=== PATIENT | male | born 1960 | race African-American/Black ===

== ENCOUNTER 2016-08-18 19:07 | Emergency (ER) | payer SELFPAY ==
[~2016-08-18] VITALS: Ht 152.4 cm; Wt 106.0 kg
[~2016-08-18 19:07] MED LIST: CIPROFLOXACN500 MG PO
[2016-08-18 20:51] LABS: URINE BILIRUBIN - DIPSTICK NEGATIVE (NEGATIVE); URINE BLOOD DIPSTICK LARGE (NEGATIVE); URINE CLARITY TURBID; URINE GLUCOSE - DIPSTICK NEGATIVE (NEGATIVE); URINE KETONE TRACE mg/dL (NEGATIVE); URINE PH 6.5 (4.5-8.0); URINE PROTEIN - DIPSTICK >=300 mg/dL (NEG-TRACE); URINE SPECIFIC GRAVITY 1.025
[2016-08-18 20:51] LABS: HEMATOCRIT 47.6 % (39.0-50.0); IMMATURE GRANULOCYTES 0.1 % (0.0-1.0); MEAN CELL VOLUME 85.9 fL CALC (80.0-100.0); MEAN CORPUSCULAR HGB 28.9 pG CALC (26.0-32.0); MEAN CORPUSCULAR HGB CONC 33.6 g/L CALC (32.0-36.0); NEUT# 5.46 thou/uL (1.82-7.42); RED BLOOD COUNT 5.54 mill/uL (4.70-6.10); RED CELL DISTRI WIDTH 12.7 % (11.5-15.5)
[2016-08-18 20:52] LABS: URINE COLOR BLOODY; URINE LEUK ESTERASE SMALL (NEGATIVE); URINE NITRITE - DIPSTICK POSITIVE (Negative); URINE RBC TNTC RBC/hpf (0-5)
[2016-08-18 21:02] LABS: ALBUMIN 4.5 g/dL (3.2-5.0); ALKALINE PHOSPHATASE 58 u/l (38-126); ANION GAP 16 (6-22 (CALC)); BILIRUBIN, TOTAL 1.1 mg/dL (0.0-1.4); BUN 15 mg/dL (9-20); BUN/CREATININE RATIO 17 (12-20 (CALC)); CALCIUM 9.4 mg/dL (8.4-10.2); CARBON DIOXIDE 27 mmol/l (22-30); CHLORIDE 100 mmol/l (95-108); CREATININE 0.9 mg/dL (0.7-1.3); GFR > 60 ML/MIN (>=60 (CALC)); GFR FOR AFR.AMER. > 60 ML/MIN (>=60 (CALC)); GLUCOSE 78 mg/dL (75-110); POTASSIUM 4.4 mmol/l (3.5-5.1); SGOT/AST 41 u/l (17-59); SGPT/ALT 18 u/l (21-72); SODIUM 138 mmol/l (137-146); TOTAL PROTEIN 8.1 g/dL (6.3-8.2)
[2016-08-18 21:09] LABS: ACT PARTIAL THROMBO TIME 22.9 SECONDS (20.0-32.5); PROTHROMBIN TIME 10.4 SECONDS (9.0-12.5)
[2016-08-18] MEDS ORDERED: Levaquin PO (22:56)
[2016-08-18 23:27] VITALS: BP 138/70
== END 2016-08-18 23:22 | disposition home or self-care (01) | DRG 690 ==
LOC: ED 19:07
PROVIDERS: Emergency Medicine
DX: N39.0 Urinary tract infection, site not specified (principal); B96.20 Unspecified Escherichia coli [E. coli] as the cause of diseases classified elsewhere; R31.9 Hematuria, unspecified; R10.32 Left lower quadrant pain

== ENCOUNTER 2016-09-09 15:34 | Emergency (ER) | payer SELFPAY ==
[~2016-09-09] VITALS: Ht 177.8 cm; Wt 232.3 kg
[~2016-09-09 15:34] MED LIST changes: +Levaquin PO
[2016-09-09] MEDS ORDERED: LISINOPRIL20 M1 PO (16:14)
[2016-09-09] MEDS ORDERED: LIPITOR20 MG PO (16:15)
[2016-09-09] MEDS ORDERED: AMLODIPINE BESYL5 MG PO (16:15)
[2016-09-09 18:00] LABS: URINE BILIRUBIN - DIPSTICK NEGATIVE (NEGATIVE); URINE BLOOD DIPSTICK TRACE-INTACT (NEGATIVE); URINE CLARITY CLEAR; URINE COLOR YELLOW; URINE GLUCOSE - DIPSTICK NEGATIVE (NEGATIVE); URINE KETONE NEGATIVE (NEGATIVE); URINE LEUK ESTERASE NEGATIVE (NEGATIVE); URINE NITRITE - DIPSTICK NEGATIVE (Negative); URINE PROTEIN - DIPSTICK NEGATIVE (NEG-TRACE); URINE SPECIFIC GRAVITY >=1.030; URINE UROBILINOGEN - DIPSTICK 0.2 E.U./dL (0.2)
[2016-09-09] MEDS ORDERED: ULTRAM50 M1 PO (18:16)
[2016-09-09] MEDS ORDERED: CIPROFLOXACN500 MG PO (18:16)
[2016-09-09 18:20] VITALS: BP 144/74
== END 2016-09-09 18:20 | disposition home or self-care (01) | DRG 728 ==
LOC: ED 15:34
PROVIDERS: Emergency Medicine
DX: N45.1 Epididymitis (principal); N50.82 Scrotal pain

== ENCOUNTER 2016-10-24 04:03 | Emergency (ER) | payer SELFPAY ==
[~2016-10-24] VITALS: Ht 177.8 cm; Wt 108.0 kg
[~2016-10-24 04:03] MED LIST changes: +AMLODIPINE BESYL5 MG PO; +LIPITOR20 MG PO; +LISINOPRIL20 M1 PO; +ULTRAM50 M1 PO
[2016-10-24] MEDS ORDERED: TRAMADOL HYDROC50 MG PO (05:42)
[2016-10-24 05:56] VITALS: BP 140/87
== END 2016-10-24 05:56 | disposition home or self-care (01) | DRG 605 ==
LOC: ED 04:03
DX: S50.01XA Contusion of right elbow, initial encounter (principal); I10 Essential (primary) hypertension; M77.9 Enthesopathy, unspecified; I25.10 Atherosclerotic heart disease of native coronary artery without angina pectoris; F17.210 Nicotine dependence, cigarettes, uncomplicated; W01.0XXA Fall on same level from slipping, tripping and stumbling without subsequent striking against object, initial encounter; Y93.89 Activity, other specified; Y92.008 Other place in unspecified non-institutional (private) residence as the place of occurrence of the external cause

== ENCOUNTER 2016-12-29 08:14 | Emergency (ER) | payer SELFPAY ==
[~2016-12-29] VITALS: Ht 177.8 cm; Wt 104.5 kg
[~2016-12-29 08:14] MED LIST changes: +TRAMADOL HYDROC50 MG PO
[2016-12-29 08:15] VITALS: BP 139/108
[2016-12-29] MEDS ORDERED: EC-NAPROSYN500 MG PO (08:42)
== END 2016-12-29 08:50 | disposition home or self-care (01) | DRG 605 ==
LOC: ED 08:14
DX: S80.01XA Contusion of right knee, initial encounter (principal); M25.461 Effusion, right knee; M25.561 Pain in right knee; V53.5XXA Driver of pick-up truck or van injured in collision with car, pick-up truck or van in traffic accident, initial encounter; Y92.414 Local residential or business street as the place of occurrence of the external cause

== ENCOUNTER 2017-06-05 15:27 | Emergency (ER) | payer SELFPAY ==
[~2017-06-05] VITALS: Ht 177.8 cm; Wt 100.0 kg
[~2017-06-05 15:27] MED LIST changes: +EC-NAPROSYN500 MG PO
[2017-06-05] MEDS ORDERED: ZITHROMAX250 MG PO (16:00)
[2017-06-05] MEDS ORDERED: PREDNISONE50 MG PO (16:00)
[2017-06-05] MEDS ORDERED: VENTOLIN HFA IN (16:00)
[2017-06-05] MEDS ORDERED: ALBUTEROL SUL0.083 % IN (16:00)
[2017-06-05] MEDS ORDERED: ASPIRINCHW 81MG PO (16:17)
[2017-06-05 16:34] LABS: HEMOGLOBIN 16.4 g/dl (14.0-18.0); IMMATURE GRANULOCYTES 0.2 % (0.0-1.0); MEAN CELL VOLUME 86.4 fL CALC (80.0-100.0); MEAN CORPUSCULAR HGB 28.3 pG CALC (26.0-32.0); MEAN CORPUSCULAR HGB CONC 32.8 g/L CALC (32.0-36.0); NEUT# 2.58 thou/uL (1.82-7.42); RED BLOOD COUNT 5.79 mill/uL (4.70-6.10); RED CELL DISTRI WIDTH 12.6 % (11.5-15.5)
[2017-06-05 16:46] LABS: ALBUMIN 4.2 g/dL (3.2-5.0); ANION GAP 15 (6-22 (CALC)); BILIRUBIN, TOTAL 0.5 mg/dL (0.0-1.4); BUN 11 mg/dL (9-20); BUN/CREATININE RATIO 10 (12-20 (CALC)); CARBON DIOXIDE 25 mmol/l (22-30); CHLORIDE 108 mmol/l (95-108); GFR > 60 ML/MIN (>=60 (CALC)); GFR FOR AFR.AMER. > 60 ML/MIN (>=60 (CALC)); POTASSIUM 4.3 mmol/l (3.5-5.1); SGOT/AST 36 u/l (17-59); SGPT/ALT 32 u/l (21-72); SODIUM 144 mmol/l (137-146)
[2017-06-05 16:47] LABS: ALKALINE PHOSPHATASE 94 u/l (38-126)
[2017-06-05 16:58] LABS: MYOGLOBIN 43 ng/mL (0 - 121)
[2017-06-05 17:59] VITALS: BP 145/104
== END 2017-06-05 18:25 | disposition home or self-care (01) | DRG 203 ==
LOC: ED 15:27
PROVIDERS: Emergency Medicine
DX: J98.01 Acute bronchospasm (principal); F17.200 Nicotine dependence, unspecified, uncomplicated; R06.02 Shortness of breath; R05 Cough

== ENCOUNTER 2017-06-16 17:56 | Observation (INO) | payer SELFPAY ==
[~2017-06-16] VITALS: Ht 177.8 cm; Wt 103.2 kg
[~2017-06-16 17:56] MED LIST changes: +ALBUTEROL SUL0.083 % IN; +ASPIRINCHW 81MG PO; +PREDNISONE50 MG PO; +VENTOLIN HFA IN; +ZITHROMAX250 MG PO
[2017-06-16 20:10] LABS: HEMATOCRIT 45.9 % (39.0-50.0); HEMOGLOBIN 15.1 g/dl (14.0-18.0); IMMATURE GRANULOCYTES 0.5 % (0.0-1.0); MEAN CELL VOLUME 86.1 fL CALC (80.0-100.0); MEAN CORPUSCULAR HGB 28.3 pG CALC (26.0-32.0); MEAN CORPUSCULAR HGB CONC 32.9 g/L CALC (32.0-36.0); NEUT# 4.02 thou/uL (1.82-7.42); RED BLOOD COUNT 5.33 mill/uL (4.70-6.10); RED CELL DISTRI WIDTH 12.9 % (11.5-15.5)
[2017-06-16 20:31] LABS: ALBUMIN 3.7 g/dL (3.2-5.0); ALKALINE PHOSPHATASE 89 u/l (38-126); AMYLASE 43 u/l (30-110); ANION GAP 17 (6-22 (CALC)); BILIRUBIN, TOTAL 0.4 mg/dL (0.0-1.4); BUN 19 mg/dL (9-20); BUN/CREATININE RATIO 17 (12-20 (CALC)); CARBON DIOXIDE 27 mmol/l (22-30); CHLORIDE 104 mmol/l (95-108); CREATININE 1.1 mg/dL (0.7-1.3); GFR > 60 ML/MIN (>=60 (CALC)); GFR FOR AFR.AMER. > 60 ML/MIN (>=60 (CALC)); LIPASE 137 u/l (23-300); POTASSIUM 4.5 mmol/l (3.5-5.1); SGOT/AST 37 u/l (17-59); SGPT/ALT 70 u/l (21-72); SODIUM 143 mmol/l (137-146); TOTAL PROTEIN 6.4 g/dL (6.3-8.2)
[2017-06-16 20:43] LABS: MYOGLOBIN 65 ng/mL (0 - 121)
[2017-06-16 20:50] LABS: URINE BILIRUBIN - DIPSTICK NEGATIVE (NEGATIVE); URINE BLOOD DIPSTICK NEGATIVE (NEGATIVE); URINE COLOR YELLOW; URINE GLUCOSE - DIPSTICK 100 mg/dL (NEGATIVE); URINE KETONE TRACE mg/dL (NEGATIVE); URINE NITRITE - DIPSTICK NEGATIVE (Negative); URINE PROTEIN - DIPSTICK NEGATIVE (NEG-TRACE); URINE SPECIFIC GRAVITY >=1.030; URINE UROBILINOGEN - DIPSTICK 0.2 E.U./dL (0.2)
[2017-06-16 20:53] LABS: URINE CLARITY CLEAR; URINE LEUK ESTERASE SMALL (NEGATIVE)
[2017-06-16 20:59] LABS: BARBITURATES NEGATIVE (NEGATIVE); COCAINE POSITIVE (NEGATIVE); METHADONE NEGATIVE (NEGATIVE); OXCYCODONE NEGATIVE (NEGATIVE); TETRAHYDROCANNABIONOL NEGATIVE (NEGATIVE); TRICYLIC ANTIDEPRESSANTS NEGATIVE (NEGATIVE)
[2017-06-16 21:05] LABS: URINE SQUAMOUS EPITHELIAL CELL FEW EPI/hpf (0-FEW)
[2017-06-17] VITALS (7 sets, daily range): BP systolic 142–158; BP diastolic 93–110
[2017-06-17] MEDS ORDERED: MEDDOSEPAK PO (14:58)
[2017-06-17] MEDS ORDERED: DUONEB IN (14:59)
== END 2017-06-17 18:15 | disposition home or self-care (01) | DRG 897 ==
LOC: ED 17:56 → ED-I 20:45 → ED 23:08 → MS2 23:09
PROVIDERS: Emergency Medicine; ADMIT Internal Medicine; ATTEND Internal Medicine
DX: F14.10 Cocaine abuse, uncomplicated (principal); F17.210 Nicotine dependence, cigarettes, uncomplicated; J44.9 Chronic obstructive pulmonary disease, unspecified; I10 Essential (primary) hypertension; Z82.49 Family history of ischemic heart disease and other diseases of the circulatory system
CPT/HCPCS: G0378

== ENCOUNTER 2017-07-17 03:37 | Observation (INO) | payer SELFPAY ==
[~2017-07-17] VITALS: Ht 177.8 cm; Wt 104.3 kg
[~2017-07-17 03:37] MED LIST changes: +DUONEB IN; +MEDDOSEPAK PO
[2017-07-17 04:05] LABS: HEMATOCRIT 47.2 % (39.0-50.0); HEMOGLOBIN 15.5 g/dl (14.0-18.0); IMMATURE GRANULOCYTES 0.2 % (0.0-1.0); MEAN CELL VOLUME 86.1 fL CALC (80.0-100.0); MEAN CORPUSCULAR HGB 28.3 pG CALC (26.0-32.0); MEAN CORPUSCULAR HGB CONC 32.8 g/L CALC (32.0-36.0); NEUT# 2.86 thou/uL (1.82-7.42); RED BLOOD COUNT 5.48 mill/uL (4.70-6.10)
[2017-07-17 04:18] LABS: ALBUMIN 3.7 g/dL (3.2-5.0); ALKALINE PHOSPHATASE 80 u/l (38-126); ANION GAP 17 (6-22 (CALC)); BILIRUBIN, TOTAL 0.4 mg/dL (0.0-1.4); BUN 13 mg/dL (9-20); BUN/CREATININE RATIO 13 (12-20 (CALC)); CARBON DIOXIDE 26 mmol/l (22-30); CHLORIDE 103 mmol/l (95-108); GFR > 60 ML/MIN (>=60 (CALC)); GFR FOR AFR.AMER. > 60 ML/MIN (>=60 (CALC)); POTASSIUM 4.3 mmol/l (3.5-5.1); SGOT/AST 41 u/l (17-59); SGPT/ALT 58 u/l (21-72); SODIUM 141 mmol/l (137-146); TOTAL PROTEIN 6.9 g/dL (6.3-8.2)
[2017-07-17 04:26] LABS: ACT PARTIAL THROMBO TIME 27.5 SECONDS (20.0-32.5); INTERNATIONAL NORMALIZED RATIO 0.9 RATIO (0.7-1.3); PROTHROMBIN TIME 10.3 SECONDS (9.0-12.5)
[2017-07-17 04:30] LABS: MYOGLOBIN 34 ng/mL (0 - 121)
[2017-07-17 05:32] LABS: URINE BILIRUBIN - DIPSTICK NEGATIVE (NEGATIVE); URINE BLOOD DIPSTICK NEGATIVE (NEGATIVE); URINE COLOR YELLOW; URINE GLUCOSE - DIPSTICK 100 mg/dL (NEGATIVE); URINE KETONE NEGATIVE (NEGATIVE); URINE NITRITE - DIPSTICK NEGATIVE (Negative); URINE PH 5.5 (4.5-8.0); URINE PROTEIN - DIPSTICK NEGATIVE (NEG-TRACE); URINE SPECIFIC GRAVITY >=1.030; URINE UROBILINOGEN - DIPSTICK 0.2 E.U./dL (0.2)
[2017-07-17 05:33] LABS: URINE CLARITY SL CLOUDY; URINE LEUK ESTERASE SMALL (NEGATIVE)
[2017-07-17 05:58] LABS: URINE BACTERIA FEW hpf; URINE RBC 0-2 RBC/hpf (0-5); URINE SQUAMOUS EPITHELIAL CELL FEW EPI/hpf (0-FEW); URINE WBC 50-100 WBC/hpf (0-5)
[2017-07-17 06:50] VITALS: BP 148/106
[2017-07-17 06:59] LABS: BARBITURATES NEGATIVE (NEGATIVE); COCAINE POSITIVE (NEGATIVE); METHADONE NEGATIVE (NEGATIVE); OXCYCODONE NEGATIVE (NEGATIVE); TETRAHYDROCANNABIONOL NEGATIVE (NEGATIVE); TRICYLIC ANTIDEPRESSANTS NEGATIVE (NEGATIVE)
[2017-07-17 08:45] LABS: CHOLESTEROL HDL RATIO 5.3 (<4.4 (CALC)); MAGNESIUM 1.9 mg/dL (1.6-2.3)
[2017-07-17 11:12] VITALS: BP 145/84
[2017-07-17 15:33] VITALS: BP 168/116
[2017-07-17 15:40] VITALS: BP 161/115
[2017-07-17 17:49] VITALS: BP 147/103
[2017-07-17 19:10] VITALS: BP 149/101
[2017-07-18 00:05] VITALS: BP 119/80
[2017-07-18 04:10] VITALS: BP 118/71
[2017-07-18 05:15] LABS: HEMATOCRIT 46.2 % (39.0-50.0); HEMOGLOBIN 15.3 g/dl (14.0-18.0); MEAN CELL VOLUME 85.9 fL CALC (80.0-100.0); MEAN CORPUSCULAR HGB 28.4 pG CALC (26.0-32.0); MEAN CORPUSCULAR HGB CONC 33.1 g/L CALC (32.0-36.0); RED BLOOD COUNT 5.38 mill/uL (4.70-6.10); RED CELL DISTRI WIDTH 13.2 % (11.5-15.5)
[2017-07-18 05:48] LABS: ANION GAP 21 (6-22 (CALC)); BUN 21 mg/dL (9-20); BUN/CREATININE RATIO 20 (12-20 (CALC)); CARBON DIOXIDE 26 mmol/l (22-30); CHLORIDE 96 mmol/l (95-108); GFR > 60 ML/MIN (>=60 (CALC)); GFR FOR AFR.AMER. > 60 ML/MIN (>=60 (CALC)); POTASSIUM 4.6 mmol/l (3.5-5.1); SODIUM 138 mmol/l (137-146)
[2017-07-18 07:31] VITALS: BP 129/69
[2017-07-18 10:46] VITALS: BP 117/80
[2017-07-18] MEDS ORDERED: MEDDOSEPAK PO (11:52)
[2017-07-18] MEDS ORDERED: AMLODIPINE BESYL5 MG PO (11:52)
[2017-07-18] MEDS ORDERED: ASPIRINCHW 81MG PO (11:52)
[2017-07-18] MEDS ORDERED: GLUCOPHAGE500 MG PO (11:52)
[2017-07-18] MEDS ORDERED: Levaquin PO (11:52)
[2017-07-18] MEDS ORDERED: LISINOPRIL20 M1 PO (11:52)
[2017-07-18] MEDS ORDERED: LIPITOR20 MG PO (11:52)
[2017-07-18] MEDS ORDERED: DUONEB IN (21:08)
== END 2017-07-18 13:09 | disposition home or self-care (01) | DRG 918 ==
LOC: ED 03:37 → ED-I 05:25 → ED 06:10 → MS2 06:11
PROVIDERS: Emergency Medicine; Nurse Practitioner Family; ADMIT Internal Medicine; ATTEND Internal Medicine
DX: T40.5X1A Poisoning by cocaine, accidental (unintentional), initial encounter (principal); J44.1 Chronic obstructive pulmonary disease with (acute) exacerbation; J68.3 Other acute and subacute respiratory conditions due to chemicals, gases, fumes and vapors; R07.9 Chest pain, unspecified; I16.0 Hypertensive urgency; I10 Essential (primary) hypertension; F14.10 Cocaine abuse, uncomplicated; E78.5 Hyperlipidemia, unspecified; E11.9 Type 2 diabetes mellitus without complications; Z91.14 Patient's other noncompliance with medication regimen; Z87.891 Personal history of nicotine dependence
CPT/HCPCS: G0378

== ENCOUNTER 2017-08-21 23:07 | Observation (INO) | payer SELFPAY ==
[~2017-08-21] VITALS: Ht 177.8 cm; Wt 102.1 kg
[~2017-08-21 23:07] MED LIST changes: +GLUCOPHAGE500 MG PO
[2017-08-21 23:47] LABS: HEMATOCRIT 45.1 % (39.0-50.0); HEMOGLOBIN 14.4 g/dl (14.0-18.0); IMMATURE GRANULOCYTES 0.2 % (0.0-1.0); MEAN CELL VOLUME 85.6 fL CALC (80.0-100.0); MEAN CORPUSCULAR HGB 27.3 pG CALC (26.0-32.0); MEAN CORPUSCULAR HGB CONC 31.9 g/L CALC (32.0-36.0); NEUT# 3.48 thou/uL (1.82-7.42); RED BLOOD COUNT 5.27 mill/uL (4.70-6.10); RED CELL DISTRI WIDTH 12.7 % (11.5-15.5)
[2017-08-22 00:03] LABS: ALBUMIN 3.8 g/dL (3.2-5.0); ALKALINE PHOSPHATASE 77 u/l (38-126); ANION GAP 15 (6-22 (CALC)); BILIRUBIN, TOTAL 0.3 mg/dL (0.0-1.4); BUN 14 mg/dL (9-20); BUN/CREATININE RATIO 15 (12-20 (CALC)); CARBON DIOXIDE 26 mmol/l (22-30); CHLORIDE 105 mmol/l (95-108); CREATININE 0.9 mg/dL (0.7-1.3); GFR > 60 ML/MIN (>=60 (CALC)); GFR FOR AFR.AMER. > 60 ML/MIN (>=60 (CALC)); POTASSIUM 4.1 mmol/l (3.5-5.1); SGOT/AST 20 u/l (17-59); SGPT/ALT 31 u/l (21-72); SODIUM 142 mmol/l (137-146); TOTAL PROTEIN 7.1 g/dL (6.3-8.2)
[2017-08-22 00:11] LABS: MYOGLOBIN 32 ng/mL (0 - 121)
[2017-08-22 01:35] VITALS: BP 142/101
[2017-08-22 02:45] LABS: URINE BILIRUBIN - DIPSTICK NEGATIVE (NEGATIVE); URINE BLOOD DIPSTICK NEGATIVE (NEGATIVE); URINE CLARITY SL CLOUDY; URINE COLOR YELLOW; URINE GLUCOSE - DIPSTICK 250 mg/dL (NEGATIVE); URINE KETONE NEGATIVE (NEGATIVE); URINE LEUK ESTERASE TRACE (NEGATIVE); URINE NITRITE - DIPSTICK NEGATIVE (Negative); URINE PH 5.5 (4.5-8.0); URINE PROTEIN - DIPSTICK NEGATIVE (NEG-TRACE); URINE SPECIFIC GRAVITY 1.015; URINE UROBILINOGEN - DIPSTICK 0.2 E.U./dL (0.2)
[2017-08-22 02:50] LABS: BARBITURATES NEGATIVE (NEGATIVE); COCAINE POSITIVE (NEGATIVE); METHADONE NEGATIVE (NEGATIVE); OXCYCODONE NEGATIVE (NEGATIVE); TETRAHYDROCANNABIONOL NEGATIVE (NEGATIVE); TRICYLIC ANTIDEPRESSANTS NEGATIVE (NEGATIVE)
[2017-08-22 04:15] VITALS: BP 154/105
[2017-08-22 07:55] VITALS: BP 155/109
[2017-08-22 13:00] VITALS: BP 137/103
[2017-08-22 16:00] VITALS: BP 143/104
[2017-08-22 19:45] VITALS: BP 144/97
[2017-08-23 00:25] VITALS: BP 134/86
[2017-08-23 04:55] VITALS: BP 129/85
[2017-08-23 05:31] LABS: BUN 14 mg/dL (9-20); BUN/CREATININE RATIO 17 (12-20 (CALC)); CARBON DIOXIDE 26 mmol/l (22-30); CHLORIDE 102 mmol/l (95-108); CREATININE 0.8 mg/dL (0.7-1.3); GFR > 60 ML/MIN (>=60 (CALC)); GFR FOR AFR.AMER. > 60 ML/MIN (>=60 (CALC)); MAGNESIUM 2.1 mg/dL (1.6-2.3); SODIUM 142 mmol/l (137-146)
[2017-08-23 05:32] LABS: ANION GAP 19 (6-22 (CALC)); POTASSIUM 5.1 mmol/l (3.5-5.1)
[2017-08-23 08:15] VITALS: BP 154/106
[2017-08-23] MEDS ORDERED: IPRATROPIU0.5 MG/3 M IN (12:30)
[2017-08-23] MEDS ORDERED: PREDNISONE10 MG PO (12:30)
[2017-08-23] MEDS ORDERED: GLUCOPHAGE500 MG PO (12:30)
[2017-08-23 13:40] VITALS: BP 146/101
[2017-08-23] MEDS ORDERED: AMLODIPINE BESY10 MG PO (15:28)
[2017-08-23] MEDS ORDERED: LISINOPRIL20 M1 PO (15:28)
[2017-08-23] MEDS ORDERED: LIPITOR20 M1 PO (15:28)
== END 2017-08-23 15:35 | disposition home or self-care (01) | DRG 918 ==
LOC: ED 23:07 → ED-I 08-22 00:37 → ED 08-22 00:49 → MS2 08-22 00:50
PROVIDERS: Emergency Medicine; Nurse Practitioner Family; ADMIT Internal Medicine; ATTEND Internal Medicine
DX: T40.5X1A Poisoning by cocaine, accidental (unintentional), initial encounter (principal); J68.0 Bronchitis and pneumonitis due to chemicals, gases, fumes and vapors; J44.1 Chronic obstructive pulmonary disease with (acute) exacerbation; E11.9 Type 2 diabetes mellitus without complications; I10 Essential (primary) hypertension; F17.210 Nicotine dependence, cigarettes, uncomplicated; F14.10 Cocaine abuse, uncomplicated; E78.5 Hyperlipidemia, unspecified; Z79.84 Long term (current) use of oral hypoglycemic drugs
CPT/HCPCS: G0378

== ENCOUNTER 2017-09-28 10:58 | Observation (INO) | payer SELFPAY ==
[~2017-09-28] VITALS: Ht 177.8 cm; Wt 105.7 kg
[~2017-09-28 10:58] MED LIST changes: +AMLODIPINE BESY10 MG PO; +IPRATROPIU0.5 MG/3 M IN; +LIPITOR20 M1 PO; +PREDNISONE10 MG PO
--- NOTE | 2017-09-28 10:58 | NUR ---
WHEELCHAIR TO ER ROOM 190, TO BED
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
[2017-09-28 11:27] LABS: HEMATOCRIT 45.9 % (39.0-50.0); HEMOGLOBIN 14.5 g/dl (14.0-18.0); IMMATURE GRANULOCYTES 0.4 % (0.0-1.0); MEAN CELL VOLUME 86.1 fL CALC (80.0-100.0); MEAN CORPUSCULAR HGB 27.2 pG CALC (26.0-32.0); MEAN CORPUSCULAR HGB CONC 31.6 g/L CALC (32.0-36.0); NEUT# 3.25 thou/uL (1.82-7.42); RED BLOOD COUNT 5.33 mill/uL (4.70-6.10); RED CELL DISTRI WIDTH 13.8 % (11.5-15.5)
[2017-09-28 11:38] LABS: ALBUMIN 3.5 g/dL (3.2-5.0); ALKALINE PHOSPHATASE 84 u/l (38-126); ANION GAP 13 (6-22 (CALC)); BILIRUBIN, TOTAL 0.6 mg/dL (0.0-1.4); BUN 13 mg/dL (9-20); BUN/CREATININE RATIO 15 (12-20 (CALC)); CARBON DIOXIDE 26 mmol/l (22-30); CHLORIDE 107 mmol/l (95-108); CREATININE 0.9 mg/dL (0.7-1.3); GFR > 60 ML/MIN (>=60 (CALC)); GFR FOR AFR.AMER. > 60 ML/MIN (>=60 (CALC)); LIPASE 134 u/l (23-300); POTASSIUM 4.4 mmol/l (3.5-5.1); SGPT/ALT 98 u/l (21-72); SODIUM 142 mmol/l (137-146); TOTAL PROTEIN 6.2 g/dL (6.3-8.2)
[2017-09-28 11:41] LABS: SGOT/AST 41 u/l (17-59)
--- NOTE | 2017-09-28 12:17 | NUR ---
PT RESTING ON STRETCHER, AWAITING RESULTS. PT ASKED FOR A BLANKET AND WAS GIVEN. NO COMPLAINTS STATED AT THIS TIME. STATES HAVING LITTLE ABDOMINAL PAIN AT THIS TIME.
--- NOTE | 2017-09-28 13:01 | NUR ---
ROSI received a call from Kala in the E.D. requesting on behalf of advice on admission status. ROSI asked the Dx. and Kala stated Cholecystitis. ROSI asked if a Lap Choole would be done and Kala replied " I believe so sir". ROSI advised Observation.
--- NOTE | 2017-09-28 14:10 | NUR ---
REPORT CALLED TO DOMINIQUE PERKINS. ACCEPTED PT. [place] [facility] [place] [facility]
--- NOTE | 2017-09-28 14:46 | NUR ---
PT RETURNED FROM SCAN, BC DRAWN, ZOSYN STARTED
--- NOTE | 2017-09-28 14:56 | NUR ---
Admission Note Report Given to: DOMINIQUE PERKINS Transported by: Wheelchair X Stretcher Transported with: X Nurse Transporter X Patent IV O2 X Habilitation Worker TRANSPORTED TO [facility] WITHOUT INCIDENT
--- NOTE | 2017-09-28 15:11 | NUR ---
REPORT RECEIVED FROM PAMELA IN ED, PT ARRIVED ON UNIT VIA STRETCHER, ALERT AND ORIENTED X 4, C/O CONSTANT PAIN TO RUQ @ 10/03, ORIENTED TO ROOM AND CALL CUATE, IVABT (PIPERCILLIN) INFUSING AT THIS TIME, WILL CONTINUE TO MONITOR.
[2017-09-28 15:29] VITALS: BP 156/108
[2017-09-28 16:47] LABS: URINE BILIRUBIN - DIPSTICK NEGATIVE (NEGATIVE); URINE BLOOD DIPSTICK NEGATIVE (NEGATIVE); URINE COLOR YELLOW; URINE GLUCOSE - DIPSTICK 500 mg/dL (NEGATIVE); URINE KETONE NEGATIVE (NEGATIVE); URINE LEUK ESTERASE NEGATIVE (NEGATIVE); URINE NITRITE - DIPSTICK NEGATIVE (Negative); URINE PROTEIN - DIPSTICK TRACE mg/dL (NEG-TRACE)
[2017-09-28 16:48] LABS: URINE CLARITY CLEAR
[2017-09-28 16:50] LABS: BARBITURATES NEGATIVE (NEGATIVE); COCAINE POSITIVE (NEGATIVE); METHADONE NEGATIVE (NEGATIVE); OXCYCODONE NEGATIVE (NEGATIVE); TETRAHYDROCANNABIONOL NEGATIVE (NEGATIVE); TRICYLIC ANTIDEPRESSANTS NEGATIVE (NEGATIVE)
--- NOTE | 2017-09-28 17:46 | NUR ---
DR STATON CALLED AND INQUIRED ABOUT RESULT OF HIDA SCAN, RADIOLY INFORMED OF REQUEST AND REPORTED WOULD BRING COPY OF RESULT TO UNIT PER (JUAN)
[2017-09-28 18:00] VITALS: BP 139/91
--- NOTE | 2017-09-28 19:25 | NUR ---
PT.IS SITTING ON SIDE OF BED WATCHING TV. NO S/S OF DISTRESS NOTED. DR. AGUSTIN WAS IN TO SEE PT. PT.IS NOW REQUESTING FOOD STATING TOLD HIM HE COULD NOW EAT. ORDERS WILL BE CHECKED. BEDSIDE REPORT RECEIVED FROM DAY NURSE AND POC DISCUSSED.
--- NOTE | 2017-09-28 21:31 | NUR ---
PT.WAS AMBULATING RANDALL FOR A LITTLE WHILE, BUT IS NOW BACK IN BED W/LIGHTS OUT AND TV ON. MEDICATED ORDERS PROVIDE, ASSESSMENT COMPLETED AT THIS TIME. LUNG SOUNDS ARE CLEAR/DIM, ABD DIST/SOFT/NON-TENDER, LOCX4, PT REPORTS NORMAL BM YESTERDAY AND URINAL EMPTIED OF 300CC OF CLEAR YELLOW URINE AT THIS TIME. NO S/S OF DISTRESS, PT.DENIES PAIN/N/V.
[2017-09-29 00:13] VITALS: BP 159/104
--- NOTE | 2017-09-29 00:36 | NUR ---
PT.MEDICATED ORDERS PROVIDE W/ANTIBIOTIC IV THERAPY. PT.WAS SLEEPING UPON ENTERING ROOM. LIGHTS OUT AND TV ON. DENIES ANY OTHER NEEDS AT THIS TIME. CALL LIGHT W/IN REACH.
[2017-09-29 00:45] VITALS: BP 143/95
[2017-09-29 04:32] VITALS: BP 139/95
--- NOTE | 2017-09-29 05:10 | NUR ---
PT.MEDICATED ORDERS PROVIDE W/IV ANTIBIOTIC THERAPY. PT.WAS SLEEPING, AWOKE TO MY ENTERING ROOM. NO S/S OF DISTRESS. PT DENIES ANY OTHER NEEDS AT THIS TIME.
--- NOTE | 2017-09-29 07:23 | NUR ---
SHIFT CHANGE REPORT FROM OLEG, PT SLEEPING, BREATHING EVEN AND NON-LABORED, IVF INFUSING, TELE MONITOR IN PLACE, CALL CUELLO IN REACH.
[2017-09-29 07:48] VITALS: BP 138/102
[2017-09-29 10:33] VITALS: BP 130/98
--- NOTE | 2017-09-29 10:51 | NUR ---
AWOKE AND ATE BREAKFAST THIS AM, DENIES ABD DISCOMFORT, RESTING IN BED NOW, CALL CUELLO IN REACH.
[2017-09-29] MEDS ORDERED: GLUCOPHAGE500 MG PO (13:38)
[2017-09-29] MEDS ORDERED: PREDNISONE10 MG PO (13:38)
[2017-09-29] MEDS ORDERED: IPRATROPIU0.5 MG/3 M IN (13:38)
[2017-09-29] MEDS ORDERED: NEBULIZER KIT/TUBING (13:39)
[2017-09-29 15:10] VITALS: BP 134/91
--- NOTE | 2017-09-29 15:28 | NUR ---
Discharge instructions given. Patient verbalizes understanding of same. Discharged in good condition via Ambulatory to Home with family. All belongings sent with pt.
== END 2017-09-29 15:31 | disposition home or self-care (01) | DRG 392 ==
LOC: ED 10:58 → ED-I 12:58 → ED 13:12 → MS2 13:13
PROVIDERS: Family Medicine; ADMIT Internal Medicine; ATTEND Internal Medicine
DX: R10.11 Right upper quadrant pain (principal); J44.1 Chronic obstructive pulmonary disease with (acute) exacerbation; I10 Essential (primary) hypertension; E11.9 Type 2 diabetes mellitus without complications; F17.210 Nicotine dependence, cigarettes, uncomplicated; F14.10 Cocaine abuse, uncomplicated; E78.5 Hyperlipidemia, unspecified
CPT/HCPCS: A9537; G0378; Q9967

== ENCOUNTER 2017-10-16 12:32 | Emergency (ER) | payer SELFPAY ==
[~2017-10-16] VITALS: Ht 177.8 cm; Wt 101.2 kg
[~2017-10-16 12:32] MED LIST changes: +NEBULIZER KIT/TUBING
[2017-10-16 12:49] VITALS: BP 121/75
== END 2017-10-16 12:49 | disposition left against medical advice (07) | DRG 951 ==
LOC: ED 12:32 → LWOBS 12:48
DX: Z91.19 Patient's noncompliance with other medical treatment and regimen (principal); J44.9 Chronic obstructive pulmonary disease, unspecified; E11.9 Type 2 diabetes mellitus without complications; I10 Essential (primary) hypertension; F17.210 Nicotine dependence, cigarettes, uncomplicated

== ENCOUNTER 2018-01-30 09:42 | Emergency (ER) | payer SELFPAY ==
[~2018-01-30] VITALS: Ht 177.8 cm; Wt 104.5 kg
[2018-01-30 10:17] LABS: HEMATOCRIT 46.4 % (39.0-50.0); HEMOGLOBIN 14.6 g/dl (14.0-18.0); IMMATURE GRANULOCYTES 0.4 % (0.0-5.0); MEAN CORPUSCULAR HGB 27.7 pG CALC (26.0-32.0); MEAN CORPUSCULAR HGB CONC 31.5 g/L CALC (32.0-36.0); NEUT# 3.11 thou/uL (1.82-7.42); RED BLOOD COUNT 5.27 mill/uL (4.70-6.10); RED CELL DISTRI WIDTH 13.7 % (11.5-15.5)
[2018-01-30 10:31] LABS: ALBUMIN 3.5 g/dL (3.2-5.0); ALKALINE PHOSPHATASE 62 u/l (38-126); ANION GAP 13 (6-22 (CALC)); BILIRUBIN, TOTAL 1.1 mg/dL (0.0-1.4); BUN 15 mg/dL (9-20); BUN/CREATININE RATIO 15 (12-20 (CALC)); CARBON DIOXIDE 28 mmol/l (22-30); CHLORIDE 105 mmol/l (95-108); GFR > 60 ML/MIN (>=60 (CALC)); GFR FOR AFR.AMER. > 60 ML/MIN (>=60 (CALC)); POTASSIUM 3.9 mmol/l (3.5-5.1); SGOT/AST 42 u/l (17-59); SODIUM 141 mmol/l (137-146); TOTAL PROTEIN 6.3 g/dL (6.3-8.2)
[2018-01-30] MEDS ORDERED: LASIX20 MG PO (11:34)
[2018-01-30] MEDS ORDERED: LISINOPRIL20 MG PO (11:34)
[2018-01-30 11:36] VITALS: BP 127/89
== END 2018-01-30 11:43 | disposition home or self-care (01) | DRG 293 ==
LOC: ED 09:42
PROVIDERS: Emergency Medicine
DX: I11.0 Hypertensive heart disease with heart failure (principal); I50.9 Heart failure, unspecified; E11.9 Type 2 diabetes mellitus without complications; J44.9 Chronic obstructive pulmonary disease, unspecified; F17.200 Nicotine dependence, unspecified, uncomplicated

== ENCOUNTER 2018-02-01 18:03 | Emergency (ER) | payer SELFPAY ==
[~2018-02-01] VITALS: Ht 177.8 cm; Wt 114.0 kg
[~2018-02-01 18:03] MED LIST changes: +LASIX20 MG PO; +LISINOPRIL20 MG PO
[2018-02-01 18:49] LABS: HEMOGLOBIN 14.6 g/dl (14.0-18.0); IMMATURE GRANULOCYTES 0.1 % (0.0-5.0); MEAN CELL VOLUME 86.8 fL CALC (80.0-100.0); MEAN CORPUSCULAR HGB 27.5 pG CALC (26.0-32.0); MEAN CORPUSCULAR HGB CONC 31.7 g/L CALC (32.0-36.0); NEUT# 3.55 thou/uL (1.82-7.42); RED BLOOD COUNT 5.3 mill/uL (4.70-6.10); RED CELL DISTRI WIDTH 13.9 % (11.5-15.5)
[2018-02-01 19:04] LABS: ALBUMIN 3.4 g/dL (3.2-5.0); ALKALINE PHOSPHATASE 58 u/l (38-126); ANION GAP 12 (6-22 (CALC)); BILIRUBIN, TOTAL 0.6 mg/dL (0.0-1.4); BUN 19 mg/dL (9-20); BUN/CREATININE RATIO 22 (12-20 (CALC)); CARBON DIOXIDE 26 mmol/l (22-30); CHLORIDE 108 mmol/l (95-108); CREATININE 0.9 mg/dL (0.7-1.3); GFR > 60 ML/MIN (>=60 (CALC)); GFR FOR AFR.AMER. > 60 ML/MIN (>=60 (CALC)); POTASSIUM 4.5 mmol/l (3.5-5.1); SGOT/AST 57 u/l (17-59); SODIUM 142 mmol/l (137-146); TOTAL PROTEIN 6.2 g/dL (6.3-8.2)
[2018-02-01 19:06] LABS: ACT PARTIAL THROMBO TIME 24.3 SECONDS (20.0-32.5); D-DIMER 1.23 mg/L (0.19-0.60); PROTHROMBIN TIME 10.8 SECONDS (9.0-12.5)
[2018-02-01 19:15] LABS: MYOGLOBIN 49 ng/mL (0 - 121)
--- NOTE | 2018-02-01 20:18 | NUR ---
BREATHING TREATMENT GIVEN BACK TO BACK USING A FACE MASK. BREATHING TECH. FOR GOOD DEPOSITION TO THE LUNGS.
[2018-02-01 21:14] LABS: URINE BILIRUBIN - DIPSTICK NEGATIVE (NEGATIVE); URINE BLOOD DIPSTICK NEGATIVE (NEGATIVE); URINE CLARITY CLEAR; URINE COLOR YELLOW; URINE GLUCOSE - DIPSTICK NEGATIVE (NEGATIVE); URINE KETONE NEGATIVE (NEGATIVE); URINE LEUK ESTERASE TRACE (NEGATIVE); URINE NITRITE - DIPSTICK NEGATIVE (Negative); URINE PROTEIN - DIPSTICK NEGATIVE (NEG-TRACE); URINE UROBILINOGEN - DIPSTICK 0.2 E.U./dL (0.2)
[2018-02-01 21:16] LABS: BARBITURATES NEGATIVE (NEGATIVE); COCAINE NEGATIVE (NEGATIVE); METHADONE NEGATIVE (NEGATIVE); TETRAHYDROCANNABIONOL NEGATIVE (NEGATIVE); TRICYLIC ANTIDEPRESSANTS NEGATIVE (NEGATIVE)
[2018-02-01 21:17] LABS: OXCYCODONE NEGATIVE (NEGATIVE)
[2018-02-01] MEDS ORDERED: POT CHLORIDE10 ME5 PO (21:40)
[2018-02-01] MEDS ORDERED: LASIX 40 MG TAB40 MG PO (21:40)
[2018-02-01] MEDS ORDERED: METOLAZONE5 MG PO (21:40)
[2018-02-01 21:53] VITALS: BP 122/91
== END 2018-02-01 22:05 | disposition home or self-care (01) | DRG 948 ==
LOC: ED 18:03
PROVIDERS: Family Medicine
DX: R60.1 Generalized edema (principal); E11.9 Type 2 diabetes mellitus without complications; I10 Essential (primary) hypertension; J44.9 Chronic obstructive pulmonary disease, unspecified; F17.210 Nicotine dependence, cigarettes, uncomplicated
CPT/HCPCS: Q9967

== ENCOUNTER 2018-05-20 18:49 | Observation (INO) | payer MEDICAID ==
[~2018-05-20] VITALS: Ht 177.8 cm; Wt 101.5 kg
[~2018-05-20 18:49] MED LIST changes: +LASIX 40 MG TAB40 MG PO; +METOLAZONE5 MG PO; +POT CHLORIDE10 ME5 PO
--- NOTE | 2018-05-20 19:15 | NUR ---
PT ARRIVES TO ROOM WITH SHORTNESS OF BREATH. RESP TX PROVIDED UPON ARRIVAL TO ROOM, PT BREATHING IMPROVED. IV ESTABLISHED, BLOOD DRAWN, PCXR DONE.
[2018-05-20] MEDS ORDERED: XARELTO20 MG PO (19:18)
[2018-05-20 19:19] LABS: HEMATOCRIT 45.7 % (39.0-50.0); IMMATURE GRANULOCYTES 0.3 % (0.0-5.0); MEAN CELL VOLUME 84.9 fL CALC (80.0-100.0); MEAN CORPUSCULAR HGB 27.9 pG CALC (26.0-32.0); MEAN CORPUSCULAR HGB CONC 32.8 g/L CALC (32.0-36.0); NEUT# 3.28 thou/uL (1.82-7.42); RED BLOOD COUNT 5.38 mill/uL (4.70-6.10); RED CELL DISTRI WIDTH 14.4 % (11.5-15.5)
[2018-05-20 19:34] LABS: BILIRUBIN, TOTAL 0.6 mg/dL (0.0-1.4); CREATININE 1.5 mg/dL (0.7-1.3); POTASSIUM 4.3 mmol/l (3.5-5.1); TOTAL PROTEIN 6.6 g/dL (6.3-8.2)
[2018-05-20 21:00] VITALS: BP 138/97
--- NOTE | 2018-05-20 21:00 | NUR ---
RECEIVED REPORT FROM ER NURSE KEVIN, PATIENT TRANSPORTED VIA BED, PATIENT WITH STEADY GAIT, NOTED TO HAVE EXERTIONAL DYSPNEA. PATIENT ORIENTED TO ROOM AND CALL LIGHT SYSTEM.
--- NOTE | 2018-05-20 21:04 | NUR ---
PT TAKEN TO ROOM 278 WITHOUT INCIDENT, REPORT WAS TO JACK.
[2018-05-20 23:44] VITALS: BP 114/78
--- NOTE | 2018-05-21 | NUR ---
PATIENT RESTING IN BED EYES CLOSED PRN SONATA GIVEN FOR SLEEP, WITH O2 AT 2LPM VA NC, WITH EVEN UNLABORED BREATHING CALL LIGHT AT REACH
[2018-05-21 04:43] VITALS: BP 147/93
--- NOTE | 2018-05-21 05:08 | NUR ---
PATIENT RESTING IN BED, EYES CLOSED NO DISCOMFORTS NOTED AT THIS TIME, WITH O2 AT 2LPM VIA NC EVEN UNLABORED BREATGING CALL LIGHT AT REACH,
[2018-05-21 05:24] LABS: HEMATOCRIT 45.5 % (39.0-50.0); HEMOGLOBIN 14.8 g/dl (14.0-18.0); IMMATURE GRANULOCYTES 0.3 % (0.0-5.0); MEAN CELL VOLUME 86.5 fL CALC (80.0-100.0); MEAN CORPUSCULAR HGB 28.1 pG CALC (26.0-32.0); MEAN CORPUSCULAR HGB CONC 32.5 g/L CALC (32.0-36.0); NEUT# 5.13 thou/uL (1.82-7.42); RED BLOOD COUNT 5.26 mill/uL (4.70-6.10); RED CELL DISTRI WIDTH 14.4 % (11.5-15.5)
[2018-05-21 05:39] LABS: ALBUMIN 3.8 g/dL (3.2-5.0); ALKALINE PHOSPHATASE 69 u/l (38-126); AMYLASE 55 u/l (30-110); ANION GAP 15 (6-22 (CALC)); BILIRUBIN, TOTAL 0.5 mg/dL (0.0-1.4); BUN 22 mg/dL (9-20); BUN/CREATININE RATIO 17 (12-20 (CALC)); CARBON DIOXIDE 26 mmol/l (22-30); CHLORIDE 104 mmol/l (95-108); CREATININE 1.3 mg/dL (0.7-1.3); GFR 57 ML/MIN (>=60 (CALC)); GFR FOR AFR.AMER. > 60 ML/MIN (>=60 (CALC)); LIPASE 53 u/l (23-300); MAGNESIUM 1.8 mg/dL (1.6-2.3); POTASSIUM 4.7 mmol/l (3.5-5.1); SGOT/AST 20 u/l (17-59); SODIUM 140 mmol/l (137-146); TOTAL PROTEIN 6.5 g/dL (6.3-8.2)
--- NOTE | 2018-05-21 07:23 | NUR ---
REPORT RECEIVED FROM NIGHT NURSE; PT SITTING UP IN BED AWAKE, WATCHING TV;
[2018-05-21 07:40] VITALS: BP 151/98
--- NOTE | 2018-05-21 08:51 | NUR ---
0849-MORNING MEDICATIONS ADMINISTERED WITH NUMERICAL CONTROL PROGRAMMER STUDENT ROSIE. PT STATED WANTED COUGH SYRUP. NO PRN COUGH SYRUP IN [place]. WILL ASK DOCTOR TO ORDER IT ONCE HE ARRIVES. PT STABLE. TOLERATED SHELLFISH CHECKER WELL. CALL LIGHT AND PHONE WITHIN REACH. PT STABLE LYING IN BED. BED LOW AND LOCKED. WILL CONTINUE TO MONITOR.
--- NOTE | 2018-05-21 08:55 | NUR ---
0849- MORNING MEDS ADMINISTERED WITH INSTRUCTOR KODAK JENKINS, GREGORIO . PT TOLERATED WEEL. PT ASKED FOR COUGH SYRUP. NO ORDER FOR COUGH SYRUP IN [place] AT THIS TIME. WILL CONSULT DOCTOR FOR NEW AORDER. PT STABLE IN BED WITH CALL [facility] AND PHONE IN REACH. WILL CONTINUE TO MONITOR.
--- NOTE | 2018-05-21 10:09 | NUR ---
1006- PT RESTING IN BED WATCHING TV. GIVEN FRESH WATER. CALL LIGHT AND PHONE WITHIN REACH. WILL CONTINUE TO MONITOR.
--- NOTE | 2018-05-21 11:45 | NUR ---
DR WHITING AWARE OF ELEVATED B/P 156/112
[2018-05-21 11:55] VITALS: BP 156/112
--- NOTE | 2018-05-21 12:10 | NUR ---
PT BEING CARED FOR BY BUTT WELDER; RESP EVEN AND UNLABORED; PT EATING LUNCH; TELE IN PLACE; WILL CONTINUE TO MONITOR.
--- NOTE | 2018-05-21 12:31 | NUR ---
1229- PT RESTING RECYLINER WATCHING TV. CALL LIGHT AND PHONME IN REACH. WILL CONTIUNE TO MONITOR.
--- NOTE | 2018-05-21 12:33 | NUR ---
PT SITTING UP IN CHAIR; DR WHITING AT BEDSIDE TO DISCUSS POC; TELE IN PLACE; RESP EVEN AND UNLABORED;
--- NOTE | 2018-05-21 13:03 | NUR ---
1303- PT SITTING IN RECYLINER TALKING ON PHONE. RESPORATIONS NORAML AND UNLABORED. GIVEN LISINOPRIL FOR B/P. PATIENT TOLERATED MED WELL. CALL LIGHT IN REACH. WILL CONTINUE TO MONITOR.
[2018-05-21 14:15] VITALS: BP 150/100
--- NOTE | 2018-05-21 14:15 | NUR ---
DR WHITING AWARE OF B/P 150/100
[2018-05-21 16:21] VITALS: BP 160/110
--- NOTE | 2018-05-21 17:07 | NUR ---
PT AMBULATED THE HALLS EARLIER, NOW SITTING UP IN CHAIR WITH LEGS ELEVATED ON THE BED, WATCHING TV; REST EVEN AND UNLABORED ON 02@2L NC; ACCU CHECK 137; URINAL IN REACH. WILL CONTINUE TO MONITOR
--- NOTE | 2018-05-21 19:00 | NUR ---
RECEIVED REPORT FROM DAY NURSE. PT RESTING IN BED WATCHING TV. 02 @ 2L. NO NEEDS AT THIS TIME. CALL CUELLO IN REACH. WILL CONTINUE TO MONITOR.
[2018-05-21 19:28] VITALS: BP 148/98
--- NOTE | 2018-05-21 20:52 | NUR ---
PT RESTING IN BED WATCHING TV. O2 @ 2L. PT IS A&0 x3. ASSESMENT COMPLETED AT THIS TIME(SEE INTERVENTIONS) LUNG SOUNDS CLEAR, BOWEL SOUNDS , HEART SOUNDS IRREGULAR. NO SWELLING OR EDEMA. IV FLUSHES WELL. NO NEEDS AT THIS TIME. CALL CUELLO IN REACH. WILL CONTINUE TO MONITR.
--- NOTE | 2018-05-21 23:48 | NUR ---
PT AMBULATING THROUGH HALLS WITH STEADY GAIT. JUST STRECHING HIS LEGS HE STATES. NO NEEDS AT THIS TIME.
[2018-05-22 00:29] VITALS: BP 129/98
[2018-05-22 00:32] LABS: BARBITURATES NEGATIVE (NEGATIVE); COCAINE NEGATIVE (NEGATIVE); METHADONE NEGATIVE (NEGATIVE); OXCYCODONE NEGATIVE (NEGATIVE); TETRAHYDROCANNABIONOL NEGATIVE (NEGATIVE); TRICYLIC ANTIDEPRESSANTS NEGATIVE (NEGATIVE)
--- NOTE | 2018-05-22 04:00 | NUR ---
PT RESTING QUIETLY WITH EYES CLOSED NO S/S OF DISTRESS NOTED/ CALL CUELLO IN REACH. O2 @ 2L. WILL CONTINUE TO MONITOR.
[2018-05-22 04:15] VITALS: BP 125/83
[2018-05-22 06:04] LABS: HEMATOCRIT 44.4 % (39.0-50.0); HEMOGLOBIN 14.7 g/dl (14.0-18.0); IMMATURE GRANULOCYTES 0.4 % (0.0-5.0); MEAN CELL VOLUME 85.7 fL CALC (80.0-100.0); MEAN CORPUSCULAR HGB 28.4 pG CALC (26.0-32.0); MEAN CORPUSCULAR HGB CONC 33.1 g/L CALC (32.0-36.0); NEUT# 13.99 thou/uL (1.82-7.42); RED BLOOD COUNT 5.18 mill/uL (4.70-6.10); RED CELL DISTRI WIDTH 14.5 % (11.5-15.5)
[2018-05-22 06:17] LABS: ALBUMIN 3.9 g/dL (3.2-5.0); ALKALINE PHOSPHATASE 68 u/l (38-126); ANION GAP 14 (6-22 (CALC)); BILIRUBIN, TOTAL 0.6 mg/dL (0.0-1.4); BUN 23 mg/dL (9-20); BUN/CREATININE RATIO 25 (12-20 (CALC)); CARBON DIOXIDE 26 mmol/l (22-30); CHLORIDE 103 mmol/l (95-108); CREATININE 0.9 mg/dL (0.7-1.3); GFR > 60 ML/MIN (>=60 (CALC)); GFR FOR AFR.AMER. > 60 ML/MIN (>=60 (CALC)); MAGNESIUM 2.2 mg/dL (1.6-2.3); POTASSIUM 4.6 mmol/l (3.5-5.1); SGOT/AST 25 u/l (17-59); SODIUM 139 mmol/l (137-146); TOTAL PROTEIN 6.5 g/dL (6.3-8.2)
--- NOTE | 2018-05-22 06:55 | NUR ---
PT REPORT RECIEVED FROM GRACE READ. PT RESTING. NO S/S OF DISTRESS. CALL LIGHT IN REACH. WILL CONTINUE TO MONITOR.
[2018-05-22 07:37] VITALS: BP 144/94
--- NOTE | 2018-05-22 07:37 | NUR ---
PT A/O X3. SPEECH IS CLEAR. NONPRODUCTIVE COUGH NOTED. RESP EVEN AND UNLABORED. UPPER LOBES CLEAR, LOWER LOBES DIMINISHED. TELE IN PLACE. O2 @2L AT BEDSIDE. BOWEL SOUNDS ACTIVE X4. STRONG RADIAL AND PEDAL PULSES. #20 RAC SL. FLUSHED AND PATENT. SITE APPEARS HEALTHY. SKIN IS INTACT. PT DENIES ANY PAIN OR NEEDS. POC DISCUSSED. SAFETY PRECAUTIONS IN PLACE. CALL LIGHT IN REACH. WILL CONTINUE TO MONITOR.
--- NOTE | 2018-05-22 11:17 | NUR ---
PT IN BED TALKING W/ FRIEND. TELE IN PLACE. O2@2L AT BEDSIDE. NO C/O PAIN OR NEEDS. CALL LIGHT IN REACH. WILL CONTINUE TO MONITOR.
[2018-05-22 12:00] VITALS: BP 135/86
--- NOTE | 2018-05-22 15:53 | NUR ---
PT WATCHING TELEVISION. PT DENIES ANY PAIN OR NEEDS. TELE IN PLACE. CALL LIGHT IN REACH. WILL CONTINUE TO MONITOR.
[2018-05-22 16:00] VITALS: BP 137/86
[2018-05-22 19:27] VITALS: BP 133/89
--- NOTE | 2018-05-22 20:05 | NUR ---
ASSESSMENT COMPLETED: IV SITE IS FREE FROM REDNESS OR EDEMA. HR IS REG,PULSES ARE STRONG X4, ABD IS SOFT WITH ACTIVE BS., BREATH SOUNDS ARE CLEAR, BILATERALLY, O2 @ 2LITERS WITH NC. ONLY WEARS PRN. TELE MONTOR IN PLACE. CONTINUE TO OSBERVE AND MONITOR. CALL CUELOL WITHIN REACH.,
[2018-05-23] VITALS: BP 107/72
--- NOTE | 2018-05-23 00:45 | NUR ---
PT IS RELAXING IN BED WITH NO DISTRESS NOTED. IV SITE IS FREE FROM REDNESS OR EDEMA. CONTINUE TO OSBERVE AND TWINIOR.
[2018-05-23 04:00] VITALS: BP 124/86
--- NOTE | 2018-05-23 04:30 | NUR ---
PT AMBULATED IN THE RANDALL WAY WITH NO DISTRESS NOTED, IV SITE IS FREE FROM REDNESS OR EDEMA CONTINUE TO OBSERVE AND MONITOR.
--- NOTE | 2018-05-23 07:29 | NUR ---
REPORT RECEIVED FROM GRACE LIRIANO. PT SLEEPING. CALL LIGHT WITHIN REACH.
[2018-05-23 07:51] VITALS: BP 123/79
[2018-05-23 11:20] VITALS: BP 126/90
--- NOTE | 2018-05-23 12:11 | NUR ---
REPORT RECEIVED FROM LEIF, PT ALERT AND ORIENTED AMBULATING HALLWAYS, NO C/O DISCOMFORT, ANTICIPATING GOING HOME TODAY, WILL CONTINUE TO MONITOR.
[2018-05-23] MEDS ORDERED: AMLODIPINE BESY10 MG PO (13:52)
--- NOTE | 2018-05-23 14:21 | NUR ---
Discharge instructions given. Patient verbalizes understanding of same. Discharged in good condition via Ambulatory to Home with *Other. All belongings sent with pt.
--- NOTE | 2018-05-23 14:22 | NUR ---
IV site discontinued, cath intact. No edema , no redness, voices no discomfort. REMOVED BY CUT IN WORKER UNDER RN SUPERVISION
== END 2018-05-23 14:22 | disposition home or self-care (01) | DRG 191 ==
LOC: ED 18:49 → ED-I 19:55 → ED 20:13 → MS2 20:14
PROVIDERS: Emergency Medicine; ADMIT Internal Medicine Nephrology; ATTEND Internal Medicine Nephrology
DX: J44.1 Chronic obstructive pulmonary disease with (acute) exacerbation (principal); N17.9 Acute kidney failure, unspecified; I50.20 Unspecified systolic (congestive) heart failure; I11.0 Hypertensive heart disease with heart failure; I48.91 Unspecified atrial fibrillation; E11.9 Type 2 diabetes mellitus without complications; E78.5 Hyperlipidemia, unspecified; F14.10 Cocaine abuse, uncomplicated; Z87.891 Personal history of nicotine dependence; Z79.01 Long term (current) use of anticoagulants; Z79.84 Long term (current) use of oral hypoglycemic drugs
CPT/HCPCS: G0378

== ENCOUNTER 2018-09-04 13:56 | Observation (INO) | payer MEDICAID ==
[~2018-09-04] VITALS: Ht 177.8 cm; Wt 103.6 kg
[~2018-09-04 13:56] MED LIST changes: +XARELTO20 MG PO
[2018-09-04 15:05] LABS: HEMATOCRIT 45.4 % (39.0-50.0); HEMOGLOBIN 13.9 g/dl (14.0-18.0); IMMATURE GRANULOCYTES 0.3 % (0.0-5.0); MEAN CELL VOLUME 87.6 fL CALC (80.0-100.0); MEAN CORPUSCULAR HGB 26.8 pG CALC (26.0-32.0); MEAN CORPUSCULAR HGB CONC 30.6 g/L CALC (32.0-36.0); NEUT# 3.4 thou/uL (1.82-7.42); RED BLOOD COUNT 5.18 mill/uL (4.70-6.10); RED CELL DISTRI WIDTH 13.7 % (11.5-15.5)
[2018-09-04 15:14] LABS: ANION GAP 12 (6-22 (CALC)); BUN 18 mg/dL (9-20); BUN/CREATININE RATIO 17 (12-20 (CALC)); CARBON DIOXIDE 27 mmol/l (22-30); CHLORIDE 106 mmol/l (95-108); CREATININE 1.1 mg/dL (0.7-1.3); GFR > 60 ML/MIN (>=60 (CALC)); GFR FOR AFR.AMER. > 60 ML/MIN (>=60 (CALC)); POTASSIUM 4.1 mmol/l (3.5-5.1); SODIUM 140 mmol/l (137-146)
[2018-09-04] MEDS ORDERED: CARVEDILOL3.125 MG PO (16:19)
[2018-09-04] MEDS ORDERED: METFORMIN500 MG PO (16:19)
[2018-09-04] MEDS ORDERED: ASPIRIN81 MG PO (16:20)
[2018-09-04] MEDS ORDERED: LASIX 40 MG40 MG/TAB PO (16:20)
[2018-09-04] MEDS ORDERED: K-DUR/KLOR-CON20 MEQ PO (16:22)
[2018-09-04] MEDS ORDERED: SYMBICORT1 AE1 IN (16:22)
[2018-09-04 18:25] VITALS: BP 120/85
[2018-09-04 19:30] VITALS: BP 117/83
[2018-09-05 00:05] VITALS: BP 121/86
[2018-09-05 03:18] VITALS: BP 132/86
[2018-09-05 05:20] LABS: HEMATOCRIT 44.8 % (39.0-50.0); IMMATURE GRANULOCYTES 0.3 % (0.0-5.0); MEAN CELL VOLUME 86.5 fL CALC (80.0-100.0); MEAN CORPUSCULAR HGB CONC 31.3 g/L CALC (32.0-36.0); NEUT# 6.08 thou/uL (1.82-7.42); RED BLOOD COUNT 5.18 mill/uL (4.70-6.10); RED CELL DISTRI WIDTH 13.5 % (11.5-15.5)
[2018-09-05 05:32] LABS: ALBUMIN 3.7 g/dL (3.2-5.0); ALKALINE PHOSPHATASE 67 u/l (38-126); BILIRUBIN, TOTAL 0.6 mg/dL (0.0-1.4); BUN 19 mg/dL (9-20); BUN/CREATININE RATIO 20 (12-20 (CALC)); CARBON DIOXIDE 26 mmol/l (22-30); CHLORIDE 103 mmol/l (95-108); CREATININE 0.9 mg/dL (0.7-1.3); GFR > 60 ML/MIN (>=60 (CALC)); GFR FOR AFR.AMER. > 60 ML/MIN (>=60 (CALC)); SODIUM 138 mmol/l (137-146); TOTAL PROTEIN 6.1 g/dL (6.3-8.2)
[2018-09-05 05:33] LABS: ANION GAP 14 (6-22 (CALC)); SGOT/AST 67 u/l (17-59)
[2018-09-05 07:51] VITALS: BP 133/87
[2018-09-05 10:42] VITALS: BP 135/91
[2018-09-05 14:09] VITALS: BP 117/67
[2018-09-05 19:35] VITALS: BP 110/70
[2018-09-06 00:40] VITALS: BP 113/85
[2018-09-06 04:10] VITALS: BP 103/73
[2018-09-06 05:03] LABS: HEMATOCRIT 45.1 % (39.0-50.0); IMMATURE GRANULOCYTES 0.5 % (0.0-5.0); MEAN CELL VOLUME 87.2 fL CALC (80.0-100.0); MEAN CORPUSCULAR HGB 27.1 pG CALC (26.0-32.0); NEUT# 13.46 thou/uL (1.82-7.42); RED BLOOD COUNT 5.17 mill/uL (4.70-6.10); RED CELL DISTRI WIDTH 13.8 % (11.5-15.5)
[2018-09-06 05:22] LABS: ALBUMIN 3.6 g/dL (3.2-5.0); ALKALINE PHOSPHATASE 67 u/l (38-126); ANION GAP 14 (6-22 (CALC)); BILIRUBIN, TOTAL 0.5 mg/dL (0.0-1.4); BUN 23 mg/dL (9-20); BUN/CREATININE RATIO 24 (12-20 (CALC)); CARBON DIOXIDE 25 mmol/l (22-30); CHLORIDE 103 mmol/l (95-108); CREATININE 0.9 mg/dL (0.7-1.3); GFR > 60 ML/MIN (>=60 (CALC)); GFR FOR AFR.AMER. > 60 ML/MIN (>=60 (CALC)); MAGNESIUM 2.2 mg/dL (1.6-2.3); SGOT/AST 40 u/l (17-59); SODIUM 137 mmol/l (137-146)
[2018-09-06 06:30] LABS: POTASSIUM 5.3 mmol/l (3.5-5.1)
[2018-09-06 08:04] VITALS: BP 123/90
[2018-09-06 10:50] VITALS: BP 127/87
[2018-09-06] MEDS ORDERED: IPRATROPIU0.5 MG/3 M IN (13:22)
[2018-09-06] MEDS ORDERED: DOXYCYCL HYC100 MG PO (13:23)
[2018-09-06] MEDS ORDERED: ACCU-CHEK FASTCLIX L XX (13:24)
[2018-09-06] MEDS ORDERED: MEDDOSEPAK PO (13:26)
== END 2018-09-06 14:04 | disposition home or self-care (01) ==
LOC: ED 13:56 → ED-I 15:23 → ED 15:39 → MS2 15:40
PROVIDERS: Family Medicine; ADMIT Internal Medicine Nephrology; ATTEND Internal Medicine Nephrology
DX: J44.1 Chronic obstructive pulmonary disease with (acute) exacerbation (principal); E11.9 Type 2 diabetes mellitus without complications; I10 Essential (primary) hypertension; I48.0 Paroxysmal atrial fibrillation; I47.1 Supraventricular tachycardia; F17.210 Nicotine dependence, cigarettes, uncomplicated; E78.5 Hyperlipidemia, unspecified; Z79.84 Long term (current) use of oral hypoglycemic drugs; Z79.01 Long term (current) use of anticoagulants; Z91.19 Patient's noncompliance with other medical treatment and regimen
CPT/HCPCS: G0378; J1650

== ENCOUNTER 2018-12-20 11:19 | Observation (INO) | payer MEDICAID ==
[~2018-12-20] VITALS: Ht 177.8 cm; Wt 103.9 kg
[~2018-12-20 11:19] MED LIST changes: +ACCU-CHEK FASTCLIX L XX; +ASPIRIN81 MG PO; +CARVEDILOL3.125 MG PO; +DOXYCYCL HYC100 MG PO; +K-DUR/KLOR-CON20 MEQ PO; +LASIX 40 MG40 MG/TAB PO; +METFORMIN500 MG PO; +SYMBICORT1 AE1 IN
[2018-12-20 12:35] LABS: HEMATOCRIT 44.7 % (39.0-50.0); HEMOGLOBIN 13.8 g/dl (14.0-18.0); IMMATURE GRANULOCYTES 0.2 % (0.0-5.0); MEAN CELL VOLUME 83.4 fL CALC (80.0-100.0); MEAN CORPUSCULAR HGB 25.7 pG CALC (26.0-32.0); MEAN CORPUSCULAR HGB CONC 30.9 g/L CALC (32.0-36.0); NEUT# 3.78 thou/uL (1.82-7.42); RED BLOOD COUNT 5.36 mill/uL (4.70-6.10); RED CELL DISTRI WIDTH 14.6 % (11.5-15.5)
[2018-12-20 12:54] LABS: ALBUMIN 3.6 g/dL (3.2-5.0); ALKALINE PHOSPHATASE 83 u/l (38-126); ANION GAP 12 (6-22 (CALC)); BILIRUBIN, TOTAL 0.6 mg/dL (0.0-1.4); BUN 18 mg/dL (9-20); BUN/CREATININE RATIO 17 (12-20 (CALC)); CARBON DIOXIDE 29 mmol/l (22-30); CHLORIDE 104 mmol/l (95-108); GFR > 60 ML/MIN (>=60 (CALC)); GFR FOR AFR.AMER. > 60 ML/MIN (>=60 (CALC)); POTASSIUM 4.4 mmol/l (3.5-5.1); SGOT/AST 31 u/l (17-59); SODIUM 140 mmol/l (137-146); TOTAL PROTEIN 6.2 g/dL (6.3-8.2)
[2018-12-20 13:03] LABS: MYOGLOBIN 45 ng/mL (0 - 121)
[2018-12-20 14:50] VITALS: BP 114/85
[2018-12-20 19:40] VITALS: BP 129/89
[2018-12-21 00:13] VITALS: BP 132/81
[2018-12-21 05:01] VITALS: BP 121/84
[2018-12-21 07:17] VITALS: BP 129/93
[2018-12-21 07:43] LABS: URINE BILIRUBIN - DIPSTICK NEGATIVE (NEGATIVE); URINE BLOOD DIPSTICK NEGATIVE (NEGATIVE); URINE COLOR YELLOW; URINE GLUCOSE - DIPSTICK >=1000 mg/dL (NEGATIVE); URINE KETONE NEGATIVE (NEGATIVE); URINE LEUK ESTERASE NEGATIVE (NEGATIVE); URINE NITRITE - DIPSTICK NEGATIVE (Negative); URINE PROTEIN - DIPSTICK NEGATIVE (NEG-TRACE); URINE UROBILINOGEN - DIPSTICK 0.2 E.U./dL (0.2)
[2018-12-21 08:09] VITALS: BP 129/93
[2018-12-21] MEDS ORDERED: IPRATROPIU0.5 MG/3 M IN (09:31)
[2018-12-21] MEDS ORDERED: Levaquin PO (09:31)
[2018-12-21] MEDS ORDERED: PREDNISONE10 MG PO (09:31)
[2018-12-21] MEDS ORDERED: ZYLOPRIM100 MG PO (09:35)
== END 2018-12-21 10:57 | disposition home or self-care (01) ==
LOC: ED 11:19 → ED-I 11:43 → MS2 13:30 → ED 13:38 → ED-I 13:38 → MS2 12-21 10:57
PROVIDERS: Emergency Medicine; ADMIT Internal Medicine; ATTEND Internal Medicine
DX: J44.1 Chronic obstructive pulmonary disease with (acute) exacerbation (principal); E11.9 Type 2 diabetes mellitus without complications; I10 Essential (primary) hypertension; I48.91 Unspecified atrial fibrillation; E78.5 Hyperlipidemia, unspecified; M10.072 Idiopathic gout, left ankle and foot; F14.10 Cocaine abuse, uncomplicated; F17.200 Nicotine dependence, unspecified, uncomplicated; Z79.84 Long term (current) use of oral hypoglycemic drugs; Z79.01 Long term (current) use of anticoagulants
CPT/HCPCS: G0378

== ENCOUNTER 2019-03-22 08:22 | Observation (INO) | payer MEDICAID ==
[~2019-03-22] VITALS: Ht 177.8 cm; Wt 101.3 kg
[~2019-03-22 08:22] MED LIST changes: +ZYLOPRIM100 MG PO
[2019-03-22 09:09] LABS: HEMATOCRIT 47.7 % (39.0-50.0); HEMOGLOBIN 14.8 g/dl (14.0-18.0); IMMATURE GRANULOCYTES 0.2 % (0.0-5.0); MEAN CELL VOLUME 85.5 fL CALC (80.0-100.0); MEAN CORPUSCULAR HGB 26.5 pG CALC (26.0-32.0); NEUT# 2.89 thou/uL (1.82-7.42); RED BLOOD COUNT 5.58 mill/uL (4.70-6.10); RED CELL DISTRI WIDTH 15.2 % (11.5-15.5)
[2019-03-22 09:23] LABS: ALBUMIN 4.3 g/dL (3.2-5.0); ALKALINE PHOSPHATASE 82 u/l (38-126); ANION GAP 15 (6-22 (CALC)); BILIRUBIN, TOTAL 0.4 mg/dL (0.0-1.4); BUN 19 mg/dL (9-20); BUN/CREATININE RATIO 22 (12-20 (CALC)); CARBON DIOXIDE 24 mmol/l (22-30); CHLORIDE 107 mmol/l (95-108); CREATININE 0.9 mg/dL (0.7-1.3); GFR > 60 ML/MIN (>=60 (CALC)); GFR FOR AFR.AMER. > 60 ML/MIN (>=60 (CALC)); POTASSIUM 4.5 mmol/l (3.5-5.1); SGOT/AST 52 u/l (17-59); SODIUM 140 mmol/l (137-146)
[2019-03-22 09:29] LABS: TOTAL PROTEIN 7.8 g/dL (6.3-8.2)
[2019-03-22 12:00] VITALS: BP 116/98
[2019-03-22 15:13] VITALS: BP 119/87
[2019-03-22 19:44] VITALS: BP 133/80
[2019-03-23] VITALS (7 sets, daily range): BP systolic 106–140; BP diastolic 71–90
[2019-03-24 03:50] VITALS: BP 124/59
[2019-03-24 05:23] LABS: HEMATOCRIT 43.4 % (39.0-50.0); HEMOGLOBIN 13.6 g/dl (14.0-18.0); MEAN CELL VOLUME 85.4 fL CALC (80.0-100.0); MEAN CORPUSCULAR HGB 26.8 pG CALC (26.0-32.0); MEAN CORPUSCULAR HGB CONC 31.3 g/L CALC (32.0-36.0); RED BLOOD COUNT 5.08 mill/uL (4.70-6.10); RED CELL DISTRI WIDTH 15.6 % (11.5-15.5)
[2019-03-24 05:48] LABS: ANION GAP 13 (6-22 (CALC)); BUN 23 mg/dL (9-20); BUN/CREATININE RATIO 26 (12-20 (CALC)); CARBON DIOXIDE 25 mmol/l (22-30); CHLORIDE 102 mmol/l (95-108); CREATININE 0.9 mg/dL (0.7-1.3); GFR > 60 ML/MIN (>=60 (CALC)); GFR FOR AFR.AMER. > 60 ML/MIN (>=60 (CALC)); MAGNESIUM 2.1 mg/dL (1.6-2.3); POTASSIUM 4.6 mmol/l (3.5-5.1); SODIUM 136 mmol/l (137-146)
[2019-03-24 08:45] VITALS: BP 126/62
[2019-03-24 10:59] VITALS: BP 129/87
[2019-03-24 14:25] VITALS: BP 112/83
[2019-03-24] MEDS ORDERED: PREDNISONE50 MG PO (17:10)
[2019-03-24] MEDS ORDERED: AMOX/K CLAV875 M1 PO (17:10)
[2019-03-24] MEDS ORDERED: PROVENTIL0.083 % IN (17:10)
[2019-03-24] MEDS ORDERED: ZITHROMAX500 MG PO (17:10)
== END 2019-03-24 17:56 | disposition home or self-care (01) ==
LOC: ED 08:22 → ED-I 10:05 → ED 10:12 → MS2 10:13
PROVIDERS: Nurse Practitioner Family; ADMIT Internal Medicine; ATTEND Internal Medicine
DX: J44.1 Chronic obstructive pulmonary disease with (acute) exacerbation (principal); J20.9 Acute bronchitis, unspecified; J44.0 Chronic obstructive pulmonary disease with (acute) lower respiratory infection; E11.9 Type 2 diabetes mellitus without complications; I10 Essential (primary) hypertension; I48.91 Unspecified atrial fibrillation; E78.5 Hyperlipidemia, unspecified; F17.210 Nicotine dependence, cigarettes, uncomplicated; I47.1 Supraventricular tachycardia; Z79.01 Long term (current) use of anticoagulants; Z79.84 Long term (current) use of oral hypoglycemic drugs
CPT/HCPCS: G0378

== ENCOUNTER 2019-06-23 10:21 | Observation (INO) | payer MEDICAID ==
[~2019-06-23] VITALS: Ht 177.8 cm; Wt 103.1 kg
[~2019-06-23 10:21] MED LIST changes: +AMOX/K CLAV875 M1 PO; +PROVENTIL0.083 % IN; +ZITHROMAX500 MG PO
--- NOTE | 2019-06-23 10:21 | NUR ---
PATIENT TO ROOM VIA WHEELCHAIR AND PHYSICIAN AT BEDSIDE FOR EVAL
--- NOTE | 2019-06-23 10:50 | NUR ---
PT SWABBED FOR COVID 19 VIRUS
--- NOTE | 2019-06-23 10:55 | NUR ---
PT RESP EVEN AND UNLABORED AT THIS TIME, SWABS FOR FLU,STREP AND COVID 19 OBTAINED. PT UPDATED ON POC AND TESTING. PT STATES "YOU ARE GONNA HAVE TO GET ME A SANDWICH BECAUSE I HAENT EATEN, AND A COKE".
[2019-06-23 11:10] LABS: HEMATOCRIT 45.8 % (39.0-50.0); HEMOGLOBIN 13.6 g/dl (14.0-18.0); IMMATURE GRANULOCYTES 0.4 % (0.0-5.0); MEAN CELL VOLUME 86.3 fL CALC (80.0-100.0); MEAN CORPUSCULAR HGB 25.6 pG CALC (26.0-32.0); MEAN CORPUSCULAR HGB CONC 29.7 g/dL CAL (32.0-36.0); NEUT# 9.26 thou/uL (1.82-7.42); RED BLOOD COUNT 5.31 mill/uL (4.70-6.10); RED CELL DISTRI WIDTH 13.5 % (11.5-15.5)
[2019-06-23 11:31] LABS: ALBUMIN 3.7 g/dL (3.2-5.0); ALKALINE PHOSPHATASE 56 u/l (38-126); BUN 16 mg/dL (9-20); BUN/CREATININE RATIO 20 (12-20 (CALC)); CARBON DIOXIDE 26 mmol/l (22-30); CHLORIDE 100 mmol/l (95-108); CREATININE 0.8 mg/dL (0.7-1.3); GFR > 60 ML/MIN (>=60 (CALC)); GFR FOR AFR.AMER. > 60 ML/MIN (>=60 (CALC)); SGOT/AST 51 u/l (17-59); SODIUM 134 mmol/l (137-146); TOTAL PROTEIN 6.6 g/dL (6.3-8.2)
[2019-06-23 11:44] LABS: ANION GAP 14 (6-22 (CALC)); BILIRUBIN, TOTAL 1.1 mg/dL (0.0-1.4); POTASSIUM 5.6 mmol/l (3.5-5.1)
--- NOTE | 2019-06-23 11:55 | NUR ---
PT GIVEN SANDWICH AND DIET SODA. PT IN NO RESPIRATORY DISTRESS, O2 SAT 96% ON RA. PT UPDATED ON WAIT TIME AND AGREEABLE. PT STATES UNDERSTANDING.
--- NOTE | 2019-06-23 12:45 | NUR ---
PT TOLERATING IV ABT WITHOUT DIFFICULTY. RESP EVEN AND UNLABORED. VSS. PT STATES "I GUESS I SHOULD STAY OVERNIGHT". UPDATED ON WAIT. BED IN LOW POSITION .MAINTAINED ON AIRBORNE PRECAUITONS THROUGHOUT STAY IN ED.
--- NOTE | 2019-06-23 13:27 | NUR ---
PT STATES "IM NOT TO SURE" WHEN ASKED TO INFORM NURSE OF ROUTINE MEDS. PT STATES THEIR IS NO ONE AT HOME THAT VOULD BRING MEDS OR TAKE PIC TO SEND
--- NOTE | 2019-06-23 13:29 | NUR ---
UNABLE TO VERIFY PATIENT MEDICATION LIST PHARMACY CONSULT ENTERED MD NOTIFIED
--- NOTE | 2019-06-23 13:30 | NUR ---
IV ABT COMPLETED. NO ADVERSE REACTIONS NOTED. VSS. NO RESP DISTRESS. MAINTAINED ON AIRBORNE PRECAUTIONS.
[2019-06-23] MEDS ORDERED: AZITHROMYCIN500 MG PO (13:38)
[2019-06-23] MEDS ORDERED: STERAPRED DS10 MG PO (13:38)
[2019-06-23] MEDS ORDERED: SPIRIVA HANDIH18 MCG IN (13:39)
[2019-06-23] MEDS ORDERED: PROAIR HFA108 MCG/AC IN (13:40)
[2019-06-23] MEDS ORDERED: LASIX 40 MG TAB40 MG PO (13:41)
[2019-06-23] MEDS ORDERED: ATORVASTATIN CA20 MG PO (13:42)
[2019-06-23] MEDS ORDERED: SYMBICORT1 AE1 IN (13:42)
[2019-06-23] MEDS ORDERED: CARVEDILOL3.125 MG PO (13:42)
[2019-06-23] MEDS ORDERED: METFORMIN HCL1000 M1 PO (13:43)
[2019-06-23] MEDS ORDERED: XARELTO20 MG PO (13:43)
[2019-06-23] MEDS ORDERED: K-DUR/KLOR-CON20 MEQ PO (13:44)
[2019-06-23] MEDS ORDERED: LISINOPRIL20 MG PO (13:44)
[2019-06-23 13:52] LABS: URINE BILIRUBIN - DIPSTICK NEGATIVE (NEGATIVE); URINE BLOOD DIPSTICK NEGATIVE (NEGATIVE); URINE COLOR YELLOW; URINE GLUCOSE - DIPSTICK >=1000 mg/dL (NEGATIVE); URINE KETONE NEGATIVE (NEGATIVE); URINE LEUK ESTERASE NEGATIVE (NEGATIVE); URINE NITRITE - DIPSTICK NEGATIVE (Negative); URINE PROTEIN - DIPSTICK NEGATIVE (NEG-TRACE); URINE UROBILINOGEN - DIPSTICK 0.2 E.U./dL (0.2)
--- NOTE | 2019-06-23 14:30 | NUR ---
PT AWARE OF IMPENDING ADMIT AND AGREEABLE. VSS.
--- NOTE | 2019-06-23 14:40 | NUR ---
REPORT REC FROM BURKE PERKINS
--- NOTE | 2019-06-23 15:00 | NUR ---
TRANSPORTED TO [place] VIA WITH MASK ON AND WRAPPED IN A BLANKET. NO COUGHING NOTED. RESP EVEN AND UNLABORED.
--- NOTE | 2019-06-23 15:11 | NUR ---
PT ARRIVED TO [place] VIA ACCOMPANIED BY BURKE PERKINS. PT A&O X3. NO DISTRESS NOTED. STEADY GAIT OBSERVED. PT DENIES ANY PAIN AT THIS TIME. NO SOB NOTED. WHEEZING HEARD UPON AUSCULTATION. PT DENIES THE USE OF ALCOHOL AT THIS TIME SAYS HE HAS NOT HAD ALCOHOL IN OVER TWO WEEKS AND WHEN HE DOES DRINK IT IS JUST OCCASSIONALLY. NO OTHER NEEDS AT THIS TIME. ORIENTED PT TO ROOM. FRANCOISE AVILA APPLIED. ASSESSMENT COMPLETED. CALL LIGHT IN REACH. CONTINUE TO MONITOR.
[2019-06-23 16:00] VITALS: BP 143/99
--- NOTE | 2019-06-23 17:00 | NUR ---
PT STANDING OUTSIDE OF ROOM, EXPLAINED TO THE PT THAT HE WAS TO KEEP DOOR CLOSED AT ALL TIMES AND UNFORTUNATELY HE WAS UNABLE TO BE OUTSIDE OF THE ROOM AT THIS TIME. PT VERBALIZED UNDERSTANDING.
[2019-06-23 20:00] VITALS: BP 133/96
--- NOTE | 2019-06-23 20:50 | NUR ---
CALLED DR. MARION AND NOTIFIED OF BLOOD SUGAR AND THAT PATIENT IS DIABETIC WITH ORDERS MADE TO START MEDIUM SLIDING SCALE AND DO AIC IN AM.
--- NOTE | 2019-06-23 21:00 | NUR ---
RECEIVED REPORT FROM NURSE PORTER PATIENT SITTING IN BED WATCHING TV, NO DISCOMFORTS NOTED, WITH SALINE LOCK ON RAC G20 PATENT FLUSHES WELL, REMAINS ON TELE SR 92, LBM 06/22, EVEN UNLABORED BREATHING, REMAINS ON AIRBORNE/ DROPLET PRECAUTION, BS 379. CALL LIGHT AT REACH.
[2019-06-23 23:24] VITALS: BP 119/88
--- NOTE | 2019-06-24 00:30 | NUR ---
PATIENT RESTING IN BED WITH EYES CLOSED, WITH EVEN UNLABORED BREATHING CALL LIGHT AT REACH.
[2019-06-24 04:54] VITALS: BP 101/80
--- NOTE | 2019-06-24 06:06 | NUR ---
PATIENT RESTING IN BED WITH EYES CLOSED, WITH EVEN UNALBORED BREATHING CALL LIGHT AT REACH.
[2019-06-24 08:00] VITALS: BP 111/85
--- NOTE | 2019-06-24 09:00 | NUR ---
PT SEEN AWAKE, ALERT, AMBULATORY IN ROOM. PT WITH DIMINISHED LUNG SOUNDS AND PRODUCTIVE COUGH. NO DISTRESS.
[2019-06-24 11:05] VITALS: BP 116/80
--- NOTE | 2019-06-24 13:00 | NUR ---
PT SITTING UP IN CHAIR FOR SEVERAL HOURS TODAY, AMBULATORY IN ROOM WITHOUT DIFFICULTY. NO FEVER NOTED. COUGH MED PROVIDED REQUESTED.
--- NOTE | 2019-06-24 13:42 | NUR ---
solumedrol ordered for pt, spoke with arun regarding steroid ordered for potential covid pt. per dr randle, pt is low risk, ok to give steroids for this pt. order verified
--- NOTE | 2019-06-24 16:21 | NUR ---
PT REMAINS BEFORE, NEGATIVE PRESSURE ROOM, NO DISTRESS OR COMPLAINTS.
[2019-06-24 16:39] VITALS: BP 90/74
[2019-06-24 19:00] VITALS: BP 97/67
--- NOTE | 2019-06-24 19:00 | NUR ---
RECEIVED REPORT FROM DAY NURSE PATIENT SITTING IN BED, WATCHING TV, REMAINS ON AIRBORNE/DROPLET PRECAUTION AT THIS TIME, ON NEGATIVE PRESSURE ROOM, EVEN UNLABORED BREATHING CALL LIGHT AT REACH.
--- NOTE | 2019-06-24 21:30 | NUR ---
PATIENT ALERT ORIENTED ABLE TO MAKE NEEDS KNONW, PATIENT NOTED TO BE COUGHING, SPUTUM WHITE, FROTHY, EVEN UNLABORED BREATHING. DENIES PAIN OR DISCOMFORTS, COMFORTABLE CURRENTLY WATCHING TV, WITH SALINELOCK ON RAC PATENT FLUSHES WELL, BS 294, COVERAGE GIVEN, CALL LIGHT AT REACH
[2019-06-25 00:05] VITALS: BP 95/64
--- NOTE | 2019-06-25 00:20 | NUR ---
PATIENT APPEARS TO BE SLEEPING WITH EYS CLOSED, WITH EVEN UNLABORED BREATHING CALL LIGHT AT REACH.
[2019-06-25 04:00] VITALS: BP 118/82
--- NOTE | 2019-06-25 04:51 | NUR ---
PATIENT COMFORTABLY RESTING IN BED EYES CLOSED, DENIES PAIN EVEN UNLABORED BREATHING CALL LIGHT AT REACH.
[2019-06-25 05:21] LABS: HEMATOCRIT 42.5 % (39.0-50.0); HEMOGLOBIN 13.1 g/dl (14.0-18.0); MEAN CELL VOLUME 83.7 fL CALC (80.0-100.0); MEAN CORPUSCULAR HGB 25.8 pG CALC (26.0-32.0); MEAN CORPUSCULAR HGB CONC 30.8 g/dL CAL (32.0-36.0); RED BLOOD COUNT 5.08 mill/uL (4.70-6.10); RED CELL DISTRI WIDTH 13.4 % (11.5-15.5)
[2019-06-25 05:43] LABS: ANION GAP 11 (6-22 (CALC)); BUN 25 mg/dL (9-20); BUN/CREATININE RATIO 22 (12-20 (CALC)); CARBON DIOXIDE 29 mmol/l (22-30); CHLORIDE 98 mmol/l (95-108); CREATININE 1.1 mg/dL (0.7-1.3); GFR > 60 ML/MIN (>=60 (CALC)); GFR FOR AFR.AMER. > 60 ML/MIN (>=60 (CALC)); MAGNESIUM 2.1 mg/dL (1.6-2.3); SODIUM 133 mmol/l (137-146)
--- NOTE | 2019-06-25 06:35 | NUR ---
RECIEVED CALL FROM PEREZ MCCOLLUM IN LAB-COVID 19 NEG. WILL PASS IT ON TO ONCOMING SHIFT.
--- NOTE | 2019-06-25 07:00 | NUR ---
REPORT RECEIVED FROM GREGORIO SANTIAGO.
--- NOTE | 2019-06-25 07:40 | NUR ---
PT RESTING IN SEMI FOWLERS POSITION,A&O X3;VS OBTAINED AND ASSESSMENT COMPLETED;PT DENIES ANY CURRENT PAIN OR DISCOMFORTS,PAIN SCALE AND REPORTING EDUCATED;RESPIRATIONS EVEN AND UNLABORED ON RA,DIMINISHED LUNG SOUNDS;NON-PRODUCTIVE COUGH NOTED;ABDOMEN SOFT ON PALPATION AND ACTIVE IN ALL 4 QUADRANTS;WEAK PEDAL PULSES;SKIN INTACT;TELE MONITORING IN PLACE;#20G TO RAC FLUSHED AND PATENT,SITE APPEARS HEALTHY;ACCUCHECK 310,PT COVERED WITH SLIDING SCALE NOVOLOG PER ORDER;PT DENIES ANY ADDITIONAL NEEDS AT THIS TIME AND IS ENCOURAGED TO CALL FOR ASSISTANCE IF NEEDED;FALL PRECAUTIONS IN PLACE WITH BED IN THE LOWEST POSITION AND CALL LIGHT IN REACH;WILL CONTINUE TO MONITOR
[2019-06-25 07:42] VITALS: BP 111/82
[2019-06-25 11:00] VITALS: BP 106/68
--- NOTE | 2019-06-25 11:30 | NUR ---
PT OOB RESTING IN RECLINER LAUGHING AND JOKING WITH STAFF MEMBERS;RESPIRATIONS EVEN AND UNLABORED ON RA;PT DENIES ANY CURRENT PAIN OR DISCOMFORTS;TELE MONITORING IN PLACE;IV SITE PATENT;ACCUCHECK 253, PT WAS COVERED WITH SLIDING SCALE NOVOLOG PER ORDER;ASSESSMENT REMAINS UNCHANGED AT THIS TIME;PT ENCOURAGED TO CALL FOR ASSISTANCE IF NEEDED;CALL LIGHT REMAINS IN REACH;WILL CONTINUE TO MONITOR
--- NOTE | 2019-06-25 11:39 | NUR ---
AT BEDSIDE DISCUSSING POC WITH PT.
--- NOTE | 2019-06-25 14:22 | NUR ---
PT MEDICATED WITH ROBITUSSIN AC FOR REPORTS OF COUGH.
--- NOTE | 2019-06-25 14:45 | NUR ---
PT ROOM ASSIGNMENT CHANGED AT THIS TIME TO ROOM 274 ON MED/SURG DUE TO COVID19 RESULTING NEGATIVE.
[2019-06-25 15:47] VITALS: BP 122/81
--- NOTE | 2019-06-25 15:50 | NUR ---
PT OOB RESTING IN RECLINER WATCHING TV;RESPIRATIONS EVEN AND UNLABORED RA;PT DENIES ANY CURRENT PAIN OR NEEDS;TELE MONITORING IN PLACE;IV SITE PATENT;PT DENIES ANY ADDITIONAL NEEDS AND IS ENCOURAGED TO CALL FOR ASSISTANCE IF NEEDED;CALL LIGHT IN REACH;WILL CONTINUE TO MONITOR
[2019-06-25 19:31] VITALS: BP 111/80
--- NOTE | 2019-06-25 21:14 | NUR ---
PATIENT RESTING IN BED AT THIS TIME-AWAKE ALERT AND ORIENTEDX3 ON ROOM AIR. TELE MONITOR IN PLACE. SALINE LOCK TO RAC SITE INTACT-APPEARS HEALTHY AT THIS TIME. VOIDIG CLEAR YELLOW URINE IN URINAL. STATES THAT HE HAD BM TODAY. LUNGS ARE DIMINISHED BUT CLEAR. OCC NON-PRODUCTIVE COUGH-MEDICATED WITH ROBITUSSIN AC 10CC ORDERED. NO PERIPHERAL EDEMA NOTED. PULSES ARE PALPABLE. ACCU-CHECK IS 366-MEDICATED WITH 8UNITS OF NOVALOG SQ. HS SNACK PROVIDED. SAFETY PRECAUTIONS REINFORCCED. CALL LIGHT IN REACH, WILL CONT TO MONITOR.
--- NOTE | 2019-06-26 00:01 | NUR ---
PATIENT UP AND WALKING IN THE RANDALL-RA, NO SOB NOTED. PATIENT PROVIDED WITH ICE CHIPS PER PATIENT REQUEST. TELE MONITOR IN PLACE. WILL CONT TO MONITOR.
[2019-06-26 00:33] VITALS: BP 113/78
[2019-06-26 01:07] VITALS: BP 106/73
--- NOTE | 2019-06-26 04:34 | NUR ---
PATIENT UP IN THE RANDALL-STEADY GAIT. ASKING OR MORE ICE CHIP-PROVIDED FOR PATIENT. TELE MONITOR IN PLACE. SALINE LOCK TO RAC INTACT. RETURNED TO ROOM. CALL LIGHT IN REACH. WILL CONT TO MONITOR
[2019-06-26 05:11] LABS: HEMATOCRIT 44.1 % (39.0-50.0); HEMOGLOBIN 13.5 g/dl (14.0-18.0); MEAN CELL VOLUME 83.8 fL CALC (80.0-100.0); MEAN CORPUSCULAR HGB 25.7 pG CALC (26.0-32.0); MEAN CORPUSCULAR HGB CONC 30.6 g/dL CAL (32.0-36.0); RED BLOOD COUNT 5.26 mill/uL (4.70-6.10); RED CELL DISTRI WIDTH 13.4 % (11.5-15.5)
[2019-06-26 05:28] LABS: ANION GAP 11 (6-22 (CALC)); BUN 27 mg/dL (9-20); BUN/CREATININE RATIO 29 (12-20 (CALC)); CARBON DIOXIDE 29 mmol/l (22-30); CHLORIDE 99 mmol/l (95-108); GFR > 60 ML/MIN (>=60 (CALC)); GFR FOR AFR.AMER. > 60 ML/MIN (>=60 (CALC)); MAGNESIUM 2.1 mg/dL (1.6-2.3); POTASSIUM 4.7 mmol/l (3.5-5.1); SODIUM 133 mmol/l (137-146)
--- NOTE | 2019-06-26 05:38 | NUR ---
PATIENT RESTING IN BED WATCHING T. C/O THROBBING HEADACHE-5/10 ON PAIN SCALE. MEDICATED WITH TYLENOL 650MG PO. CALL LIGHT IN REACH. WILL CONT TO MONITOR.
[2019-06-26 05:48] VITALS: BP 134/87
--- NOTE | 2019-06-26 07:00 | NUR ---
SHIFT CHANGE REPORT, PT AWAKE ALERT AND ORIENTED, C/O DIFFICLTY BREATHING, AND REQUESTED VENTOLIN INHALER, PT HAD EMPTY BOX IN ROOM IN POSSESSION AND STATED HE DIDNT KNOW WHERE THE INHLER WAS AND IT MIGHT HVE BEEN LEFT IN IS PREVIOUS ROOM. PHARMACY WAS NOTIFIED AND REPORTED PT SHOULD STILL HAVE DOSES EVEN IF HE WERE TAKING EVERY 2 HOURS NEEDED. PHARMACY PROVIDED ANOTHER INHALER, PT INSTRUCTED/EDUCATED ON HOW TO USE AND STATED UNDERSTANDING. [facility] CALL CUELLO IN REACH.
[2019-06-26 07:59] VITALS: BP 148/95
[2019-06-26 10:56] VITALS: BP 129/83
--- NOTE | 2019-06-26 10:57 | NUR ---
AMBULATES HALLWAYS AT [place], NO PHYSICAL EVIDENCE OF SOB OBSERVED AT THIS TIME.
[2019-06-26] MEDS ORDERED: PREDNISONE10 MG PO (11:26)
[2019-06-26] MEDS ORDERED: Levaquin PO (11:26)
--- NOTE | 2019-06-26 14:02 | NUR ---
Discharge instructions given. Patient verbalizes understanding of same. Discharged in good condition via Ambulatory to Home with *Other. All belongings sent with pt.
== END 2019-06-26 14:05 | disposition home or self-care (01) ==
LOC: ED 10:21 → ED-I 12:48 → ED 13:18 → MS2 13:19 → ED-I 13:19 → MS2 13:52
PROVIDERS: Family Medicine; Nurse Practitioner Family; ADMIT Internal Medicine; ATTEND Internal Medicine
DX: J43.9 Emphysema, unspecified (principal); I11.0 Hypertensive heart disease with heart failure; I50.9 Heart failure, unspecified; I48.0 Paroxysmal atrial fibrillation; E11.9 Type 2 diabetes mellitus without complications; E87.5 Hyperkalemia; E78.5 Hyperlipidemia, unspecified; F17.200 Nicotine dependence, unspecified, uncomplicated; Z79.84 Long term (current) use of oral hypoglycemic drugs; Z79.01 Long term (current) use of anticoagulants; Z20.828 Contact with and (suspected) exposure to other viral communicable diseases
CPT/HCPCS: G0378; S0164

== ENCOUNTER 2019-07-07 | Emergency (ER) | payer MEDICAID ==
[~2019-07-07] MED LIST changes: +ATORVASTATIN CA20 MG PO; +AZITHROMYCIN500 MG PO; +METFORMIN HCL1000 M1 PO; +PROAIR HFA108 MCG/AC IN; +SPIRIVA HANDIH18 MCG IN; +STERAPRED DS10 MG PO
[2019-07-07] MEDS ORDERED: ASPIRIN 8181 MG PO (04:05)
[2019-07-07 05:06] LABS: URINE BILIRUBIN - DIPSTICK NEGATIVE (NEGATIVE); URINE BLOOD DIPSTICK NEGATIVE (NEGATIVE); URINE COLOR YELLOW; URINE GLUCOSE - DIPSTICK >=1000 mg/dL (NEGATIVE); URINE KETONE NEGATIVE (NEGATIVE); URINE LEUK ESTERASE NEGATIVE (NEGATIVE); URINE NITRITE - DIPSTICK NEGATIVE (Negative); URINE PH 6.5 (4.5-8.0); URINE PROTEIN - DIPSTICK NEGATIVE (NEG-TRACE); URINE SPECIFIC GRAVITY <=1.005; URINE UROBILINOGEN - DIPSTICK 0.2 E.U./dL (0.2)
[2019-07-07 05:19] LABS: HEMATOCRIT 42.7 % (39.0-50.0); HEMOGLOBIN 13.3 g/dl (14.0-18.0); MEAN CELL VOLUME 83.1 fL CALC (80.0-100.0); MEAN CORPUSCULAR HGB 25.9 pG CALC (26.0-32.0); MEAN CORPUSCULAR HGB CONC 31.1 g/dL CAL (32.0-36.0); NEUT# 13.13 thou/uL (1.82-7.42); RED BLOOD COUNT 5.14 mill/uL (4.70-6.10); RED CELL DISTRI WIDTH 14.1 % (11.5-15.5)
[2019-07-07 05:20] LABS: ALKALINE PHOSPHATASE 90 u/l (38-126); ANION GAP 10 (6-22 (CALC)); BILIRUBIN, TOTAL 0.7 mg/dL (0.0-1.4); BUN 20 mg/dL (9-20); BUN/CREATININE RATIO 28 (12-20 (CALC)); CARBON DIOXIDE 31 mmol/l (22-30); CHLORIDE 97 mmol/l (95-108); CREATININE 0.7 mg/dL (0.7-1.3); GFR > 60 ML/MIN (>=60 (CALC)); GFR FOR AFR.AMER. > 60 ML/MIN (>=60 (CALC)); POTASSIUM 4.6 mmol/l (3.5-5.1); SGOT/AST 19 u/l (17-59); SODIUM 134 mmol/l (137-146); TOTAL PROTEIN 5.4 g/dL (6.3-8.2)
[2019-07-07] MEDS ORDERED: DIFLUCAN100 M1 PO (05:55)
[2019-07-07] MEDS ORDERED: DOXYCYCL HYC100 MG PO (05:55)
== END 2019-07-07 06:15 | disposition home or self-care (01) | DRG 728 ==
PROVIDERS: Family Medicine
DX: N45.1 Epididymitis (principal); N48.1 Balanitis; B37.0 Candidal stomatitis; E11.9 Type 2 diabetes mellitus without complications; J44.9 Chronic obstructive pulmonary disease, unspecified; I11.0 Hypertensive heart disease with heart failure; I50.9 Heart failure, unspecified; F17.210 Nicotine dependence, cigarettes, uncomplicated

== ENCOUNTER 2019-07-08 09:15 | Inpatient (IN) | payer MEDICAID ==
[2019-07-08] VITALS (7 sets, daily range): BP systolic 92–112; BP diastolic 62–79
[~2019-07-08] VITALS: Ht 177.8 cm; Wt 102.7 kg
[~2019-07-08 09:15] MED LIST changes: +ASPIRIN 8181 MG PO; +DIFLUCAN100 M1 PO
--- NOTE | 2019-07-08 09:24 | NUR ---
PT TO ROOM VIA WC FOR BEDSIDE TRIAGE
--- NOTE | 2019-07-08 09:30 | NUR ---
PT ASSESSED. AO X 3. SKIN PINK WARM AND DRY. REPORTS SCROTAL SWELLING SINCE MONDAY. SEEN IN ED ON MONDAY STARTED ON MEDICATION BUT NO IMPROVEMENT. SCROTUM AND PENIS SWOLLEN AND PAINFUL. PT REPORTS 10/10 PAIN. CHANGED TO GOWN MONITORS APPLIED
--- NOTE | 2019-07-08 09:50 | NUR ---
IV STARTED. LABS AND BLOOD CULTURES DRAWN.
[2019-07-08 10:11] LABS: HEMATOCRIT 43.5 % (39.0-50.0); HEMOGLOBIN 13.6 g/dl (14.0-18.0); IMMATURE GRANULOCYTES 0.9 % (0.0-5.0); MEAN CELL VOLUME 82.2 fL CALC (80.0-100.0); MEAN CORPUSCULAR HGB 25.7 pG CALC (26.0-32.0); MEAN CORPUSCULAR HGB CONC 31.3 g/dL CAL (32.0-36.0); NEUT# 19.21 thou/uL (1.82-7.42); RED BLOOD COUNT 5.29 mill/uL (4.70-6.10); RED CELL DISTRI WIDTH 14.3 % (11.5-15.5)
[2019-07-08 10:27] LABS: ALKALINE PHOSPHATASE 111 u/l (38-126); ANION GAP 15 (6-22 (CALC)); BILIRUBIN, TOTAL 1.6 mg/dL (0.0-1.4); BUN 17 mg/dL (9-20); BUN/CREATININE RATIO 20 (12-20 (CALC)); CARBON DIOXIDE 27 mmol/l (22-30); CHLORIDE 97 mmol/l (95-108); CREATININE 0.8 mg/dL (0.7-1.3); GFR > 60 ML/MIN (>=60 (CALC)); GFR FOR AFR.AMER. > 60 ML/MIN (>=60 (CALC)); POTASSIUM 5.5 mmol/l (3.5-5.1); SGOT/AST 23 u/l (17-59); SODIUM 133 mmol/l (137-146); TOTAL PROTEIN 5.4 g/dL (6.3-8.2)
--- NOTE | 2019-07-08 10:40 | NUR ---
PT REPORTS PAIN 10/03
--- NOTE | 2019-07-08 11:03 | NUR ---
PT RETURNED FROM CT. MONITORS APPLIED. PT RESTING COMFORTABLY ON STRETCHER. URINE SAMPLE OBTAINED
[2019-07-08 11:35] LABS: URINE BILIRUBIN - DIPSTICK NEGATIVE (NEGATIVE); URINE BLOOD DIPSTICK TRACE-INTACT (NEGATIVE); URINE COLOR YELLOW; URINE GLUCOSE - DIPSTICK >=1000 mg/dL (NEGATIVE); URINE KETONE NEGATIVE (NEGATIVE); URINE LEUK ESTERASE NEGATIVE (NEGATIVE); URINE NITRITE - DIPSTICK NEGATIVE (Negative); URINE PROTEIN - DIPSTICK TRACE mg/dL (NEG-TRACE)
--- NOTE | 2019-07-08 12:25 | NUR ---
PT RESTING ON STRETCHER. ANTIBIOTIC INFUSING
--- NOTE | 2019-07-08 13:10 | NUR ---
REPORT GIVEN TO SANTOS PERKINS. MED SURG. REPORT GIVEN TO ALBA PERKINSDIRECTOR MEDICAL SCIENCE. PT JEWLERY PLACED IN CUP AND LABELED, PLACED IN PATIENT BELONGING BAG.
[2019-07-08 13:15] LABS: BARBITURATES NEGATIVE (NEGATIVE); COCAINE POSITIVE (NEGATIVE); METHADONE NEGATIVE (NEGATIVE); OXCYCODONE NEGATIVE (NEGATIVE); TETRAHYDROCANNABIONOL NEGATIVE (NEGATIVE); TRICYLIC ANTIDEPRESSANTS NEGATIVE (NEGATIVE)
--- NOTE | 2019-07-08 13:30 | NUR ---
PT TRANSPORTED TO OR VIA STRETCHER. BEDSIDE REPORT GIVEN
--- NOTE | 2019-07-08 18:00 | NUR ---
PT ARRIVES TO ROOM 274, DROWSY BUT ALERT AND ORIENTED X 3. LUNGS CLEAR, RA. DRESSING NOTED TO PENIS AREA, DRAINAGE FROM WOUND REINFORCED. PT PROVIDED WATER UPON REQUEST, NO NAUSEA OR VOMITING.
--- NOTE | 2019-07-08 19:00 | NUR ---
RECEIVED REPORT FROM NURSE BROWN PATIENT RESTING IN BED, AWAKE, HOOKED TO O2 @ 2LPM VIA NC, WITH AVILES CATHETER DRAINING YELLOW COLOR URINE, CALL LIGHT AT REACH.
--- NOTE | 2019-07-08 20:00 | NUR ---
BS 422MG/DL, STAT BLOOD GLUCOSE ORDERED.
--- NOTE | 2019-07-08 20:25 | NUR ---
STAT BLOOD GLUSCOSE 395, WILL GIVE COVERAGE.
--- NOTE | 2019-07-08 21:00 | NUR ---
PATIENT ALERT ORIENETD ABLE TO MAKE NEEDS KNONN, C/O PAIN ON PENILE AREA WILL MEDCIATE, ON O2 @ 2LPM VIA NC EVEN UNLABORED BREATHING, WITH AVILES CATHTETER DRAINING YELLOW URINE, DRESSING ON SURGICAL INCISION HAS SANGUINEOUS DRAINAGE REINFORCED WITH ABD, PATIENT SMOKER REQUESTING NICOTINE PATCH.
--- NOTE | 2019-07-08 21:16 | NUR ---
NOTIFIED DR. ALBARRAN OF THE PATIENT REQUEST FOR NICOTINE PATCH, WITH ORDERS MADE.
[2019-07-09] VITALS (9 sets, daily range): BP systolic 100–112; BP diastolic 42–82
--- NOTE | 2019-07-09 | NUR ---
PATIENT APPEARS TO BE SLEEPING WITH EYES CLOSED, WITH EVEN UNLBAORED BREATHING CALL LIGHT AT REACH.
--- NOTE | 2019-07-09 04:29 | NUR ---
PATIENT C/O PAIN OVER PENILE AREA, PAIN MEDICATION GIVEN, WILL REEVALUATE.
[2019-07-09 05:54] LABS: HEMATOCRIT 40.6 % (39.0-50.0); HEMOGLOBIN 12.5 g/dl (14.0-18.0); IMMATURE GRANULOCYTES 0.7 % (0.0-5.0); MEAN CELL VOLUME 83.9 fL CALC (80.0-100.0); MEAN CORPUSCULAR HGB 25.8 pG CALC (26.0-32.0); MEAN CORPUSCULAR HGB CONC 30.8 g/dL CAL (32.0-36.0); NEUT# 11.65 thou/uL (1.82-7.42); RED BLOOD COUNT 4.84 mill/uL (4.70-6.10); RED CELL DISTRI WIDTH 14.3 % (11.5-15.5)
[2019-07-09 06:19] LABS: ANION GAP 11 (6-22 (CALC)); BUN 19 mg/dL (9-20); BUN/CREATININE RATIO 21 (12-20 (CALC)); CHLORIDE 104 mmol/l (95-108); CREATININE 0.9 mg/dL (0.7-1.3); GFR > 60 ML/MIN (>=60 (CALC)); GFR FOR AFR.AMER. > 60 ML/MIN (>=60 (CALC)); SODIUM 131 mmol/l (137-146)
[2019-07-09 06:26] LABS: CARBON DIOXIDE 21 mmol/l (22-30)
--- NOTE | 2019-07-09 08:01 | NUR ---
PT STATES GOOD RELIEF FROM EARLIER PAIN MEDICINE GIVEN. BREAKFAST SERVED, PT HUNGRY. IV MELANIO HUNG AT THIS TIME.
--- NOTE | 2019-07-09 08:18 | NUR ---
CALLED [facility] TO MAKE SURE THAT THEY GOT THE CONSULTATION ON THIS PT.
--- NOTE | 2019-07-09 10:28 | NUR ---
DR SANDEEP HARP [facility] HAS CHANGED DRESSING THIS MORNING. WOUND SHOWS OPEN AREA TO DORSAL PENIS AND SMALLER INCISION BELOW LOWER ABDOMEN, CONNECTED WITH CINDY DRAIN. IODIFORM PACKING WAS USED AND THEN WOUND WAS COVERED WITH 4X4s, PAPER TAPE. PT TOLERATED WELL.
--- NOTE | 2019-07-09 16:35 | NUR ---
S: GUERDA GEORGES is a 59 M who presents with PENIS ABCESS. He has a history of PENIS SURGERY. All medications in patient's chart were reviewed. O: VS: BP 109/75, P 68, RR 19,T 97.7 W 100kg, HT 70IN, Scr=0.9 ,CrCl= 103ml/min A: PENIS culture is pending P: Patient is on ZOSYN 3.375 GRAMS Q6H . Vancomycin ordered for pharmacy to dose. Start Vancomycin 1250MG IV Q8H. Vancomycin trough is drawn before the 4th dose on 07/10/19 @0530. Vancomycin goal trough is between 15-20 mcg/ml. Pharmacy will follow and or advise on antibiotics use as needed. IRVIN BOATENG PHARMD
--- NOTE | 2019-07-09 17:55 | NUR ---
PT PROVIDED PAIN MEDS NEEDED THROUGHOUT THE DAY, NO SIGNIFICANT DISCOMFORT NOTED. PT AMBULATORY TO BR AT THIS TIME, STATES NEEDS BM.
--- NOTE | 2019-07-09 20:03 | NUR ---
PT. RESTING IN BED WATCHING TV. NO RESP. DISTRESS NOTED. PACKING INTACT TO PENIS WITH BLEEDING NOTED TO GAUZE AROUND PENIS AND CHANGED OUT AT THIS TIME AND FRESH GAUZE APPLIED. AVILES CATHETER IN PLACE AND DRAINING PRAKASH URINE WITH SEDIMENTS NOTED. SCD'S IN PLACE TO BLE. PT. C/O PENILE PAIN AND MEDICATED WITH ORDERED PRN PERCOCET PER PT. WOULD LIKE TO TRY PO FIRST; WILL REASESS. FRESH ICE PROVIDED. CALL LIGHT IS IN REACH.
--- NOTE | 2019-07-09 21:35 | NUR ---
PT. CONTINUES TO C/O PENIS PAIN AND MEDICATED WITH ORDERED PRN DILAUDID; WILL REASSESS. SNACK PROVIDED. DENIES FURTHER NEEDS. DRESSING REMAINS IN PLACE.
--- NOTE | 2019-07-10 00:13 | NUR ---
PT. DENIES NEEDS/PAIN. DRESSING REMAINS IN PLACE. SCHED BRITTNEY LOVE. CALL LIGHT IS IN REACH.
[2019-07-10 03:27] VITALS: BP 97/65
--- NOTE | 2019-07-10 03:45 | NUR ---
PT. C/O PENILE PAIN AND MEDICATED WITH ORDERED PRN PERCOCET PER EMAR. WILL REASSESS. ABD PAD CHANGED TO OVERTOP OF DRESSING. FOOLEY CATHETER CONTINUES TO DRAIN. SNACK PROVIDED. CALL LIGHT IS IN REACH.
--- NOTE | 2019-07-10 05:27 | NUR ---
pt. continues to c/o penile pain 01/03 and medicated with ordered prn dilaudid.
[2019-07-10 06:00] LABS: HEMATOCRIT 39.9 % (39.0-50.0); HEMOGLOBIN 12.2 g/dl (14.0-18.0); MEAN CELL VOLUME 84.2 fL CALC (80.0-100.0); MEAN CORPUSCULAR HGB 25.7 pG CALC (26.0-32.0); MEAN CORPUSCULAR HGB CONC 30.6 g/dL CAL (32.0-36.0); RED BLOOD COUNT 4.74 mill/uL (4.70-6.10); RED CELL DISTRI WIDTH 14.1 % (11.5-15.5)
[2019-07-10 06:21] LABS: ALBUMIN 2.6 g/dL (3.2-5.0); ALKALINE PHOSPHATASE 106 u/l (38-126); ANION GAP 10 (6-22 (CALC)); BUN 22 mg/dL (9-20); BUN/CREATININE RATIO 20 (12-20 (CALC)); CARBON DIOXIDE 23 mmol/l (22-30); CHLORIDE 103 mmol/l (95-108); CREATININE 1.1 mg/dL (0.7-1.3); GFR > 60 ML/MIN (>=60 (CALC)); GFR FOR AFR.AMER. > 60 ML/MIN (>=60 (CALC)); POTASSIUM 4.8 mmol/l (3.5-5.1); SGOT/AST 23 u/l (17-59); SODIUM 131 mmol/l (137-146); TOTAL PROTEIN 4.9 g/dL (6.3-8.2)
[2019-07-10 06:25] LABS: BILIRUBIN, TOTAL 0.5 mg/dL (0.0-1.4)
--- NOTE | 2019-07-10 07:20 | NUR ---
CHANGE OF SHIFT REPORT RECEIVED FROM GREGORIO CARO
[2019-07-10 07:54] VITALS: BP 108/78
--- NOTE | 2019-07-10 08:15 | NUR ---
PT PRESENTS WITH PENIS ABSCESS. VANCOMYCIN ORDERED FOR PHARMACY TO DOSE. PT IS RECEIVING 1250MG IV Q8H. VANCOMYCIN TROUGH WAS DRAWN 30 MIN PRIOR TO 4TH DOSE ON 07/09 @ 0530. TROUGH = 15 MCG/ML. CONTINUE CURRENT DOSE. TROUGH WILL BE CHECKED 30 MIN PRIOR TO 4TH DOSE ON 07/10 @ 0530. PHARMACY WILL CONTINUE TO FOLLOW.
--- NOTE | 2019-07-10 11:00 | NUR ---
DR MCCOY IN TO SEE PT. DRESSING ON SCTROUM AND PENIS CAME OFF, [id number] TO HAVE A BM. SHE CAME TO CHANGE THE DRESSING , REMOVED PACKING, AND REPLACED WITH IODOFORM AFTER IRRIGATION WITH NS. COVERED WITH 4X4 AND ABD PAD. CINDY DRAIN INTACT. HAD SERO DRAINAGE NOTED. DR MCCOY SPOKE WITH PT RE: [id number] VAC TO ASSIST WITH HEALING.
--- NOTE | 2019-07-10 12:00 | NUR ---
PT RESTING COMFORTABLY IN MED. PRN PAINS MEDS ADMINISTERED NEEDED. CALL LIFHT WITHIN EASY REACH MARGARINE CHURN OPERATOR WILL CONNTINUE TO MONITOR
[2019-07-10 16:01] VITALS: BP 121/83
--- NOTE | 2019-07-10 16:35 | NUR ---
PAIN MED ADMINISTERED AT 1458PM FOR COMPLAINT OF 10/10 PAIN IN PENIS. PT STATES PAIN DOWN TO 4 AFTER 30 MINUTES. TECHNICAL RECRUITER EDUCATED PT ON REPORTING PAIN TIMELY WHEN PAIN IS STILL AT A MANAGEABLE LEVEL. CALL LIGHT WITHIN EASY REACH. TECHNICAL RECRUITER WILL CONTINUE TO MONIOTR
[2019-07-10 18:36] VITALS: BP 118/76
--- NOTE | 2019-07-10 19:35 | NUR ---
ASSESSMENT COMPLETED. IV SITE PATENT AND SL. NO DISTRESS NOTED; VOICES NO CONCERNS. PT. SLEEPY. UPDATED WITH POC; DRESSING WITH PACKING INTACT TO PENIS, SMALL AMOUNT OF DRAINAGE NOTED ALONG WITH PINROSE DRAIN IN PLACE. AVILES CATHETER IN PLACE AND DRAINING AT GRAVITY LEVEL. ENCOURAGED TO CALL FOR ANY NEEDS. CALL LIGHT IS IN REACH.
--- NOTE | 2019-07-10 22:48 | NUR ---
PT. C/O PENILE PAIN AND MEDICATED WITH ORDERED PRN PERCOCET; WILL REASSESS.
--- NOTE | 2019-07-11 00:22 | NUR ---
RESTING IN BED WITH EYES CLOSED; RESP. EVEN AND UNLABORED. NO DISTRESS NOTED; MARIKA LOVE. WILL CONTINUE TO MONITOR.
--- NOTE | 2019-07-11 02:44 | NUR ---
PT. C/O PENIS PAIN AND ACID RELUX, MEDICATED WITH ORDERED PRN DILAUDID AND MAALOX; WILL REASSESS. PT. THEN ASKS FOR A MEAL AND PROVIDED WITH A HEATED FROZEN DINNER. DENIES FURTHER NEEDS.
[2019-07-11 03:39] VITALS: BP 111/79
--- NOTE | 2019-07-11 03:45 | NUR ---
PRN INHALOR GIVEN PER REQUEST AND ORDER. DENIES FURTHER NEEDS.
--- NOTE | 2019-07-11 04:28 | NUR ---
PT. C/O PENIS PAIN AND MEDICATED WITH ORDERED PRN PERCOCET AND PO FLUIDS GIVEN. PROVIDED PT. WITH CATHETER CARE/PEDRO CARE AND NEW OVERLYING DRESSING APPLIED AND PACKING LEFT INTACT. PT. ASSISTED TO GET COMFORTABLE IN BED. ENCOURAGED TO CALL FOR ANY NEEDS. CALL LIGHT IS IN REACH.
[2019-07-11 05:56] LABS: HEMATOCRIT 37.6 % (39.0-50.0); HEMOGLOBIN 11.7 g/dl (14.0-18.0); MEAN CORPUSCULAR HGB 25.8 pG CALC (26.0-32.0); MEAN CORPUSCULAR HGB CONC 31.1 g/dL CAL (32.0-36.0); RED BLOOD COUNT 4.53 mill/uL (4.70-6.10); RED CELL DISTRI WIDTH 14.1 % (11.5-15.5)
[2019-07-11 06:14] LABS: ANION GAP 9 (6-22 (CALC)); BUN 21 mg/dL (9-20); BUN/CREATININE RATIO 21 (12-20 (CALC)); CARBON DIOXIDE 23 mmol/l (22-30); CHLORIDE 102 mmol/l (95-108); GFR > 60 ML/MIN (>=60 (CALC)); GFR FOR AFR.AMER. > 60 ML/MIN (>=60 (CALC)); POTASSIUM 4.9 mmol/l (3.5-5.1); SODIUM 130 mmol/l (137-146)
--- NOTE | 2019-07-11 09:30 | NUR ---
PERCOCET GIVEN FOR PT COMPLAINT OF PAIN IN PENIS. COMPUTER TEACHER WILL CONTIUE TO MONITOR.
--- NOTE | 2019-07-11 12:34 | NUR ---
CHANGE OF SHIFT REPORT RECEIVED FROM GREGORIO CARO. PT IS SEMI ROCHE POSITION. CALL LIGHT WITHIN EASY REACH, BED IN LOWEST POSITION
--- NOTE | 2019-07-11 12:37 | NUR ---
PT RESTING COMFORTABLY. PT STATES THAT HE IS COMFORTABLE. NO COMPLAINT OF PAIN OR DISCOMFORT. JD EDWARDS DEVELOPER WILL CONTINUE TO MONITOR.
--- NOTE | 2019-07-11 12:51 | NUR ---
Vancomycin ordered for pharmacy to dose. PT is a 59 yrs old male. Patient is diagnosed with Penis Abscess/wound. Abx: Zosyn IV 3.375gm Q6H Patient was receiving Vancomycin 1,250 mg IV Q8H with a target trough of 10-15 mcg/ml. Trough on 07/11/19: 18 mcg/mL. Allergies: NKDA Change Vancomycin dose to 1,250 mg IV Q12H. Draw trough 30 minutes prior to 4th dose on 07/12/19 at 1730. Pharmacy will continue to follow
[2019-07-11 16:05] VITALS: BP 126/86
--- NOTE | 2019-07-11 16:06 | NUR ---
PT RESTING COMFORTABLY. NO S/S OF AGITATION. PT IS ABLE TO MAKE NEEDS KNOWN. DEBONER WILL CONTINUE TO MONITOR
[2019-07-11 18:32] VITALS: BP 129/93
--- NOTE | 2019-07-11 19:10 | NUR ---
REPORT FROM ANU PERKINS. PT RESTING IN BED AT THIS TIME. NO APPARENT DISTRESS NOTED. DRESSING NOTED TO PERIAREA, NOTED WITH SEROUS DRAINAGE. AVILES IN PLACE, PATENT DRAINING TO GRAVITY. IV SITE APPEARS HEALTHY. CALL LIGHT WITHIN REACH. WILL CONTINUE TO MONITOR.
--- NOTE | 2019-07-11 21:14 | NUR ---
PT C/O SHARP PAIN TO GROIN AREA AFTER AMBULATING TO BATHROOM. DRESSING INTACT, WITH SEROUS DRAINAGE NOTED. PT MEDICATED WITH PRN IV DILAUDID AT THIS TIME. PEDRO/AVILES CARE PROVIDED. SNACK PROVIDED. PT DENIES ANY OTHER COMPLAINT AT THIS TIME. CALL LIGHT WITHIN REACH. WILL CONTINUE TO MONITOR.
--- NOTE | 2019-07-12 01:13 | NUR ---
PT RESTING IN BED WITH EYES CLOSED. NO APPARENT DISTRESS NOTED. CALL LIGHT WITHIN REACH. WILL CONTINUE TO MONITOR.
--- NOTE | 2019-07-12 03:54 | NUR ---
PT MEDICATED FOR PAIN 9-10 IN PERIAREA. DRESSING INTACT. AVILES REMAINS PATENT DRAINING TO GRAVITY, CLEAR YELLOW URINE NOTED. DIET COLA PROVIDED UPON REQUEST. CALL LIGHT WITHIN REACH. WILL CONTINUE TO MONITOR.
[2019-07-12 04:01] VITALS: BP 111/79
[2019-07-12 05:13] LABS: HEMATOCRIT 37.9 % (39.0-50.0); HEMOGLOBIN 11.6 g/dl (14.0-18.0); MEAN CELL VOLUME 83.3 fL CALC (80.0-100.0); MEAN CORPUSCULAR HGB 25.5 pG CALC (26.0-32.0); MEAN CORPUSCULAR HGB CONC 30.6 g/dL CAL (32.0-36.0); RED BLOOD COUNT 4.55 mill/uL (4.70-6.10); RED CELL DISTRI WIDTH 14.2 % (11.5-15.5)
[2019-07-12 05:38] LABS: ANION GAP 9 (6-22 (CALC)); BUN 15 mg/dL (9-20); BUN/CREATININE RATIO 16 (12-20 (CALC)); CHLORIDE 101 mmol/l (95-108); CREATININE 0.9 mg/dL (0.7-1.3); GFR > 60 ML/MIN (>=60 (CALC)); GFR FOR AFR.AMER. > 60 ML/MIN (>=60 (CALC)); POTASSIUM 4.5 mmol/l (3.5-5.1); SODIUM 133 mmol/l (137-146)
[2019-07-12 05:39] LABS: CARBON DIOXIDE 28 mmol/l (22-30)
[2019-07-12 08:00] VITALS: BP 125/85
--- NOTE | 2019-07-12 09:00 | NUR ---
PT IS AWAKE, ALERT, ORIENTED X 3. PT WITH RECENT PENILE SURGERY, SEEN WITH DRESSING TO AREA, AVILES CATHETER IN PLACE. PT ABLE TO AMBULATE WITH SOMEWHAT STEADY GAIT TO BR NEEDED. PT MEDICATED FOR PAIN NEEDED.
--- NOTE | 2019-07-12 13:00 | NUR ---
PT SEEN BY DR SANDEEP MCCOY TODAY, CHANGES DRESSING. PT THEN AMBULATED TO BE WITH STANDBY ASSIST, HAD BM. PT WITH SCROTAL EDEMA NOTED, TOWEL PLACED TO ELEVATE. PT ENCOURAGED TO LESSEN HIS PO INTAKE PER SWELLING, THE GIVING OF LASIX.
[2019-07-12 16:00] VITALS: BP 137/89
--- NOTE | 2019-07-12 19:00 | NUR ---
REPORT FROM KEVIN PERKINS. PT RESTING IN BED AT THIS TIME. NO APPARENT DISTRESS NOTED. DRESSING NOTED TO PERIAREA, NOTED WITH SEROUS DRAINAGE. AVILES IN PLACE, PATENT DRAINING TO GRAVITY. PT C/O DISCOMFORT AT IV SITE, NO REDNESS OR SWELLING NOTED, WILL ATTEMPT TO START NEW ONE. CALL LIGHT WITHIN REACH. WILL CONTINUE TO MONITOR.
[2019-07-12 19:35] VITALS: BP 130/87
--- NOTE | 2019-07-13 00:40 | NUR ---
ASSISTED PT UP TO SIDE OF BED. PT STOOD UP WITH MINIMAL ASSIST. LINENS CHANGED AT THIS TIME UPON REQUEST. PT REPOSITIONED IN BED. AVILES CARE PROVIDED. PT ASSISTED BACK INTO BED. REPOSITIONED SELF WITH PILLOWS, SCROTUM ELEVATED ON TOWEL. DRESSING REMAINS CDI. AVILES BAG EMPTIED. PT MEDICATED FOR PAIN 01/03. CALL LIGHT WITHIN REACH, WILL CONTINUE TO MONITOR.
--- NOTE | 2019-07-13 04:26 | NUR ---
PT RESTING IN BED WITH EYES CLOSED. NO APPARENT DISTRESS NOTED. CALL LIGHT WITHIN REACH. WILL CONTINUE TO MONITOR.
[2019-07-13 04:35] VITALS: BP 125/78
[2019-07-13 08:00] VITALS: BP 124/81
--- NOTE | 2019-07-13 09:00 | NUR ---
PT AWAKE, ALERT, ORIENTED X 3. PT MEDICATED FOR PAIN RELIEF EARLY THIS MORNING. DRESSINGS FROM PENILE SURGERY WITH MODERATE DRAINAGE.
--- NOTE | 2019-07-13 13:00 | NUR ---
PT CONTINUES AT REST IN THE BED, NO DISTRESS. PT OCCASIONALLY CALLS FOR PAIN MEDICINE. PT IS AMBULATORY TO BR, FEELS LIKE BM COMING.
--- NOTE | 2019-07-13 14:26 | NUR ---
S: GUERDA GEORGES is a 59 M who presents with PENIS ABSCESS. He has a history of MRSA . All medications in patient's chart were reviewed. O: VS: BP 124/81 , P 100, RR 20,T 97.3 W 103kg, HT 70IN, Scr=0.9 , A: WOUND GROWING MRSA P: Patient is on VANCOMYCIN. Vancomycin ordered for pharmacy to dose. CONTINUE Vancomycin 1250MG IV Q12H. Vancomycin trough is drawn before the 4th dose on 07/15/19 0530. Vancomycin goal trough is between <10-15 mcg/ml>. Pharmacy will follow and or advise on antibiotics use as needed. IRVIN BOATENG PHARMD
--- NOTE | 2019-07-13 15:23 | NUR ---
DRESSING HAS BEEN CHANGED TO PENIS AREA WHERE SURGERY WAS PERFORMED TO REMOVE ABSCESSES. PT TOLERATED WELL.
[2019-07-13 16:00] VITALS: BP 169/85
--- NOTE | 2019-07-13 18:00 | NUR ---
PT AT REST IN THE BED, NO DISTRESS, NO RECENT NEED FOR PAIN MEDS.
[2019-07-13 18:45] VITALS: BP 119/80
--- NOTE | 2019-07-13 19:20 | NUR ---
REPORT FROM KEVIN PERKINS. PT RESTING IN BED AT THIS TIME. NO APPARENT DISTRESS NOTED. DRESSING NOTED TO PERIAREA, CDI. AVILES IN PLACE, PATENT DRAINING TO GRAVITY. IV SITE APPEARS HEALTHY. CALL LIGHT WITHIN REACH. WILL CONTINUE TO MONITOR.
--- NOTE | 2019-07-13 21:25 | NUR ---
PT MEDICATED FOR PAIN IN GROIN AREA 01/03 WITH PO PERCOCET. SNACKS PROVIDED UPON REQUEST. PT DENIES ANY OTHER WANTS OR NEEDS. CALL LIGHT WITHIN REACH. WILL CONTINUE TO MONITOR.
[2019-07-14 00:20] VITALS: BP 137/87
--- NOTE | 2019-07-14 01:51 | NUR ---
PT MEDICATED FOR PAIN 01/03. NO APPARENT DISTRESS NOTED. STEFAN REMAINS PATENT. CALL LIGHT WITHIN REACH. WILL CONTINUE TO MONITOR.
[2019-07-14 03:35] VITALS: BP 136/90
--- NOTE | 2019-07-14 03:59 | NUR ---
PT RESTING IN BED WITH EYES CLOSED. NO APPARENT DISTRESS NOTED. CALL LIGHT WITHIN REACH. WILL CONTINUE TO MONITOR.
[2019-07-14 05:11] LABS: HEMATOCRIT 37.3 % (39.0-50.0); HEMOGLOBIN 11.6 g/dl (14.0-18.0); IMMATURE GRANULOCYTES 0.8 % (0.0-5.0); MEAN CELL VOLUME 83.3 fL CALC (80.0-100.0); MEAN CORPUSCULAR HGB 25.9 pG CALC (26.0-32.0); MEAN CORPUSCULAR HGB CONC 31.1 g/dL CAL (32.0-36.0); NEUT# 6.35 thou/uL (1.82-7.42); RED BLOOD COUNT 4.48 mill/uL (4.70-6.10); RED CELL DISTRI WIDTH 14.6 % (11.5-15.5)
[2019-07-14 05:24] LABS: ALBUMIN 2.6 g/dL (3.2-5.0); ALKALINE PHOSPHATASE 96 u/l (38-126); ANION GAP 9 (6-22 (CALC)); BILIRUBIN, TOTAL 0.4 mg/dL (0.0-1.4); BUN 13 mg/dL (9-20); BUN/CREATININE RATIO 17 (12-20 (CALC)); CARBON DIOXIDE 32 mmol/l (22-30); CHLORIDE 99 mmol/l (95-108); CREATININE 0.8 mg/dL (0.7-1.3); GFR > 60 ML/MIN (>=60 (CALC)); GFR FOR AFR.AMER. > 60 ML/MIN (>=60 (CALC)); SGOT/AST 18 u/l (17-59); SODIUM 137 mmol/l (137-146); TOTAL PROTEIN 5.2 g/dL (6.3-8.2)
[2019-07-14 07:42] VITALS: BP 122/84
--- NOTE | 2019-07-14 09:00 | NUR ---
PT CONTINUES AWAKE, ALERT, RESTS IN THE BED. DRESSING TO PENILE AREA SHOWS CONTINUED DRAINAGE TO AREA. PAIN LEVEL TOLERABLE WHEN NOT MOVING AROUND MUCH.
--- NOTE | 2019-07-14 12:26 | NUR ---
PT MEDICATED FOR PAIN NEEDED. SITE REMAINS FREE OF INFECTION, DRESSING CHANGE COMING THIS AFTERNOON. ANTICIPATE DR MCCOY TO PLACE WOUND VAC TOMORROW.
[2019-07-14 15:15] VITALS: BP 137/68
--- NOTE | 2019-07-14 18:10 | NUR ---
DRESSING CHANGED TO PENIS AREA, PT TOLERATED WITH SOME MINOR DISCOMFORT. LESS DRAINAGE SEEN TO ABDs.
[2019-07-14 19:11] VITALS: BP 120/88
--- NOTE | 2019-07-14 23:40 | NUR ---
PT RESTING IN BED WITH EYES CLOSED. NO APPARENT DISTRESS NOTED. CALL LIGHT WITHIN REACH. WILL CONTINUE TO MONITOR.
--- NOTE | 2019-07-15 03:52 | NUR ---
PT RESTING IN BED WITH EYES CLOSED. NO APPARENT DISTRESS NOTED. CALL LIGHT WITHIN REACH. WILL CONTINUE TO MONITOR.
[2019-07-15 04:45] VITALS: BP 126/86
--- NOTE | 2019-07-15 07:20 | NUR ---
CHANGE OF SHIFT REPORT RECEIVED FROM GRACE TEJEDA. PT IS ABLE TO MAKE HIS NEEDS KNOWN. CALL LIGHT WITHIN EASY REACH. COTTON BROKER WILL CONTINUE TO MONITOR
--- NOTE | 2019-07-15 07:58 | NUR ---
VANCOMYCIN ORDERED FOR PHARMACY TO DOSE. PT IS RECEIVING VANCOMYIN 1250MG IV Q12H @ 0600 AND 1800 FOR PENIS ABSCESS + FOR MRSA. GOAL TROUGH = 10-15 MCG/ML. TROUGH OBTAINED 07/14 @ 0530 = 13 MCG/ML. CONTINUE CURRENT REGIMEN. RE-CHECK TROUGH 07/16 @ 0530. PHARMACY WILL CONTINUE TO FOLLOW.
[2019-07-15 08:00] VITALS: BP 125/94
--- NOTE | 2019-07-15 10:00 | NUR ---
PHONE CALL RECEIVED FROM DR GARCIA, UROLOGIST STATING THAT AVILES BE DISCONTINED AND DRAINS REMOVE. ROUSTABOUT SUPERVISOR NOTIFIED DR MCCOY WHO STATES THAT SHE WILL TAKE OUT THE DRAIN HERSELF. ROUSTABOUT SUPERVISOR NOTIFIED PT OF ORDERS. PT VERBALIZED UNDERSTANDING. AVILES D/C WITHOUT ANY COMPLICATIONS. CATHETER TIP INTACT. ROUSTABOUT SUPERVISOR WILL CONTINUE TO MONITOR
--- NOTE | 2019-07-15 12:00 | NUR ---
PT ABLE TO AMBULATE TO BATHROOM WITH STANDBY ASSIST. PT IS ABLE TO MAKE NEEDS KNOWN. POC REVIEWED WITH PT. PT IS ABLE TO MAKE NEEDS KNOWN. DIRECTOR OF BUSINESS CONTINUITY WILL CONTINUE TO MONITOR
[2019-07-15 15:27] VITALS: BP 127/89
--- NOTE | 2019-07-15 16:28 | NUR ---
PT RESTING COMFORTABLY IN ROOM. PT IS ABLE TO MAKE HIS NEEDS KNOWN. POC REVIEWED WITH PT. CALL LIGHT WITHIN EASY REACH, BED IN LOWEST POSITION. PRECISION INSTRUMENT MAKER AND REPAIRER WILL CONTINUE TO MONITOR
[2019-07-15 18:35] VITALS: BP 126/88
--- NOTE | 2019-07-15 19:44 | NUR ---
PT SITTING IN BED WATCHING TV A&O X3. NO DISTRESS NOTED. WOUND PACKING IN PLACE WITH ABD PAD SECURING THE TOP OF THE PENIS. NO SHADOWING PRESENT. PITTING EDEMA +2 NOTED TO THE BLE. PER PT HE STATES THAT IT HAS IMPROVED SINCE YESTERDAY. NO OTHER NEEDS AT THIS TIME. ASSESSMENT COMPLETED. CALL LIGHT IN REACH. CONTINUE TO MONITOR.
--- NOTE | 2019-07-15 23:08 | NUR ---
PT SLEEPING IN BED. NO DISTRESS NOTED. CONTINUE TO MONITOR.
[2019-07-16 03:43] VITALS: BP 115/75
[2019-07-16 05:12] LABS: HEMATOCRIT 34.8 % (39.0-50.0); HEMOGLOBIN 10.6 g/dl (14.0-18.0); IMMATURE GRANULOCYTES 0.4 % (0.0-5.0); MEAN CELL VOLUME 83.5 fL CALC (80.0-100.0); MEAN CORPUSCULAR HGB 25.4 pG CALC (26.0-32.0); MEAN CORPUSCULAR HGB CONC 30.5 g/dL CAL (32.0-36.0); NEUT# 5.94 thou/uL (1.82-7.42); RED BLOOD COUNT 4.17 mill/uL (4.70-6.10); RED CELL DISTRI WIDTH 14.7 % (11.5-15.5)
[2019-07-16 05:28] LABS: ANION GAP 7 (6-22 (CALC)); BUN 11 mg/dL (9-20); BUN/CREATININE RATIO 12 (12-20 (CALC)); CARBON DIOXIDE 35 mmol/l (22-30); CHLORIDE 99 mmol/l (95-108); CREATININE 0.9 mg/dL (0.7-1.3); GFR > 60 ML/MIN (>=60 (CALC)); GFR FOR AFR.AMER. > 60 ML/MIN (>=60 (CALC)); POTASSIUM 4.1 mmol/l (3.5-5.1); SODIUM 136 mmol/l (137-146)
--- NOTE | 2019-07-16 07:30 | NUR ---
CHANGE OF SHIFT REPORT RECEIVED FROM GREGORIO RAMOS. PT IS ABLE TO MAKE HIS NEEDS KNOWN. PT STATES THAT HE DOES NOT FEEL READY FOR DISCHARGE HOME BECAUSE HE CANNOT DO HIS OWN WOUND CARE. PT REMINDED THAT HE WILL BE DISCHARGED WITH HOME HEALTH CARE. PT NOT RECEPTIVE TO THIS. DOG HANDLER OR TRAINER WILL CONTINUE TO EDUCATE
[2019-07-16 08:10] VITALS: BP 133/88
--- NOTE | 2019-07-16 08:40 | NUR ---
PT REFUSED ADVAIR. EDUCATION PROVIDED TO PT ON THE USE OF ADVAIR FOR TREATING WHEEZING AND SHORTNESS OF BREATH. PT EDUCATED ON IMPORTANCE OF TAKING THIS MEDS PER ORDER. PT DENIES ANY ADVERSE EFFECT TO THIS MEDS, BUT STILL REFUSES TO TAKE IT. DEPARTURE CLERK WILL CONTINUE TO EDUCATE.
--- NOTE | 2019-07-16 11:05 | NUR ---
DOCTOR MCCOY HERE TO SEE PT. PT EDUCATED ON POC; DISCHARGE PLANING. PT IS MORE RECEPTIVE AT THIS TIME. PT COMPLAIN OF SHORTNESS OF BREATH TODAY DURING AMBULATION TO BATHROOM. PT EDUCATED ON USE OF ADVAIR AND VENTOLIN FOR SHORTNESS OF BREATH. PT VERBALIZED UNDERSTANDING.
--- NOTE | 2019-07-16 12:00 | NUR ---
WOUND CARE TO PERIAREA DONE. DRESSING APPLIED PER ORDER
[2019-07-16 15:26] VITALS: BP 124/88
--- NOTE | 2019-07-16 15:32 | NUR ---
PT note Patient is seen for functional assessment He has a wound vac in place but is able to manage movement although it is painful. His transfers and bed mobility are done without assist and he is able to ambulate in room I discussed and demonstrated managing the VAC while moving and walking He should do well with outpatient follow up for wound care
--- NOTE | 2019-07-16 16:00 | NUR ---
PT HAS WOUND VAC AT 100MMHG CONTINOUS ATTACHED TO WOUND ON PENIS. PT TOLERATING WOUND VAC. VENDOR ANALYST WILL CONTINUE TO MONITOR
--- NOTE | 2019-07-16 19:00 | NUR ---
REPORT RECEIVED FROM Kavya CURRIE RN, CARE OF PT ASSUMED AT THIS TIME.
[2019-07-16 19:01] VITALS: BP 127/80
--- NOTE | 2019-07-16 19:45 | NUR ---
PHYSICAL ASSESMENT COMPLETE. VS TAKEN BY GUILLE @ 1901 ASSESED. PLAN OF CARE REVIEWED W/ PT. VERBALIZES UNDERSTANDING AND DENIES QUESTIONS. PT RESTING IN BED WATCHING TV. PT DENIES NEEDS @ THIS TIME. CALL CUELLO WITHIN REACH, AGREES TO CALL PRN. ITEMS WITHIN REACH. BED LOCKED IN LOW POSITION W/ BEDRAILS UP X2.
--- NOTE | 2019-07-16 20:15 | NUR ---
TELEMETRY READINGS PROVIDED BY ED SHIRT FINISHER FOR 1999
--- NOTE | 2019-07-16 20:50 | NUR ---
PT SITTING UP IN BED EATING FROM MEAL TRAY. REQUESTS CRANBERRY JUICE, 2 JUICE CUPS PROVIDED. PTS HS ACCUCHECK IS 91 dl/mg.
--- NOTE | 2019-07-17 00:44 | NUR ---
PT SLEEPING, APPEARS COMFORTABLE AND IN NO DISTRESS. RESPIRATIONS REGULAR AND UNLABORED. CALL CUELLO REMAINS WITHIN REACH, ITEMS REMAIN WITHIN REACH. BED REMAINS LOCKED IN LOW POSITION W/ BEDRAILS UP X2.
--- NOTE | 2019-07-17 01:45 | NUR ---
WOUND VAC ALARMING DUE TO LEAK, ATTEMPTED TO REINFORCE WITHOUT SUCCESS. Cori ESTEBAN PRESENT TO PERFORM WOUND CARE, ASSISSTED Hortensia ESTEBAN LPN IN WOUND CARE. WOUND VAC DRAPE REMOVED, SPONGE DRESSINGS LEFT IN PLACE. SURGICAL CLIPPERS USED TO CLIP DOWN PUBIC HAIR. AREA CLEANSED AND DRIED. DUODERM CUT TO BORDER WOUNDS. BLACK SPONGE BRIDGE USED OVER DRAPE TO CONNECT BOTH WOUNDS. DRAPE SECURED OVER TOP. SUCTION REAPPLIED AT 100mmHg. NO LEAK DETECTED. SEE MAR FOR PREMEDICATION W/ DILAUDID 1MG IV.
[2019-07-17 04:08] VITALS: BP 116/73
--- NOTE | 2019-07-17 04:20 | NUR ---
PT SLEEPING, APPEARS COMFORTABLE AND IN NO DISTRESS. RESPIRATIONS REGULAR AND UNLABORED. VS TAKEN BY GUILLE @ 0403 ASSESED. CALL CUELLO REMAINS WITHIN REACH, ITEMS REMAIN WITHIN REACH. BED REMAINS LOCKED IN LOW POSITION W/ BEDRAILS UP X2.
--- NOTE | 2019-07-17 05:25 | NUR ---
NATURAL FOODS CLERK WILIAN HERNANDEZ PT'S VANCO TROUGH LEVEL AT THIS TIME.
--- NOTE | 2019-07-17 06:27 | NUR ---
MELANIO TROUGH 11, VANCO GIVEN. SEE MAY.
--- NOTE | 2019-07-17 07:05 | NUR ---
REPORT RECEIVED FROM DAYDAYRN;PT RESTING IN SEMI FOWLERS POSITION;INTRODUCED SELF TO PT AND POC DISCUSSED;RESPIRATIONS EVEN AND UNLABORED ON RA;PT DENIES ANY CURRENT PAIN OR NEEDS;WOUND VAC PATENT;IV ABX INFUSING WITH EASE PER ORDER;ALL SAFETY PRECAUTIONS IN PLACE WITH BED IN THE LOWEST POSITION AND CALL LIGHT IN REACH;WILL CONTINUE TO MONITOR
--- NOTE | 2019-07-17 08:05 | NUR ---
PT RESTING IN SEMI FOWLERS POSITION,A&O X3;VS OBTAINED AND ASSESSMENT COMPLETED;PT DENIES ANY CURRENT PAIN OR DISCOMFORTS,PAIN SCALE AND REPORTING EDUCATED;RESPIRATIONS EVEN AND UNLABORED ON RA,CLEAR/DIMINISHED LUNG SOUNDS NOTED;ABDOMEN SOFT ON PALPATION AND ACTIVE IN ALL 4 QUADRANTS;WOUND VAC PATENT RUNNING WITH EASE TO PENILE SHAFT AREA AT 100MMHG;STRONG PEDAL PULSES;322G TO RFA INFUSING ABX WITH EASE PER ORDER,SITE APPEARS HEALTHY;ACCUCHECK 150;PT DENIES ANY ADDITIONAL NEEDS AT THIS TIME AND IS ENCOURAGED TO CALL FOR ASSISTANCE IF NEEDED;CALL LIGHT IN REACH;WILL CONTINUE TO MONITOR
[2019-07-17 08:07] VITALS: BP 110/68
[2019-07-17 08:15] VITALS: BP 110/68
--- NOTE | 2019-07-17 09:04 | NUR ---
AT BEDSIDE DISCUSSING POC WITH PT.
[2019-07-17] MEDS ORDERED: DOXYCYCL HYC100 MG PO (09:08)
[2019-07-17] MEDS ORDERED: MEDDOSEPAK PO (09:10)
[2019-07-17] MEDS ORDERED: LORTAB5 PO (09:10)
[2019-07-17] MEDS ORDERED: LINEZOLID600 MG PO (09:25)
--- NOTE | 2019-07-17 09:40 | NUR ---
ALL DISCHARGE INSTRUCTIONS PROVIDED AT THIS TIME;RX FOR LORTAB PROVIDED AND PT INSTRUCTED TO [facility] RX FOR ABX AND STEROID AT [facility];PT ALSO INSTRUCTED TO F/U WITH WOUND CARE AND ;PT VERBALIZES UNDERSTANDING AND DENIES ANY ADDITIONAL NEEDS AT THIS TIME;IV SITE REMOVED WITH CATHETER INTACT;PT DENIES ANY ADDITIONAL NEEDS AT THIS TIME AND IS ENCOURAGED TO CALL FOR ASSISTANCE IF NEEDED;WHEELCHAIR TO BE PROVIDED FOR DISCHARGE HOME;AWAITING FAMILY FOR DISCHARGE HOME;WILL CONTINUE TO MONITOR
--- NOTE | 2019-07-17 11:35 | NUR ---
PT RESTING ON COMMODE REPORTING PENILE PAIN RATING 9/10 ON THE PAIN SCALE AND REQUESTING PAIN MEDICATION,PT MEDICATED WITH PRN PERCOCET 10/325MG PO AT THIS TIME;RESPIRATIONS EVEN AND UNLABORED ON RA;ACCUCHECK 202,PT COVERED WITH SLIDING SCALE NOVOLOG PER ORDER;WOUND VAC PATENT;PT DENIES ANY ADDITIONAL NEEDS AT THIS TIME AND IS ENCOURAGED TO CALL FOR ASSISTANCE IF NEEDED;AWAITING TRANSPORTATION HOME;WILL CONTINUE TO MONITOR
--- NOTE | 2019-07-17 12:12 | NUR ---
Discharge instructions given. Patient verbalizes understanding of same. Discharged in stable condition via Wheelchair to Home with family. All belongings sent with pt. PT TRANSPORTED TO [facility] IN STABLE CONDITION VIA WHEELCHAIR ACCOMPANIED BY GUILLE QUEVEDO FOR D/C HOME.FAMILY TO TRANSPORT PT HOME.
== END 2019-07-17 12:12 | DRG 264 ==
LOC: ED 09:15 → ED-I 11:50 → ED 12:23 → MS2 12:24
PROVIDERS: Family Medicine; Nurse Practitioner Family; Surgery; Urology; ADMIT Internal Medicine; ATTEND Internal Medicine
PROC: 0V9S0ZZ Drainage of Penis, Open Approach (ICD-10-PCS; principal; 2019-07-08)
PROC: 0JB80ZZ Excision of Abdomen Subcutaneous Tissue and Fascia, Open Approach (ICD-10-PCS; 2019-07-08)
PROC: 0VBS0ZZ Excision of Penis, Open Approach (ICD-10-PCS; 2019-07-08)
PROC: 0T7D8ZZ Dilation of Urethra, Via Natural or Artificial Opening Endoscopic (ICD-10-PCS; 2019-07-08)
PROC: 0T9B80Z Drainage of Bladder with Drainage Device, Via Natural or Artificial Opening Endoscopic (ICD-10-PCS; 2019-07-08)
PROC: 2W17X6Z Compression of Left Inguinal Region using Pressure Dressing (ICD-10-PCS; 2019-07-16)
DX: E11.52 Type 2 diabetes mellitus with diabetic peripheral angiopathy with gangrene (principal); N49.3 Fournier gangrene; N35.919 Unspecified urethral stricture, male, unspecified site; E11.65 Type 2 diabetes mellitus with hyperglycemia; I11.0 Hypertensive heart disease with heart failure; I50.9 Heart failure, unspecified; J43.9 Emphysema, unspecified; E78.5 Hyperlipidemia, unspecified; I48.0 Paroxysmal atrial fibrillation; F14.10 Cocaine abuse, uncomplicated; F17.200 Nicotine dependence, unspecified, uncomplicated; R60.0 Localized edema; B95.62 Methicillin resistant Staphylococcus aureus infection as the cause of diseases classified elsewhere; Z79.84 Long term (current) use of oral hypoglycemic drugs; Z79.01 Long term (current) use of anticoagulants; Z11.59 Encounter for screening for other viral diseases
CPT/HCPCS: C1769; J0131; J2710; J3370; Q3014; Q9967

== ENCOUNTER 2019-07-19 14:38 | Inpatient (IN) | payer MEDICAID ==
[~2019-07-19] VITALS: Ht 177.8 cm; Wt 108.4 kg
[~2019-07-19 14:38] MED LIST changes: +LINEZOLID600 MG PO; +LORTAB5 PO
--- NOTE | 2019-07-19 14:38 | NUR ---
PT TO ROOM VIA WC
--- NOTE | 2019-07-19 15:00 | NUR ---
Pt refused Covid 19 and Flu swab. Refusal to consent to treatment signed per GREGORIO Altman
--- NOTE | 2019-07-19 15:00 | NUR ---
DR BOUCHER AT BEDSIDE FOR ASSESSMENT
--- NOTE | 2019-07-19 15:13 | NUR ---
PT MEDICATED AT THIS TIME FOR PAIN TO BUTTOCK; ADVISED OF CONTINUED WAIT TIME;
[2019-07-19 15:35] LABS: HEMATOCRIT 35.4 % (39.0-50.0); HEMOGLOBIN 10.9 g/dl (14.0-18.0); IMMATURE GRANULOCYTES 0.7 % (0.0-5.0); MEAN CELL VOLUME 83.3 fL CALC (80.0-100.0); MEAN CORPUSCULAR HGB 25.6 pG CALC (26.0-32.0); MEAN CORPUSCULAR HGB CONC 30.8 g/dL CAL (32.0-36.0); NEUT# 15.92 thou/uL (1.82-7.42); RED BLOOD COUNT 4.25 mill/uL (4.70-6.10); RED CELL DISTRI WIDTH 14.9 % (11.5-15.5)
[2019-07-19 16:03] LABS: ANION GAP 12 (6-22 (CALC)); BUN 12 mg/dL (9-20); BUN/CREATININE RATIO 12 (12-20 (CALC)); CARBON DIOXIDE 30 mmol/l (22-30); CHLORIDE 95 mmol/l (95-108); GFR > 60 ML/MIN (>=60 (CALC)); GFR FOR AFR.AMER. > 60 ML/MIN (>=60 (CALC)); LIPASE 36 u/l (23-300); POTASSIUM 4.3 mmol/l (3.5-5.1); SODIUM 133 mmol/l (137-146); TOTAL PROTEIN 6.2 g/dL (6.3-8.2)
[2019-07-19 16:14] LABS: ALKALINE PHOSPHATASE 183 u/l (38-126); BILIRUBIN, TOTAL 1.2 mg/dL (0.0-1.4); C-REACTIVE PROTEIN 16.9 mg/dL (0-0.9); SGOT/AST 36 u/l (17-59)
--- NOTE | 2019-07-19 16:55 | NUR ---
PT RECIEVING BREATHING TX AT THIS TIME FOR SOB; O2 SAT 96%ON RA; MONITORING DEVICES IN PLACE; VSS; WILL CONTINUE TO MONITOR
--- NOTE | 2019-07-19 18:18 | NUR ---
DR RANKIN AT BEDSIDE
--- NOTE | 2019-07-19 18:56 | NUR ---
TELEPHONE REPORT RECEIVED FROM Tanner DE LA ROSA RN.
[2019-07-19 19:12] LABS: BARBITURATES NEGATIVE (NEGATIVE); COCAINE NEGATIVE (NEGATIVE); METHADONE NEGATIVE (NEGATIVE); OXCYCODONE POSITIVE (NEGATIVE); TETRAHYDROCANNABIONOL NEGATIVE (NEGATIVE); TRICYLIC ANTIDEPRESSANTS NEGATIVE (NEGATIVE)
--- NOTE | 2019-07-19 19:38 | NUR ---
PT TRANSPORTED TO [facility] 290
--- NOTE | 2019-07-19 19:43 | NUR ---
PT UP TO UNIT VIA STRETCHER, ACCOMPANIED BY NURSE. ADMITTED TO ROOM 290. ORIENTED TO UNIT, ROOM, BED, TV, LIGHTS AND CALL CUELLO.
[2019-07-19 19:50] VITALS: BP 100/77
--- NOTE | 2019-07-19 21:45 | NUR ---
VS TAKEN BY AUDITING CODER @ 1950 ASSESED, TELEMETRY READING BY ED JACQUARD FIXER @ 1999 ASSESED. PHYSICAL ASSESMENT COMPLETE. PLAN OF CARE REVIEWED. PT VERBALIZES UNDERSTANDING/ DENIES QUESTIONS. PT DENIES NEEDS @ THIS TIME. CALL CUATE VIZCAINO. AGREES TO CALL PRN. BED LOCKED IN LOW POSITION W/ TOP BEDRAILS UP X2. ITEMS WITHIN REACH.
[2019-07-19 23:45] VITALS: BP 96/78
[2019-07-20] VITALS (22 sets, daily range): BP systolic 65–115; BP diastolic 34–85
--- NOTE | 2019-07-20 00:30 | NUR ---
VS TAKEN BY LEVELER HELPER @ 9455 ASSESSED. TELEMETRY READING FROM ED WOOL SHEARING SUPERVISOR @ ELVIS SONI. PT APPEARS TO BE SLEEPING COMFORTABLY, NO APPARENT DISTRESS, RESPIRATIONS REGULAR AND UNLABORED. CALL CUELLO REMAINS WITHIN REACH, ITEMS REMAIN WITHIN REACH, BED REMAINS LOCKED IN LOW POSITION W/ BEDRAILS UP X2.
--- NOTE | 2019-07-20 04:15 | NUR ---
PICTURE TAKEN OF WOUND. OPEN WOUNDS TO DORSAL PENIS SHAFT AT BASE AND AND R SIDE PUBIC AREA, DRY GAUZE PACKING REMOVED. ONE FLUFFED SALINE DAMPENED 2X2 GUAZE GENTLY PACKED INTO PUBIC WOUND. TWO FLUFFED SALINE DAMPENED 2X2 GAUZE GENTLY PACKED TO PENILE WOUND. FOLDED 4X4's PLACED ON TOP AND SECURED W/ PAPER TAPE. PT TOLERATED DRESSING CHANGE W/ MINIMAL DISCOMFORT.
--- NOTE | 2019-07-20 08:28 | NUR ---
PT LAYING IN BED. A&O X3. PT EXPRESSED BUTTOCKS DISCOMFORT. PILLOW PLACED TO HELP RELIEVE THE PAIN. PT EXPRESSES SOME ANXIETY AND STRESS IN REGARDS TO THE POSSIBLE PROCEDURE THAT SHOULD BE TAKING PLACE, ENFORCED NPO STATUS. WHEN PT ASKED ABOUT WOUND VAC THAT SHOULD HAVE IN PLACE SINCE HIS LAST D/C PER PT HE STATES THAT IT IS IN THE COUNTER AND BROUGHT IT WITH HIM BECAUSE "SHE TOLD" HIM TO. PT DID NOT CLARIFY IF HE HAD THE WOUND VAC ON PRIOR TO ADMISSION. NO OTHER NEEDS AT THIS TIME. ASSESSMENT COMPLETED. DISCUSSED POC. CALL LIGHT IN REACH. CONTINUE TO MONITOR.
--- NOTE | 2019-07-20 09:39 | NUR ---
PT MOVED OUT OF ISOLATION ROOM AND INTO ROOM 278. PT IGM AND IGG FOR COVID HAVE BEEN NEGATIVE AND PT HAS REFUSED NASAL SWAB BUT HAS HAD IT DONE AND CONFIRMED NEGATIVE DURING ONE OF HIS LAST ADMISSIONS. EXPLAINED TO PT THAT DOOR MUST REMAIN SHUT AT ALL TIMES WHILE HE IS IN A REGULAR ROOM. PT VERBALIZED UNDERSTANDING.
--- NOTE | 2019-07-20 09:54 | NUR ---
OR CONSAENT OBTAINED FROM PT, PT VERBALIZED UNDERSTANDING
[2019-07-20 10:13] LABS: URINE BILIRUBIN - DIPSTICK NEGATIVE (NEGATIVE); URINE BLOOD DIPSTICK TRACE-INTACT (NEGATIVE); URINE COLOR YELLOW; URINE GLUCOSE - DIPSTICK 100 mg/dL (NEGATIVE); URINE KETONE NEGATIVE (NEGATIVE); URINE LEUK ESTERASE NEGATIVE (NEGATIVE); URINE NITRITE - DIPSTICK NEGATIVE (Negative); URINE PH 5.5 (4.5-8.0); URINE PROTEIN - DIPSTICK 30 mg/dL (NEG-TRACE)
--- NOTE | 2019-07-20 10:26 | NUR ---
KETAN FROM OR AT BESIDE TO TAKE PT TO OR VIA STRETCHER. PT IN STABLE CONDITION
[2019-07-20 10:29] LABS: URINE AMORPH SEDIMENT MANY hpf (NONE-FER); URINE SQUAMOUS EPITHELIAL CELL FEW EPI/hpf (0-FEW)
--- NOTE | 2019-07-20 13:14 | NUR ---
PT ARRIVED FROM THE OR VIA STRETCHER
--- NOTE | 2019-07-20 13:26 | NUR ---
KAYCEE ISAACS NOTIFIED ABOUT LOW BP 65/34. PER FERNY GIVE 500 ML BOLUS AND RECHECK BP.
--- NOTE | 2019-07-20 13:28 | NUR ---
IV BOLUS OF 500 ML INITITATED. PT PLACED IN [place] POSITION.
--- NOTE | 2019-07-20 14:02 | NUR ---
FERNY BENOIT NOTIFIED OF BP AFTER 500 ML BOLUS. BP 79/63, PER FERNY GIVE THE REMAINING 500 ML A BOLUS
--- NOTE | 2019-07-20 14:41 | NUR ---
DR ALMEIDA NOTIFIED OF PTS BP 79/66 AFTER 1L OF FLUID THAT WAS INFUSED. PER MD, TRANSFER PT TO ICU AND GIVE 2L BOLUS. PT MADE AWARE OF PT REFUSING TO GET NASAL SWAB TEST FOR COVID, PER MD PT SHOULD GET SWABBED. ORDERS REPEATED BACK TO MD IN REGARDS TO THE TRANSFER AND BOLUS. ORDER FAXED TO PHARMACY. PT TO BE PLACED IN ICU BED 3 PER SANTOS.
--- NOTE | 2019-07-20 15:55 | NUR ---
PT ARRIVED TO ICU BED 3 VIA BED ACCOMPANIED BY MED SURG NURSE. PT ALERT AND ORIENTED X3. PT REFUSING COVID-19 SWAB AT THIS TIME. #20 ESTABLISHED LFA. HGB OBTAINED AT THIS TIME. 2L BOLUS STARTED PER MD ORDERS. RESP ARE EVNE AND UNLABORED. ORIENTED PT TO ROOM AND UNIT. CALL LIGHT IN REACH. WILL CONTINUE TO MONITOR.
--- NOTE | 2019-07-20 15:55 | NUR ---
PT TRANSFERED TO ICU VIA STRETCHER. PT IN STABLE CONDITION. REPORT GIVEN TO MARGARETH PERKINS.
[2019-07-20 15:58] LABS: HEMATOCRIT 32.5 % (39.0-50.0); HEMOGLOBIN 9.7 g/dl (14.0-18.0)
--- NOTE | 2019-07-20 16:35 | NUR ---
ACCART 311. PT STATES THAT HE IS HUNGRY AND HE NOT BEEN ABLE TO EAT ALL DYA. 03/28 SINAN SHANKS PROVIDED.
--- NOTE | 2019-07-20 17:39 | NUR ---
DR ALMEIDA NOTIFIED OF CONTINUED HYPOTENSION. ORDERS RECEIVED. DR RANKIN NOTIFIED. CONSENT OBTAINED FOR CENTRAL LINE PLACEMENT.
--- NOTE | 2019-07-20 19:00 | NUR ---
DR BOUCHER AT BEDSIDE FOR CENTRAL LINE PLACEMENT AND PATIENT REFUSED.
--- NOTE | 2019-07-20 21:05 | NUR ---
lortab 5mg given po per request for scrotal pain.
--- NOTE | 2019-07-20 22:00 | NUR ---
watching tv. no distress.
[2019-07-21] VITALS (60 sets, daily range): BP systolic 84–181; BP diastolic 54–140
--- NOTE | 2019-07-21 00:01 | NUR ---
eyes closed. no distress. no distress. monitoring and evaluation advisor shows sinus rhythm pvcs hr 76.
--- NOTE | 2019-07-21 02:00 | NUR ---
resting quietly. resps even & unlabored. no apparent distress.
--- NOTE | 2019-07-21 04:00 | NUR ---
eyes closed. no distress. youth nutritional monitor shows sinus rhythm pvs hr 71.
--- NOTE | 2019-07-21 05:30 | NUR ---
blood drawn & sent to lab.
[2019-07-21 06:05] LABS: HEMATOCRIT 34.7 % (39.0-50.0); HEMOGLOBIN 10.5 g/dl (14.0-18.0); IMMATURE GRANULOCYTES 1.4 % (0.0-5.0); MEAN CELL VOLUME 84.6 fL CALC (80.0-100.0); MEAN CORPUSCULAR HGB 25.6 pG CALC (26.0-32.0); MEAN CORPUSCULAR HGB CONC 30.3 g/dL CAL (32.0-36.0); NEUT# 10.45 thou/uL (1.82-7.42); RED BLOOD COUNT 4.1 mill/uL (4.70-6.10); RED CELL DISTRI WIDTH 14.9 % (11.5-15.5)
[2019-07-21 06:07] LABS: ALBUMIN 2.6 g/dL (3.2-5.0); ALKALINE PHOSPHATASE 205 u/l (38-126); ANION GAP 11 (6-22 (CALC)); BUN 23 mg/dL (9-20); BUN/CREATININE RATIO 19 (12-20 (CALC)); CARBON DIOXIDE 24 mmol/l (22-30); CHLORIDE 103 mmol/l (95-108); CREATININE 1.2 mg/dL (0.7-1.3); GFR > 60 ML/MIN (>=60 (CALC)); GFR FOR AFR.AMER. > 60 ML/MIN (>=60 (CALC)); SGOT/AST 42 u/l (17-59); SODIUM 134 mmol/l (137-146); TOTAL PROTEIN 5.5 g/dL (6.3-8.2)
[2019-07-21 06:10] LABS: BILIRUBIN, TOTAL 0.7 mg/dL (0.0-1.4)
--- NOTE | 2019-07-21 07:30 | NUR ---
PT RESTING IN BED, NO SIGNS OF DISTRESS NOTED, RESP EVEN AND UNLABORED. PT MEDICATED WITH NOVOLOG, DISCUSSED POC, DRESSING CDI, PT ALERT AND ORIENTED X3. ASSESSMENT COMPLETED, CALL LIGHT IN REACH,CONTINUE TO MONITOR.
--- NOTE | 2019-07-21 08:22 | NUR ---
PT ATE BREAKFAST REQUESTING TO SIT IN RECLINER, PT ASSISTED TO RECLINER AT BEDSIDE, LINENS CHANGED. CALL LIGHT IN REACH,CONTINUE TO MONITOR.
--- NOTE | 2019-07-21 10:30 | NUR ---
PT STANDING AT BEDSIDE, PT STATES HE IS STRETCHING. NO SIGNS OF DISTRESS NOTED, RESP EVEN AND UNLABORED. NOTED PACKING FROM DRESSING FALLING OUT, DISCUSSED CHANGING DRESSING PT AGREES. PACKING REMOVED AND NEW PACKING INSERTED, SECURED WITH ABD PADS AND TAPE, PT TOLERATED WELL. ASSISTED PT TO BED, CALL LIGHT IN REACH,CONTINUE TO MONITOR.
--- NOTE | 2019-07-21 12:00 | NUR ---
UNASYN INFUSING, PT ASSISTED TO RECLINER AND LUNCH TRAY GIVEN. CALL LIGHT IN REACH,CONTINUE TO MONITOR.
--- NOTE | 2019-07-21 12:52 | NUR ---
LEVOPHED OFF AT THIS TIME.
--- NOTE | 2019-07-21 14:23 | NUR ---
PT RESTING IN RECLINER AT BEDSIDE, PT MEDICATED FOR PAIN, VANCO INFUSION INITIATED, CALL LIGHT IN REACH,CONTINUE TO MONITOR.
--- NOTE | 2019-07-21 15:56 | NUR ---
PT RESTING IN RECLINER WITH EYES CLOSED, RESP EVEN AND UNLABORED, BP STABLE, IVF INFUSING, CALL LIGHT IN REACH,CONTINUE TO MONITOR.
--- NOTE | 2019-07-21 17:58 | NUR ---
PT MEDICATED FOR PAIN, NO SIGNS OF DISTRESS NOTED, RESP EVEN AND UNLABORED. DINNER PROVIDED. CALL LIGHT IN REACH,CONTINUE TO MONITOR.
--- NOTE | 2019-07-21 19:30 | NUR ---
awake. no acute distress. monitoring and evaluation advisor shows sinus tach hr 102. #20 rfa ns infusing @ [id number]. po fluids taken well. voids per urinal. dsg cont to scrotum/butocks area. fall precautions cont. air scrubber cont.
--- NOTE | 2019-07-21 21:30 | NUR ---
blood drawn & sent to lab for vanco level.
--- NOTE | 2019-07-21 21:30 | NUR ---
c/o op pain. lortab 5mg po given as ordered.
--- NOTE | 2019-07-21 23:30 | NUR ---
up to chair per request. linen changed.
[2019-07-22] VITALS (11 sets, daily range): BP systolic 97–140; BP diastolic 64–93
--- NOTE | 2019-07-22 00:50 | NUR ---
assisted to bed. wallace well.
--- NOTE | 2019-07-22 02:00 | NUR ---
eyes closed. resp even & unlabored. no apparent distress.
--- NOTE | 2019-07-22 04:20 | NUR ---
lab here. blood drawn.
[2019-07-22 04:39] LABS: HEMATOCRIT 33.7 % (39.0-50.0); MEAN CELL VOLUME 85.3 fL CALC (80.0-100.0); MEAN CORPUSCULAR HGB 25.3 pG CALC (26.0-32.0); MEAN CORPUSCULAR HGB CONC 29.7 g/dL CAL (32.0-36.0); RED BLOOD COUNT 3.95 mill/uL (4.70-6.10); RED CELL DISTRI WIDTH 14.8 % (11.5-15.5)
[2019-07-22 04:54] LABS: ALBUMIN 2.4 g/dL (3.2-5.0); ALKALINE PHOSPHATASE 189 u/l (38-126); ANION GAP 6 (6-22 (CALC)); BILIRUBIN, TOTAL 0.4 mg/dL (0.0-1.4); BUN 14 mg/dL (9-20); BUN/CREATININE RATIO 14 (12-20 (CALC)); CARBON DIOXIDE 28 mmol/l (22-30); CHLORIDE 108 mmol/l (95-108); GFR > 60 ML/MIN (>=60 (CALC)); GFR FOR AFR.AMER. > 60 ML/MIN (>=60 (CALC)); POTASSIUM 3.6 mmol/l (3.5-5.1); SGOT/AST 40 u/l (17-59); SODIUM 138 mmol/l (137-146); TOTAL PROTEIN 5.4 g/dL (6.3-8.2)
--- NOTE | 2019-07-22 06:00 | NUR ---
no acute change in condition this shift. library monitor shows sinus tach hr 105.
--- NOTE | 2019-07-22 06:45 | NUR ---
REPORT RECEIVED FROM Maddie MERAZ LPN. CARE ASSUMED.
--- NOTE | 2019-07-22 07:00 | NUR ---
PT RESTING IN BED WITH EYES CLOSED. AROUSES TO VERBAL STIMULI. PT IS ALERT AND ORIENTED X3. SHIFT ASSESSMENT COMPLETED AT THIS TIME. IV PATENT X1. CALL LIGHT IN REACH. WILL CONTINUE TO MONITOR
--- NOTE | 2019-07-22 08:29 | NUR ---
PT PRESENTS WITH ABSCESS/CELLULITIS. VANCOMYCIN ORDERED FOR PHARMACY TO DOSE. PT WAS RECEIVING VANCOMYCIN 1250MG IV Q8H @ 0630, 1400, AND 2200. VANCOMYCIN TROUGH WAS DRAWN 07/20 @ 2137, BEFORE 5TH DOSE. TROUGH = 19 MCG/ML. CHANGE VANCOMYCIN TO 1250MG IV A12H @ 0630 AND 1830. DRAW VANCOMYCIN TROUGH 30 MIN PRIOR TO 4TH DOSE ON 07/22 @ 1800. GOAL TROUGH IS 10-15 MCG/ML. PHARMACY WILL CONTINUE TO FOLLOW.
--- NOTE | 2019-07-22 09:00 | NUR ---
PONED MED SURG FOR TRANSFER. BED ASSIGNMENT ROOM 278
--- NOTE | 2019-07-22 10:00 | NUR ---
PT RESTING IN BED AWAKE RESP ARE EVEN AND UNLABORED. NO DISTRESS NOTED. CALL LIGHT IN REACH. WILL CONTINUE TO MONITOR
--- NOTE | 2019-07-22 10:50 | NUR ---
REPORT GIVEN TO RAMSES PERKINS ON MED SURG.
--- NOTE | 2019-07-22 11:01 | NUR ---
PT TO [employer] VIA BED ACCOMPANIED BY SERAFIN PERKINS.
--- NOTE | 2019-07-22 11:19 | NUR ---
REPORT RECEIVED FROM SANTOS IN ICU, PT ARRIVED ON UNIT @ 1103 TRANSPORTED VIA STRETCHER BY ICU STAFF, TRANSFERRED TO BED, CO ACHING PAIN TO SURGICAL SITE @ 11/03 AT THIS TIME, DRESSINGS TO SITE SOILED WITH BLOOD, SETTLED IN ROOM, CALL CUELLO IN REACH.
--- NOTE | 2019-07-22 15:00 | NUR ---
DR MCCOY ROUNDED, DID DRESSING CHANGE AND WROTE ORDERS, PAIN CONCERNS ADDRESSED.
--- NOTE | 2019-07-22 20:51 | NUR ---
PT RESTING IN BED, ALERT AND ORIENTED. RESPIRATIONS ARE EVEN AND UNLABORED ON RA. LUNGS SOUND DIMINISHED. PEDAL PULSES WEAK. +2 EDEMA BILATERALLY TO THE FEET. PT REPORTS HAVING A HEAD ACHE, PT TO BE MEDICATED PER EMAR ORDERS. SAFETY PRECAUTIONS IN PLACE. WILL CONTINUE TO MONITOR.
--- NOTE | 2019-07-23 00:13 | NUR ---
PT RESTING IN BED ALERT AND ORIETNED, PT COMPLAINS OF HAVING PAIN IN HIS PENIS RATING HIS PAIN A 9/10, PT TO BE MEDICATED PER EMAR ORDERS. SAFETY PRECAUTIONS IN PLACE WILL CONTINUE TO MONITOR
[2019-07-23 04:07] VITALS: BP 104/75
--- NOTE | 2019-07-23 04:30 | NUR ---
PT RESTING IN BED NO S/S OF DISTRESS AT THIS TIME. WILL CONTINUE TO MONITOR.
--- NOTE | 2019-07-23 04:40 | NUR ---
PT RESTING IN BED NO S/S OF DISTRESS AT THIS TIME. BED ALARM ACTIVE FOR PT SAFETY. WILL CONTINUE TO MONITOR.
[2019-07-23 05:38] LABS: ANION GAP 8 (6-22 (CALC)); BUN 9 mg/dL (9-20); BUN/CREATININE RATIO 10 (12-20 (CALC)); CARBON DIOXIDE 24 mmol/l (22-30); CHLORIDE 108 mmol/l (95-108); GFR > 60 ML/MIN (>=60 (CALC)); GFR FOR AFR.AMER. > 60 ML/MIN (>=60 (CALC)); POTASSIUM 3.7 mmol/l (3.5-5.1); SODIUM 137 mmol/l (137-146)
--- NOTE | 2019-07-23 07:15 | NUR ---
REPORT RECEIVED FROM GREGORIO OLVERA;PT APPEARS TO BE SLEEPING IN SEMI FOWLERS POSITION;NO S/S OF DISTRESS NOTED;RESPIRATIONS EVEN AND UNLABORED ON RA;IV FLUIDS INFUSING WITH EASE PER ORDER;ALL SAFETY PRECAUTIONS IN PLACE WITH BED IN THE LOWEST POSITION AND CALL LIGHT IN REACH;WILL CONTINUE TO MONITOR
--- NOTE | 2019-07-23 08:25 | NUR ---
PT RESTING IN SEMI FOWLERS POSITION,A&O X3;VS OBTAINED AND ASSESSMENT COMPLETED;PT DENIES ANY CURRENT PAIN OR DISCOMFORTS,PAIN SCALE AND REPORTING EDUCATED;RESPIRATIONS EVEN AND UNLABORED ON RA,DIMINISHED LUNG SOUNDS NOTED;ABDOMEN DISTENDED/SOFT ON PALPATION AND ACTIVE IN ALL 4 QUADRANTS,LAST BM 07/20/19.PT OFFERED PRUNE JUICE BUT REFUSES;WEAK PEDAL PULSES WITH BLE EDEMA NOTED,ENCOURAGED ELEVATION OF BLE;DRESSING TO BUTTOCK AND PENIS CHANGED AT THIS TIME PER ORDER,PT TOLERATED WELL;#20G TO LEFT WRIST INFUSING NS PER ORDER,SITE APPEARS HEALTHY;ACCUCHECK 116,NO COVERAGE NEEDED;PT DENIES ANY ADDITIONAL NEEDS AT THIS TIME AND IS ENCOURAGED TO CALL FOR ASSISTANCE IF NEEDED;FALL PRECAUTIONS IN PLACE WITH CALL LIGHT IN REACH;WILL CONTINUE TO MONITOR
[2019-07-23 08:26] VITALS: BP 124/94
--- NOTE | 2019-07-23 10:42 | NUR ---
AT BEDSIDE DISCUSSING POC.
--- NOTE | 2019-07-23 11:20 | NUR ---
PT RESTING IN SEMI FOWLERS POSITION;RESPIRATIONS EVEN AND UNLABORED ON RA;PT REPORTS PENILE PAIN RATING 9/10 ON THE PAIN SCALE AND REQUESTS PAIN MEDICATION,PT MEDICATED WITH PRN LORTAB 5/325MG PO AT THIS TIME;IV FLUIDS INFUSING WITH EASE PER ORDER AND ABX ADMINISTERED AT THIS TIME;ACCUCHECK 180,PT COVERED WITH SLIDING SCALE NOVOLOG PER ORDER;FRESH ICE PROVIDED PER REQUEST;PT DENIES ANY ADDITIONAL NEEDS AT THIS TIME;ASSESSMENT REMAINS UNCHANGED;ENCOURAGED TO CALL FOR ASSISTANCE IF NEEDED;CALL LIGHT IN REACH;WILL CONTINUE TO MONITOR
[2019-07-23 15:15] VITALS: BP 94/60
--- NOTE | 2019-07-23 15:25 | NUR ---
PT RESTING IN SEMI FOWLERS POSITION;RESPIRATIONS EVEN AND UNLABORED ON RA;PT DENIES ANY CURRENT PAIN OR NEEDS;IV FLUIDS INFUSING WITH EASE PER ORDER;DRESSINGS REMAIN CDI;VS OBTAINED BY GUILLE QUICK.CURRENT TEMP 99.6,PT ENCOURAGED TO REMOVE BLANKET AND AC LOWERED;ASSESSMENT REMAINS UNCHANGED AT THIS TIME;ENCOURAGED TO CALL FOR ASSISTANCE IF NEEDED;CALL LIGHT IN REACH;WILL CONTINUE TO MONITOR
--- NOTE | 2019-07-23 18:02 | NUR ---
LAB AT BEDSIDE
[2019-07-23 19:23] VITALS: BP 130/87
--- NOTE | 2019-07-23 20:14 | NUR ---
ASSESSMENT COMPLETED. NO RESP. DISTRESS NOTED. DRESSINGS INTACT TO PENIS AND RIGHT BUTTOCK. IV SITE PATENT AND ORDERED IVF INFUSING WELL. REVIEWED PAIN MEDICATION FREQUENCIES WITH PT. AND VERBALIZES UNDERSTANDING WITH POC. VOICES NO CONCERNS. CALL LIGHT IS IN REACH. WILL CONTIUNE TO MONITOR.
--- NOTE | 2019-07-23 21:31 | NUR ---
PRN HYDROCODONE GIVEN FOR REPORTS OF PENIS AND RIGHT BUTTOCK PAIN, WILL REASSESS. PT. REPORTS LAST BM YESTERDAY AM AND DECLINES PRUNE JUICE. FRESH WATER PROVIDED. CALL LIGHT IS IN REACH.
[2019-07-24 01:04] VITALS: BP 123/53
--- NOTE | 2019-07-24 01:21 | NUR ---
PT. HAD A BM AND ASSISTED WITH PEDRO CARE. DRESSING TO RIGHT BUTTOCK CAME OFF AND PENIS DRESSING WITH DRAINAGE NOTED BOTH ARE REMOVED AND CLEANSED AND NEW DRESSINGS APPLIED. PT. IN PAIN , BUT TOLERATED. MEDICATED WITH ORDERED PRN HYDROCODONE. WILL REASSESS. FRESH WATER AND ICE CHIPS PROVIDED. CALL LIGHT IS IN REACH.
--- NOTE | 2019-07-24 04:40 | NUR ---
PT. EATING A SNACK; DENIES NEEDS. ENCOURAGED TO CALL FOR ANY NEEDS. CALL LIGHT IS IN REACH.
[2019-07-24 05:10] VITALS: BP 117/82
[2019-07-24 05:13] LABS: HEMATOCRIT 31.8 % (39.0-50.0); HEMOGLOBIN 9.6 g/dl (14.0-18.0); MEAN CELL VOLUME 84.6 fL CALC (80.0-100.0); MEAN CORPUSCULAR HGB 25.5 pG CALC (26.0-32.0); MEAN CORPUSCULAR HGB CONC 30.2 g/dL CAL (32.0-36.0); RED BLOOD COUNT 3.76 mill/uL (4.70-6.10); RED CELL DISTRI WIDTH 15.3 % (11.5-15.5)
--- NOTE | 2019-07-24 05:16 | NUR ---
PT. URINATED AND EMPTIED AT THIS TIME. PT. REMAINS STANDING AT BEDSIDE AND REPORTS HE JUST WANTS TO STRETCH A BIT. DRESSINGS REMAIN CDI TO RIGHT BUTTOCK AND PENIS. FRESH WATER PROVIDED. CALL LIGHT IS IN REACH.
[2019-07-24 05:30] LABS: ALBUMIN 2.6 g/dL (3.2-5.0); ALKALINE PHOSPHATASE 166 u/l (38-126); ANION GAP 11 (6-22 (CALC)); BILIRUBIN, TOTAL 0.4 mg/dL (0.0-1.4); BUN 10 mg/dL (9-20); BUN/CREATININE RATIO 11 (12-20 (CALC)); CARBON DIOXIDE 26 mmol/l (22-30); CHLORIDE 107 mmol/l (95-108); CREATININE 0.9 mg/dL (0.7-1.3); GFR > 60 ML/MIN (>=60 (CALC)); GFR FOR AFR.AMER. > 60 ML/MIN (>=60 (CALC)); POTASSIUM 3.9 mmol/l (3.5-5.1); SGOT/AST 23 u/l (17-59); SODIUM 140 mmol/l (137-146); TOTAL PROTEIN 5.4 g/dL (6.3-8.2)
--- NOTE | 2019-07-24 06:01 | NUR ---
PT. C/O RIGHT BUTTOCK AND PENIS PAIN; MEDICATED WITH ORDERED PRN HYDROCODONE; WILL REASSESS. DENIES FURTHER NEEDS.
--- NOTE | 2019-07-24 07:30 | NUR ---
RECIEVED REPORT FROM GREGORIO CARO. PT RESTING IN SEMI FOWLERS POSTION WATCHING TV. INTRODUCED SELF TO PT. PT DENIES ANY PAIN OR DISCOMFORTS AT THIS TIME. WILL CONTINUE TO MONITOR.
--- NOTE | 2019-07-24 08:00 | NUR ---
ASSESMENT COMPLETE AND VITALS OBTAINED. BP 117/84. HR 90. OXYGEN 96% ON ROOM AIR. HEART SOUNDS NORMAL, BOWEL SOUNDS ACTIVE, AND BREATH SOUNDS CLEAR. RADIAL PULSES STRONG AND CAPILLARY REFILLS NORMAL. PEDAL PULSES STRONG. 2+ EDEMA IN LOWER EXTREMITIES, SCDS APPLIED. IV #20 IN THE LAC NS KVO IS PATENT AND SITE APPEARS TO BE HEALTHY. DRESSING IN GROIN REGION IS INTACT AND DRY. DRESSING ON RIGHT GULTEUS REGION IS INTACT BUT DAMP IN LOWER CORNER. PT REQUEST TO WAIT ON CHANGING UNTIL LATER IN THE AFTERNOON. PT EXPRESSES A 2/10 PAIN AND REQUEST MED. NO OTHER DISCOMFORTS, WILL CONTINUE TO MONITOR.
[2019-07-24 08:32] VITALS: BP 117/84
--- NOTE | 2019-07-24 12:26 | NUR ---
PT UP WALKING AROUND FIXING BED LINEN. PT REPORTED A 9/10 PAIN IN RIGHT BUTTOCK. MEDICATED WITH LARATAB. BREATHING IN EVEN AND UNLABORED. PT DENIES ANY OTHER DISCOMFORTS AT THIS TIME. WILL CONTINUE TO MONITOR.
--- NOTE | 2019-07-24 12:28 | NUR ---
AT BEDSIDE DISCUSSING POC WITH PT.
--- NOTE | 2019-07-24 14:00 | NUR ---
WET/DRY DRESSINGS CHANGES PROVIDED TO RIGHT BUTTOCK AND PENIS PER ORDER.PT TOLERATED WELL;WILL CONTINUE TO MONITOR
--- NOTE | 2019-07-24 14:13 | NUR ---
S: GUERDA GEORGES is a 59 M who presents with cellulitis. He has a history of diabetes, hypertension, afib,copd. All medications in patient's chart were reviewed. O: VS: BP 117/84, P 90, RR 19,T 98 W 115kg, HT 70IN, Scr=0.9 , A: P: Patient is on UNASYN. Vancomycin ordered for pharmacy to dose. CONTINUE Vancomycin 1250MG IV Q12H. Vancomycin trough is drawn before the dose on 07/26/11 @0600. Vancomycin goal trough is between <10-15 mcg/ml>. Pharmacy will follow and or advise on antibiotics use as needed. IRVIN BOATENG PHARMD
[2019-07-24 15:04] VITALS: BP 120/84
--- NOTE | 2019-07-24 16:00 | NUR ---
PT SLEEPING IN SEMI FOWLERS POSTION. IV SITE APPEARS HEALTHY AND PATENT. NS RUNNING AT 20. BERATHING IS EVEN AND UNLABORED. NO SIGNS OF ANY PAIN OR DISCOMFORTS AT THIS TIME. ALL SAFTEY PERCAUTIONS IN PLACE WITH THE CALL LIGHT IN REACH AND BED IN THE LOWEST POSTISION. WILL CONTINUE TO MONITOR .
--- NOTE | 2019-07-24 18:48 | NUR ---
PT RESTING IN SEMI FOLWERS POSTION WATCHING TV. BREATHING IS EVEN AND UNLABORED. VANCO RUNNING AT 125ML. PT EXPRESSED A 9/10 PAIN LOCATED AT BUTTOCK. LORTAB GIVEN. PT DENIES ANY OTHER DISCOMFORTS AT TIME TIME. ALL SAFTEY PERCAUTIONS IN PLACE.ENCOURAGED TO CALL FOR ASSISTANCE. WILL CONTINUE TO MONITOR.
--- NOTE | 2019-07-24 19:10 | NUR ---
REPORT FROM ROSIE EDWARDS. PT SITTING UP IN BED WITH EYES CLOSED. PT WAKES EASILY. ALERT AND ORIENTED. NO APPARENT DISTRESS NOTED. PT DENIES ANY PAIN OR DISCOMFORT AT THIS TIME. IV SITE APPEARS HEALTHY. +2 PITTING EDEMA NOTED TO BLE, ENCOURAGED ELEVATION AND REPLACING SCDS, PT REFUSED AT THIS TIME. EDUCATION PROVIDED. DISCUSSED POC. PT VERBALIZED UNDERSTANDING AND STATES WILL PUT SCDS BACK ON IN A LITTLE WHILE. NO CURRENT WANTS OR NEEDS. CALL LIGHT WITHIN REACH. WILL CONTINUE TO MONITOR.
[2019-07-24 19:51] VITALS: BP 127/90
--- NOTE | 2019-07-24 21:47 | NUR ---
PT MEDICATED ORDERED. SNACK PROVIDED AT THIS TIME. PT DENIES ANY OTHER WANTS OR NEEDS. CALL LIGHT WITHIN REACH. WILL CONTINUE TO MONITOR.
--- NOTE | 2019-07-25 00:42 | NUR ---
PT MEDICATED FOR PAIN IN RIGHT BUTTOCK 10/. PT ENCOURAGED TO REPOSITION SELF FOR COMFORT. DRESSING REMAIN CDI. PT DENIES ANY OTHER WANTS OR NEEDS. PT TURNED SELF TO RIGHT SIDE. CALL LIGHT WITHIN REACH. WILL CONTINUE TO MONITOR.
[2019-07-25 04:00] VITALS: BP 132/88
--- NOTE | 2019-07-25 04:57 | NUR ---
PT RESTING IN BED WITH EYES CLOSED. NO APPARENT DISTRESS NOTED. CALL LIGHT WITHIN REACH. WILL CONTINUE TO MONITOR.
--- NOTE | 2019-07-25 07:42 | NUR ---
RECIEVED REPORT FROM GRACE TEJEDA. PT RESTING IN SEMI FOWLERS POSITION. INTRODUCED SELF TO PT. EDUCATED PT ON POC. VANCO RUNNING IN IV LOCATED IN LFA, IV SITE APPEARS HEALTHY IN PATENT. PT DENIES ANY PAIN OR DISCOMFORTS AT THIS TIME. ALL SAFTEY PERCAUTIONS IN PLACE. ENCOURAGE TO CALL FOR ASSISTANCE. WILL CONTINUE TO MONITOR.
[2019-07-25 08:00] VITALS: BP 121/79
--- NOTE | 2019-07-25 08:25 | NUR ---
ASSESMENT COMPLETED AND VITALS OBTAINED. BP 121/79, HR 94, O2 98% ON ROOM AIR. PT A/O X3 AND AMBULATORY. HEART RHYTHM NORMAL, BREATH SOUNDS CLEAR AND UNLABORED, BOWEL SOUNDS ACTIVE IN ALL QUADRANTS. RADIAL PULSES STRONG AND CAPILLARY REFILL NORMAL. 2+ PITTING EDEMA IN LOWER EXTREMITIES, SCDS APPLIED. COOL/DRY SKIN. DRESSING IN PELVIC REGION IS DRY AND INTACT. DRESSING ON BUTTOCK IS DAMP IN LOWER CORNER BUT PT REQUEST TO CHANGE IT LATER ON IN THE AFTERNOON. VANCO RUNNING IN #20G RAC AT 125ML ORDERED. IV SITE APPEARS HEALTHY AND PATENT. PT DENIES ANY DISCOMFORTS AT THIS TIME. ALL SAFTEY PERCAUTIONS IN PLACE WITH BED IN THE LOWEST POSITION. ENCOURAGED TO CALL FOR ASSISTANCE. WILL CONTINUE TO MONITOR.
--- NOTE | 2019-07-25 11:20 | NUR ---
CONSULT OBTAINED AT THIS TIME. ALSO AT BEDSIDE
--- NOTE | 2019-07-25 12:07 | NUR ---
PT RESTING IN SEMI FOWLERS POSTION EATING LUNCH. BREATHING IS EVEN AND UNLABORED. PT DENIES ANY PAIN OR DISCOMFORTS AT THIS TIME. ALL SAFTEY PRECATIONS IN PLACE WITH CALL LIGHT IN REACH, ENCOURAGED TO CALL FOR ASSISTANCE. WILL CONTINUE TO MONITOR.
[2019-07-25 16:09] VITALS: BP 126/87
--- NOTE | 2019-07-25 16:16 | NUR ---
BOTH DRESSINGS CHANGED AT THIS TIME. PT TOLERATED WELL. PT STATED THAT HE WAS GOING TO TAKE A NAP. PT DENIES ANY PAIN OR DISCOMFORTS AT THIS TIME. ALL SAFTEY PRECAUTIONS IN PLACE WITH CALL LIGHT IN REACH, ENCOURAGED TO CALL FOR ASSISTANCE. WILL CONTINUE TO MONITOR.
--- NOTE | 2019-07-25 17:01 | NUR ---
SPOKE WITH REGARDING DEVELOPING ABCESS.NEW ORDERS TO MAKE PT NPO AT MIDNIGHT AND APPLY WARM COMPRESSES TO AFFECTED AREA OBTAINED.
--- NOTE | 2019-07-25 18:23 | NUR ---
PT RESTING IN SEMI FOWLERS BED. REASSESS OF PAIN AT THIS TIME, PT REPORTED IT TO BE A 7/10 FROM A 10/10. PT BREATHING IS EVEN AND UNLABORED, ON ROOM AIR. EDUCATED PT ON HOT COMPRESS AND NPO STATUS. PT VERBALIZED UNDERSTANDING. IV RUNNING NS AT 20 ORDERED. PT DENIES ANY OTHER DISCOMFORTS AT THIS TIME. ALL SAFTEY PRECAUTIONS IN PLACE WITH CALL LIGHT IN REACH. WILL CONTINUE TO MONITOR
[2019-07-25 18:53] VITALS: BP 124/84
--- NOTE | 2019-07-25 19:40 | NUR ---
PT RESTING IN BED, NO SIGNS OF DISTRESS NOTED, RESP EVEN AND UNLABORED. PT ALERT AND ORIENTED X3, DISCUSSED POC, PT HAS WARM COMPRESS TO GROIN, DRESSING CDI, PT WEARING MESH PANTIES. ASSESSMENT COMPLETED. DISCUSSED PLANS FOR NPO AFTER MIDNIGHT PT AGREES. CALL LIGHT IN REACH,CONTINUE TO MONITOR.
--- NOTE | 2019-07-25 22:46 | NUR ---
PT RESTING IN BED EATING ICE CREAM C/O PAIN 01/03 PT MEDICATED FOR PAIN, WARM COMPRESS PROVIDED, CALL LIGHT IN REACH,CONTINUE TO MONITOR.
--- NOTE | 2019-07-26 | NUR ---
ALL FOOD AND DRINKS REMOVED, PT AWARE OF NPO STATUS, CALL LIGHT IN REACH,CONTINUE TO MONITOR.
[2019-07-26 03:58] VITALS: BP 101/75
[2019-07-26 05:44] LABS: HEMATOCRIT 33.7 % (39.0-50.0); HEMOGLOBIN 10.1 g/dl (14.0-18.0); MEAN CELL VOLUME 84.7 fL CALC (80.0-100.0); MEAN CORPUSCULAR HGB 25.4 pG CALC (26.0-32.0); RED BLOOD COUNT 3.98 mill/uL (4.70-6.10); RED CELL DISTRI WIDTH 15.7 % (11.5-15.5)
--- NOTE | 2019-07-26 05:44 | NUR ---
PT RESTING IN BED, OFFERED PT WARM COMPRESS, PT DECLINED REQUESTING ICE CHIPS INFORMED PT NPO STATUS AWAITING FURTHER INSTRUCTIONS ONCE SEEN BY MD, PT AGREED. CONTINUE TO MONITOR.
[2019-07-26 06:20] LABS: ALBUMIN 2.7 g/dL (3.2-5.0); ALKALINE PHOSPHATASE 150 u/l (38-126); BILIRUBIN, TOTAL 0.4 mg/dL (0.0-1.4); BUN 10 mg/dL (9-20); BUN/CREATININE RATIO 11 (12-20 (CALC)); CHLORIDE 104 mmol/l (95-108); CREATININE 0.9 mg/dL (0.7-1.3); GFR > 60 ML/MIN (>=60 (CALC)); GFR FOR AFR.AMER. > 60 ML/MIN (>=60 (CALC)); POTASSIUM 3.5 mmol/l (3.5-5.1); SGOT/AST 23 u/l (17-59); SODIUM 141 mmol/l (137-146); TOTAL PROTEIN 5.5 g/dL (6.3-8.2)
[2019-07-26 06:29] LABS: ANION GAP 9 (6-22 (CALC)); CARBON DIOXIDE 32 mmol/l (22-30)
[2019-07-26 08:00] VITALS: BP 118/86
--- NOTE | 2019-07-26 09:00 | NUR ---
PT RESTING IN THE BED WITH EYES CLOSED, RESPONDS TO DOOR OPENING. PT ALERT, ORIENTED X 3. LUNGS CLEAR. PEDAL PULSES ARE DECREASED, 3 + BLE EDEMA NOTED. PT NPO SINCE [place] PER DR RANKIN, AWAITING DOCTOR'S ARRIVAL TO FLOOR.
--- NOTE | 2019-07-26 14:36 | NUR ---
PT AT REST IN THE BED, NO DISTRESS. DR RANKIN CAME TO SEE PT, DID NOT THINK THAT PT NEEDED ANOTHER SURGERY, RESUMED DIET. PT IN NO ACUTE PAIN.
--- NOTE | 2019-07-26 15:00 | NUR ---
DRESSING CHANGED TO SURGICAL SITES, PT TOLERATED WELL.
[2019-07-26 15:05] VITALS: BP 125/85
--- NOTE | 2019-07-26 17:36 | NUR ---
PT MEDICATED FOR PAIN RECENTLY. NO DISTRESS NOTED HE RESTS IN THE BED. PT AMBULATORY TO BR NEEDED.
[2019-07-26 19:15] VITALS: BP 116/75
--- NOTE | 2019-07-26 19:20 | NUR ---
REPORT FROM KEVIN RN. PT SITTING UP IN BED WATCHING TV. ALERT AND ORIENTED. NO APPARENT DISTRESS NOTED. PT DENIES ANY PAIN OR DISCOMFORT AT THIS TIME. IV SITE APPEARS HEALTHY. +2 PITTING EDEMA NOTED TO BLE, ENCOURAGED ELEVATION AND REPLACING SCDS, EDUCATION PROVIDED. DISCUSSED POC. PT VERBALIZED UNDERSTANDING. DRESSING TO RIGHT BUTTOCK REINFORCED WITH TAPE, ALL DRESSING CDI. NO CURRENT WANTS OR NEEDS. CALL LIGHT WITHIN REACH. WILL CONTINUE TO MONITOR.
--- NOTE | 2019-07-26 21:54 | NUR ---
PT MEDICATED FOR PAIN IN RIGHT BUTTOCK. ENCOURAGED PT TO REPOSITION SELF IN BED. CUP OF ICE PROVIDED AT THIS TIME. IV ABT INFUSING WITHOUT DIFFICULTY. CALL LIGHT WITHIN REACH. WILL CONTINUE TO MONITOR.
--- NOTE | 2019-07-27 01:20 | NUR ---
PT RESTING IN BED WITH EYES CLOSED. NO APPARENT DISTRESS NOTED. CALL LIGHT WITHIN REACH. WILL CONTINUE TO MONITOR.
[2019-07-27 04:10] VITALS: BP 122/83
--- NOTE | 2019-07-27 05:35 | NUR ---
PT RESTING IN BED WITH EYES CLOSED. NO APPARENT DISTRESS NOTED. CALL LIGHT WITHIN REACH. WILL CONTINUE TO MONITOR.
[2019-07-27 07:25] VITALS: BP 112/77
[2019-07-27 08:00] VITALS: BP 103/77
--- NOTE | 2019-07-27 12:00 | NUR ---
DRSG CHANGES COMPLETED USING ASEPTIC TECHNIQUE. CLEANED WITH NORMAL SALINE AND PACKED WITH MOIST SALINE DRSG. WOUNDS TO GROIN, SUPRA PUBIC AREA, AND R BUTTOCK. PATIENT TOLERATED WELL. BILATERAL LOVER EXTREMITIES ELEDATED DUE TO EDEMA. PT REPORTS PAIN RELIEF WITH ELEVATING LOWER EXTREMITIES. SCDs remain in use. -
[2019-07-27 15:10] VITALS: BP 116/80
--- NOTE | 2019-07-27 16:00 | NUR ---
PT RESTING WITH EYES CLOSED. EASILY AROUSED. NO DISTRESS NOTED.
[2019-07-27 19:00] VITALS: BP 113/78
--- NOTE | 2019-07-27 19:20 | NUR ---
REPORT FROM ERASMO PERKINS. PT SITTING UP IN BED WATCHING TV. ALERT AND ORIENTED. NO APPARENT DISTRESS NOTED. PT DENIES ANY PAIN OR DISCOMFORT AT THIS TIME. IV SITE APPEARS HEALTHY. +1 PITTING EDEMA NOTED TO BLE, ENCOURAGED ELEVATION, SCDS IN PLACE. EDUCATION PROVIDED. DISCUSSED POC. PT VERBALIZED UNDERSTANDING. DRESSING TO RIGHT BUTTOCK REINFORCED WITH TAPE, ALL DRESSING CDI. NO CURRENT WANTS OR NEEDS. CALL LIGHT WITHIN REACH. WILL CONTINUE TO MONITOR.
[2019-07-27 20:01] VITALS: BP 113/78
--- NOTE | 2019-07-27 23:47 | NUR ---
PT RESTING IN BED WITH EYES CLOSED. NO APPARENT DISTRESS NOTED. CALL LIGHT WITHIN REACH. WILL CONTINUE TO MONITOR.
--- NOTE | 2019-07-28 03:35 | NUR ---
PT RESTING IN BED WITH EYES CLOSED. NO APPARENT DISTRESS NOTED. CALL LIGHT WITHIN REACH. WILL CONTINUE TO MONITOR.
[2019-07-28 04:00] VITALS: BP 119/85
[2019-07-28 05:35] LABS: ANION GAP 9 (6-22 (CALC)); BUN 14 mg/dL (9-20); BUN/CREATININE RATIO 12 (12-20 (CALC)); CARBON DIOXIDE 32 mmol/l (22-30); CHLORIDE 100 mmol/l (95-108); CREATININE 1.1 mg/dL (0.7-1.3); GFR > 60 ML/MIN (>=60 (CALC)); GFR FOR AFR.AMER. > 60 ML/MIN (>=60 (CALC)); POTASSIUM 3.5 mmol/l (3.5-5.1); SODIUM 137 mmol/l (137-146)
[2019-07-28 07:43] VITALS: BP 100/72
--- NOTE | 2019-07-28 08:09 | NUR ---
PT IS AWAKE, ALERT, ORIENTED X 3. DRESSINGS TO BUTTOCK AND PENIS CDI. NO PAIN. LEGS ARE EDEMATOUS AT 3+, PT STATES RIGHT LEG IS UNCOMFORTABLE WITH GOUT LOCATED THERE.
--- NOTE | 2019-07-28 13:28 | NUR ---
PT PROVIDED WITH MEDS ORDERED, RECEIVED PAIN MED PER RIGHT FOOT PAIN. AFTER COLCHICINE GIVEN PT STATES FOOT FEELS BETTER ALREADY.
[2019-07-28 15:15] VITALS: BP 97/69
--- NOTE | 2019-07-28 17:29 | NUR ---
DRESSING CHANGED TO AREAS OF SURGICAL INTERVENTIONS, SEEN DOING WELL. NO SIGNIFICANT DRAINAGE, NO UNHEALTHY TISSUE SEEN. PT TOLERATED WELL.
[2019-07-28 19:26] VITALS: BP 116/80
--- NOTE | 2019-07-28 20:05 | NUR ---
ASSESSMENT COMPLETED; NO DISTRESS NOTED; DENIES NEEDS/PAIN. DRESSING INTACT TO PENIS AND RIGHT BUTTOCK; CDI; IV SITE PATENT AND ORDERED IVF INFUSING WELL. EDEMA NOTED TO BLE >RLE. PT. REPORTS HAVING BM TODAY, NOT INSPECTED BY THIS MANAGER MAC. CALL LIGHT IS IN REACH.
--- NOTE | 2019-07-28 20:58 | NUR ---
PT. C/O RIGHT FOOT AND BUTTOCK PAIN; MEDICATED WITH ORDERED PRN HYDROCODONE; WILL REASSESS.
--- NOTE | 2019-07-29 00:02 | NUR ---
ICE CHIPS PROVIDED PER PT'S REQUEST. VSS. NO DISTRESS NOTED; DENIES NEEDS.
--- NOTE | 2019-07-29 03:15 | NUR ---
RESTING IN BED WITH EYES CLOSED; RESP. EVEN AND UNLABORED. CALL LIGHT IS IN REACH.
[2019-07-29 04:10] VITALS: BP 118/80
--- NOTE | 2019-07-29 04:29 | NUR ---
PT. C/O RIGHT BUTTOCK PAIN AND RIGHT FOOT PAIN, MEDICATED WITH ORDERED PRN LORTAB; WILL REASSESS. RIGHT BUTTOCK DRESSING SOILED AND REMOVED, CLEANSED WITH NS AND NEW DRESSING APPLIED PER ORDER; MESCH PANTIES REMOVED DUE TO THEM BEING TOO SMALL R/T EDEMA. ICE CHIPS PROVIDED. DENIES FURTHER NEEDS.
[2019-07-29 05:12] LABS: HEMATOCRIT 33.8 % (39.0-50.0); IMMATURE GRANULOCYTES 0.4 % (0.0-5.0); MEAN CELL VOLUME 86.2 fL CALC (80.0-100.0); MEAN CORPUSCULAR HGB 25.5 pG CALC (26.0-32.0); MEAN CORPUSCULAR HGB CONC 29.6 g/dL CAL (32.0-36.0); NEUT# 4.83 thou/uL (1.82-7.42); RED BLOOD COUNT 3.92 mill/uL (4.70-6.10); RED CELL DISTRI WIDTH 15.7 % (11.5-15.5)
[2019-07-29 05:41] LABS: ALBUMIN 2.8 g/dL (3.2-5.0); ALKALINE PHOSPHATASE 120 u/l (38-126); ANION GAP 9 (6-22 (CALC)); BILIRUBIN, TOTAL 0.5 mg/dL (0.0-1.4); BUN 15 mg/dL (9-20); BUN/CREATININE RATIO 11 (12-20 (CALC)); CARBON DIOXIDE 35 mmol/l (22-30); CHLORIDE 98 mmol/l (95-108); CREATININE 1.4 mg/dL (0.7-1.3); GFR 52 ML/MIN (>=60 (CALC)); GFR FOR AFR.AMER. > 60 ML/MIN (>=60 (CALC)); POTASSIUM 3.8 mmol/l (3.5-5.1); SGOT/AST 18 u/l (17-59); SODIUM 138 mmol/l (137-146); TOTAL PROTEIN 5.9 g/dL (6.3-8.2)
--- NOTE | 2019-07-29 07:30 | NUR ---
RECIEVED REPORT FROM GREGORIO CARO. PT RESTING IN SEMI FOWLERS POSITION. BREATHING IS EVEN AND UNLABORED ON ROOM AIR. #20 IN THE RFA IS RUNNING KVO, SITE APPEARS HEALTHY AND PATENT. PT DENIES ANY PAIN OR DISCOMFORTS AT THIS TIME.ALL SAFTEY PERCAUTIONS IN PLACE WITH THE CALL LIGHT IN REACH, ENCOURAGED TO CALL FOR ASSISTANCE. WILL CONTINUE TO MONITOR .
[2019-07-29 08:00] VITALS: BP 108/69
--- NOTE | 2019-07-29 08:00 | NUR ---
ASSESMET AND VITALS OBTAINED. BP 108/69, HR 90, AND O2 95% ON ROOM AIR. HEART RHYTHM NORMAL, BREATH SOUNDS CLEAR, BOWEL SOUNDS ACTIVE IN ALL QUADRANTS. RADIAL PULSES STRONG, PEDAL PULSES WEAK. 2+ EDEMA IN LOWER EXTERMITIES, LEFT APPEARS TO BE SLIGHTLY LESS EDEMATOUS. SKIN IS COOL AND DRY. DRESSINGS ARE CLEAN, DRY AND INTACT. IV RUNNING AT 20 ML, SITE APPEARS HEALTHY AND PATENT. PT DENIES ANY PAIN OR DISCOMFORTS AT THIS TIME. ALL SAFTEY PRECAUTIONS IN PLACE WITH THE CALL LIGHT IN REACH. ENCOURAGED PT TO CALL FOR ASSISTANCE. WILL CONTINUE TO MONIOTR.
--- NOTE | 2019-07-29 11:13 | NUR ---
AT BEDSIDE DISCUSSING POC.
--- NOTE | 2019-07-29 12:00 | NUR ---
PT RESTING IN RECYLINER WATCHING TV. BREATHING IS EVEN AND UNLABORED. PT DENIES ANY PAIN OR DISCOMFORTS AT THIS TIME. ALL SAFTEY PRECAUTIONS IN PLACE WITH CALL LIGHT IN REACH, PT ENCOURAGED TO CALL FOR ASSISTANCE. WILL CONTINUE TO MONITOR.
[2019-07-29 15:18] VITALS: BP 119/76
--- NOTE | 2019-07-29 16:03 | NUR ---
PT SLEPPING IN SEMI FOWLERS POSTION. BREATHING IS EVEN AND UNLABORED ON ROOM AIR. NO SIGNS OF ANY PAIN OR DISCOMFORTS AT THIS TIME. IV RUNNING AT 20 ML, SITE APPEARS HEALTHY AND PATENT. ALL SAFTEY PRECAUTIONS IN PLACE WITH CALL LIGHT IN REACH, WILL CONTINUE TO MONITOR.
[2019-07-29 18:32] VITALS: BP 126/81
--- NOTE | 2019-07-29 18:32 | NUR ---
PT RESTING IN BED WATHCING TV. DRESSING CLEAN, DRY AND INTACT. CHANGED 07/29/19 ON DAY SHIFT.BREATHING IS EVEN AND UNLABORED ON ROOM AIR. IV NS RUNNING @20 ML, SITE APPEARS HEALTHY AND PATENT. PT MEDICATED WITH LORTAB @1734, PAIN NOW RATED A 7/10, PT VERBALIZES THAT THE MEDICATION IS WORKING. ALL SAFTEY PRECAUTIONS IN PLACE, WITH CALL LIGHT IN REACH. WILL CONTINUE TO MONITOR.
--- NOTE | 2019-07-29 19:00 | NUR ---
RECEIVED REPORT FROM NURSE VELZE PATIENT IS RESTING IN BED, DENIES PAIN OR DISCOMFORTS EVEN UNLABORED BREATHING CALL LIGHT AT REACH.
--- NOTE | 2019-07-29 21:00 | NUR ---
PATIENT ALERT ORIENTED ABLE TO MAKE NEEDS KNONW, WITH ONGOING IV OF NS @ 20CC/HR INFUSING WELL ON RFA LBM 5/, DRESSIN ON BUTTOCKS AND GROIN AREA CDI, DENIES PAIN AT THIS TIME, CALL LIGHT AT REACH.
--- NOTE | 2019-07-30 00:44 | NUR ---
PATIENT SITTING IN CHAIR, WATCHING TV, DENIES PAIN AND DISCOMFORTS AT THIS TIME, CALL LIGHT AT REACH.
[2019-07-30 03:39] VITALS: BP 113/78
--- NOTE | 2019-07-30 05:06 | NUR ---
PATIENT RESTING IN BED WITH EYES CLOSED EVEN UNLABORED BREATHING CALL LIGHT AT REACH.
--- NOTE | 2019-07-30 07:40 | NUR ---
RECIEVED REPORT FROM GREGORIO HERNANDEZ. PT RESTING IN SEMI FOWLERS POSITON, INTRODUCED SELF TO PT.PT REQUESTED TO GET UP AND CLEAN UP BEFORE BREAKFAS, ASSISTED PT TO BATHROOM. PT DENIES ANY PAIN OR DISCOMFORTS AT THIS TIME. ALL SAFTEY PRECAUTIONS IN PLACE. WILL CONTINUE TO MONITOR.
[2019-07-30 07:57] LABS: ANION GAP 9 (6-22 (CALC)); BUN 16 mg/dL (9-20); BUN/CREATININE RATIO 13 (12-20 (CALC)); CARBON DIOXIDE 32 mmol/l (22-30); CHLORIDE 99 mmol/l (95-108); CREATININE 1.2 mg/dL (0.7-1.3); GFR > 60 ML/MIN (>=60 (CALC)); GFR FOR AFR.AMER. > 60 ML/MIN (>=60 (CALC)); POTASSIUM 3.8 mmol/l (3.5-5.1); SODIUM 136 mmol/l (137-146)
[2019-07-30 08:00] VITALS: BP 111/77
--- NOTE | 2019-07-30 08:00 | NUR ---
ASSESSMENT COMPLETE AND VITALS OBTAINED. BP 111/77, HR 85, O2 95% ON ROOM AIR. HEART SOUNDS NORMAL, BREATH SOUNDS CLEAR, ACTIVE BOWEL SOUNDS IN ALL QUADRANTS. RADIAL PULSES STRONG. PEDAL PULSES WEAK DUE TO EDEMA. 1+ EDEMA IN THE RIGHT FOOT, 2+ EDEMA IN THE LEFT FOOT. SKIN IS COOL/DRY AND INTACT.IV RUNNING @ 20ML, SITE APPEARS HEALTHY AND PATENT. DRESSINGS CDI. PT DENIES ANY PAIN OR DISCOMFORTS AT THIS TIME.ALL SAFTEY PRECAUTIONS IN PLACE WITH CALL LIGHT IN REACH. WILL CONTINUE TO MONITOR
[2019-07-30 09:23] LABS: ALBUMIN 2.9 g/dL (3.2-5.0); ALKALINE PHOSPHATASE 114 u/l (38-126); BILIRUBIN, TOTAL 0.5 mg/dL (0.0-1.4); SGOT/AST 18 u/l (17-59); TOTAL PROTEIN 5.9 g/dL (6.3-8.2)
--- NOTE | 2019-07-30 12:44 | NUR ---
PT RESTING IN SEMI FOWLERS POSTION WATCHING TV. BREATHING IS EVEN AND UNLABORED ON ROOM AIR. IV RUNNING AT 20ML, SITE APPEARS HEALTHY AND PATENT.PT DENIES ANY PAIN OR DISCOMFORTS AT THIS TIME. ALL SAFTEY PREACUTIONS IN PLACE WITH THE CALL LIGHT IN REACH. WILL CONTINUE TO MONITOR.
[2019-07-30 15:20] VITALS: BP 130/87
--- NOTE | 2019-07-30 15:54 | NUR ---
PT RESTING IN RECYLINER WATCHING TV. BREATHING IN EVEN AND UNLABORED. IV RUNNING AT 20 ML, SITE APPEARS HEALTHY AND PATENT. PT DENIES ANY PAIN, DISCOMFORTS OR ADDITIONAL NEEDS AT THIS TIME. ALL SAFTEY PREACUTIONS ARE IN PLACE WITH CALL LIGHT IN REACH. WILL CONTINUE TO MONITOR.
--- NOTE | 2019-07-30 17:05 | NUR ---
SURGICAL DRESSINGS CHANGED DURING THIS TIME. SURGICAL WOUNDS CLEANED, MEASURED, PHOTOGRAPHED AND DRESSED WITH WET TO DRY DRESSING ORDERED. PT TOLERATED WELL. BREATHING IS EVEN AND UNLABORED. PT DENIES ANY PAIN OR DISCOMFORTS AT THIS TIME. ALL SAF[employer] PRECAUTIONS IN PLACE WITH CALL LIGHT IN REACH, ENCOURAGE PT TO CALL FOR ASSISTANCE. WILL CONTINUE TO MONITOR.
--- NOTE | 2019-07-30 17:14 | NUR ---
SURGICAL WOUNDS MEASURED. BUTTOCK WOUND MEASURED 1 CM IN WIDTH, 4 CM IN LENGTH AND 2.5 CM IN DEPTH.PUBIC WOUND MESSURED 1.5 CM IN WIDTH, 2.5 CM IN LENGTH, AND 1.5 CM IN DEPTH. PENIS WOUND MEASURED 2.5 CM IN WIDTH, 5.5 CM IN LENGTH, AND 1 CM IN DEPTH. PICTURES WERE OBTAINED OF ALL WOUNDS. REDRESSED WOUNDS WITH WET TO DRY DRESSINGS ORDERED.
--- NOTE | 2019-07-30 18:04 | NUR ---
PT RESTING IN SEMI FOWLERS POSTITION WATCHING TV. PT STATES THAT [employer] IS WORKING. BREATHING IS EVEN AND UNLABORED. PT DENIES OF ANY OTHER DISCOMFORTS OR NEEDS AT THIS TIME. ALL SAFTEY PRECAUTIONS IN PLACE WITH CALL LIGHT WITHIN REACH. WILL CONTINUE TO MONITOR.
[2019-07-30 18:31] VITALS: BP 129/80
--- NOTE | 2019-07-30 19:00 | NUR ---
RECEIVED REPORT FROM NURSE WALLACE PATIENT IS RESTING IN BED, WATCHING TV DENIES PAIN AT THIS TIME, WITH EVEN UNLABORED BREATHING CALL LIGHT AT REACH.
--- NOTE | 2019-07-30 21:00 | NUR ---
PATIENT ALERT ORIENTED ABLE TO MAKE NEEDS KNONW, WITH ONGOING IV OF NS @ 20CC/HR INFUSING WELL ON RFA DENIES PAIN OR DISCOMFORTS AT THIS TIME, BS 224 COVERAGE GIVEN, LBM 5/, DRESSING CDI, WILL CONTINUE TO MONITOR.
--- NOTE | 2019-07-31 00:50 | NUR ---
PATIENT APPEARS TO BE SLEEPING WITH EYES CLOSED, EVEN UNLABORED BREATHING, NO DISCOMFORTS NOTED AT THIS TIME, CALL LIGHT AT REACH.
--- NOTE | 2019-07-31 02:33 | NUR ---
DRESSING CHANGED DONE ON BUTTOCKS
--- NOTE | 2019-07-31 03:56 | NUR ---
PATIENT APPEARS TO BE SLEEPING WITH EYES CLOSED,NO DISCOMFORTS NOTED AT THIS TIME, CALL LIGHT AT REACH.
[2019-07-31 04:09] VITALS: BP 125/89
[2019-07-31 05:57] LABS: HEMATOCRIT 34.3 % (39.0-50.0); HEMOGLOBIN 10.3 g/dl (14.0-18.0); IMMATURE GRANULOCYTES 0.3 % (0.0-5.0); MEAN CELL VOLUME 83.5 fL CALC (80.0-100.0); MEAN CORPUSCULAR HGB 25.1 pG CALC (26.0-32.0); NEUT# 5.46 thou/uL (1.82-7.42); RED BLOOD COUNT 4.11 mill/uL (4.70-6.10); RED CELL DISTRI WIDTH 15.3 % (11.5-15.5)
[2019-07-31 06:13] LABS: ANION GAP 12 (6-22 (CALC)); BUN 18 mg/dL (9-20); BUN/CREATININE RATIO 15 (12-20 (CALC)); CARBON DIOXIDE 29 mmol/l (22-30); CHLORIDE 99 mmol/l (95-108); CREATININE 1.2 mg/dL (0.7-1.3); GFR > 60 ML/MIN (>=60 (CALC)); GFR FOR AFR.AMER. > 60 ML/MIN (>=60 (CALC)); POTASSIUM 4.4 mmol/l (3.5-5.1); SODIUM 135 mmol/l (137-146)
--- NOTE | 2019-07-31 07:10 | NUR ---
REPORT RECEIVED FROM GREGORIO HERNANDEZ. PT RESTING IN BED SEMI FOWLERS; ALERT AND ORIENTED. C/O 8/10 PAIN TO INCISIONAL AREAS AND RIGHT FOOT. RESPIRATIONS EVEN AND UNLABORED ON ROOM AIR. LUNGS ARE CLEAR. 4+ PITTING EDEMA TO BLE. ACCU CHECK 155. PLAN OF CARE REVIEWED. PT ENCOURAGED TO VERBALIZE CONCERNS. STATES UNDERSTANDING. SAFETY MEASURES IN PLACE. CALL LIGHT WITHIN REACH.
[2019-07-31 08:00] VITALS: BP 113/78
[2019-07-31 09:01] VITALS: BP 113/78
--- NOTE | 2019-07-31 11:27 | NUR ---
PT INDEPENDENT IN ROOM AND AMBULATING. DRESSINGS TO PENIS AND BUTTOCK CDI. IV FLUIDS INFUSING WITHOUT DIFFICULTY; IV SITE APPEARS HEATLHY. NO REQUESTS OR CONCERNS AT THIS TIME.
--- NOTE | 2019-07-31 11:48 | NUR ---
DR. ALBARRAN AT BEDSIDE.
[2019-07-31] MEDS ORDERED: ZYLOPRIM100 MG PO (11:52)
[2019-07-31] MEDS ORDERED: PREDNISONE10 MG PO (11:52)
[2019-07-31] MEDS ORDERED: LEVEMIR FL100 UNIT/M SC ×2 (11:53)
--- NOTE | 2019-07-31 13:00 | NUR ---
SURGICAL INCISIONS TO PENIS AND RIGHT BUTTOCK CLEANSED AND DRESSINGS CHANGED.
--- NOTE | 2019-07-31 13:13 | NUR ---
IV site discontinued, cath intact. No edema , no redness, voices no discomfort.
--- NOTE | 2019-07-31 13:40 | NUR ---
Discharge instructions given. Patient verbalizes understanding of same. Discharged in stable condition via Wheelchair to Home with significant other. All belongings sent with pt.
== END 2019-07-31 13:36 | DRG 988 ==
LOC: ED 14:38 → ED-I 17:41 → MS2 17:54 → ED 17:54 → ED-I 17:54 → MS2 18:17 → ICU 07-20 15:55 → MS2 07-22 11:05
PROVIDERS: Family Medicine; Nurse Practitioner Family; ADMIT Internal Medicine; ATTEND Internal Medicine
PROC: 0J9B0ZZ Drainage of Perineum Subcutaneous Tissue and Fascia, Open Approach (ICD-10-PCS; principal; 2019-07-20)
DX: K61.39 Other ischiorectal abscess (principal); L03.317 Cellulitis of buttock; L03.315 Cellulitis of perineum; L03.115 Cellulitis of right lower limb; N17.9 Acute kidney failure, unspecified; E11.52 Type 2 diabetes mellitus with diabetic peripheral angiopathy with gangrene; N49.3 Fournier gangrene; I11.0 Hypertensive heart disease with heart failure; I50.9 Heart failure, unspecified; J43.9 Emphysema, unspecified; I48.0 Paroxysmal atrial fibrillation; E11.65 Type 2 diabetes mellitus with hyperglycemia; E78.5 Hyperlipidemia, unspecified; I95.81 Postprocedural hypotension; D64.9 Anemia, unspecified; E88.09 Other disorders of plasma-protein metabolism, not elsewhere classified; M10.071 Idiopathic gout, right ankle and foot; E87.79 Other fluid overload; F17.200 Nicotine dependence, unspecified, uncomplicated; B96.89 Other specified bacterial agents as the cause of diseases classified elsewhere; B95.62 Methicillin resistant Staphylococcus aureus infection as the cause of diseases classified elsewhere; Z79.84 Long term (current) use of oral hypoglycemic drugs; Z91.19 Patient's noncompliance with other medical treatment and regimen; Z53.20 Procedure and treatment not carried out because of patient's decision for unspecified reasons; Z11.59 Encounter for screening for other viral diseases
CPT/HCPCS: J2020; J2710; J3370; Q3014; Q9967

== ENCOUNTER 2019-08-13 14:52 | Inpatient (IN) | payer MEDICAID ==
[~2019-08-13] VITALS: Ht 175.3 cm; Wt 99.8 kg
[~2019-08-13 14:52] MED LIST changes: +LEVEMIR FL100 UNIT/M SC
--- NOTE | 2019-08-13 15:05 | NUR ---
TO ROOM VIA WHEELCHAIR FOR BEDSIDE TRIAGE
[2019-08-13 15:55] LABS: HEMATOCRIT 37.7 % (39.0-50.0); IMMATURE GRANULOCYTES 0.4 % (0.0-5.0); MEAN CELL VOLUME 84.7 fL CALC (80.0-100.0); MEAN CORPUSCULAR HGB 24.7 pG CALC (26.0-32.0); MEAN CORPUSCULAR HGB CONC 29.2 g/dL CAL (32.0-36.0); NEUT# 3.31 thou/uL (1.82-7.42); RED BLOOD COUNT 4.45 mill/uL (4.70-6.10); RED CELL DISTRI WIDTH 17.2 % (11.5-15.5)
[2019-08-13 16:09] LABS: ALKALINE PHOSPHATASE 171 u/l (38-126); ANION GAP 10 (6-22 (CALC)); BUN 20 mg/dL (9-20); BUN/CREATININE RATIO 17 (12-20 (CALC)); CARBON DIOXIDE 32 mmol/l (22-30); CHLORIDE 102 mmol/l (95-108); CREATININE 1.1 mg/dL (0.7-1.3); GFR > 60 ML/MIN (>=60 (CALC)); GFR FOR AFR.AMER. > 60 ML/MIN (>=60 (CALC)); LIPASE 143 u/l (23-300); POTASSIUM 3.9 mmol/l (3.5-5.1); SGOT/AST 31 u/l (17-59); SODIUM 140 mmol/l (137-146); TOTAL PROTEIN 6.7 g/dL (6.3-8.2)
[2019-08-13 16:10] LABS: INTERNATIONAL NORMALIZED RATIO 1.7 RATIO (0.7-1.3); PROTHROMBIN TIME 17.1 SECONDS (9.0-12.5)
--- NOTE | 2019-08-13 16:11 | NUR ---
EDP AT BEDSIDE TO DISCUSS CLINICAL PLAN. PT IN NO NOTABLE DISTRESS. VSS. PT HAS CDI DRESSING TO SUPRABUIC AREA AND AROUND BASE OF PENIS FROM SURGERY. DRESSING INTACT TO LT INNER GLUTEAL FOLD. NO DYSPNEA. PT WITH 3_ PITTING EDEMA TO BILAT LE
[2019-08-13 16:14] LABS: ALBUMIN 3.6 g/dL (3.2-5.0); BILIRUBIN, TOTAL 0.8 mg/dL (0.0-1.4)
--- NOTE | 2019-08-13 16:15 | NUR ---
PT ALLOWS FLU SWAB BUT ADAMENTLY DECLINES COVID SWAB. PT STATES "I HAD THAT WHILE I WAS HERE AND NOBODY IS DOING THAT AGAIN".
--- NOTE | 2019-08-13 16:20 | NUR ---
PT GIVEN URINAL AND IV LASIX ORDERED. PT UPDATED ON POC.
--- NOTE | 2019-08-13 17:00 | NUR ---
EMPTIED URINAL OF 400CC CLEAR DARK YELLOW URINE. PT DENIES PAIN OR SOB. DIMMED LIGHTS FOR COMFORT.
[2019-08-13 17:31] LABS: URINE BILIRUBIN - DIPSTICK NEGATIVE (NEGATIVE); URINE BLOOD DIPSTICK NEGATIVE (NEGATIVE); URINE COLOR YELLOW; URINE GLUCOSE - DIPSTICK NEGATIVE (NEGATIVE); URINE KETONE NEGATIVE (NEGATIVE); URINE LEUK ESTERASE NEGATIVE (NEGATIVE); URINE NITRITE - DIPSTICK NEGATIVE (Negative); URINE PH 6.5 (4.5-8.0); URINE PROTEIN - DIPSTICK NEGATIVE (NEG-TRACE); URINE SPECIFIC GRAVITY 1.015
--- NOTE | 2019-08-13 18:00 | NUR ---
UPDATED ON ADMIT, PT CONTIMUES TO REFUSE COVID SWAB. EDP UPDATED
--- NOTE | 2019-08-13 18:55 | NUR ---
TRANSPORTED TO [place] VIA ON TELE IN NO DISTRESS.
--- NOTE | 2019-08-13 19:15 | NUR ---
PT ARRIVED TO MED SURG UNIT APPEARS IN STABLE CONDITION. PT ACCOMPANIED BY ED NURSE AND TRANSPORTED VIA WC. PT SELF AMUBULATED TO CHAIR AND IS EATING FOOD BROUGHT UP WITH HIM. WILL FOLLOW-UP W/WEIGHT, ADMISSION. PT HAS BEEN ORIENTED TO ROOM, CALL LIGHT, TV AND INSTRUCTED TO CALL.
[2019-08-13 19:37] VITALS: BP 135/72
--- NOTE | 2019-08-13 19:55 | NUR ---
PT MEDICATED ORDERS WERE ORDERED WHILE PT WAS IN ED. PT IS UP WALKING AROUND ROOM ASKING FOR FOOD.
[2019-08-13 23:37] VITALS: BP 104/75
--- NOTE | 2019-08-14 01:30 | NUR ---
PT SLEEPING, NO S/O DISTRESS NOTED.
--- NOTE | 2019-08-14 04:38 | NUR ---
PT HAS BEEN AWAKE WATCHING TV. CAME TO HALLWAY AND ASKED FOR EXTRA SHEET, STATES THE BLANKET "ITCHES" HIM. NO S/O DISTRESS. REPAIR SPECIALIST ASSISTED PT SET UP BEDDING, EMPTIED URINAL OF 400CC OF DARK CLEAR YELLOW URINE. PT DENIED ANY OTHER NEEDS STATING HE IS GOING TO "TAKE A NAP."
[2019-08-14 04:41] VITALS: BP 103/66
--- NOTE | 2019-08-14 07:52 | NUR ---
SHIFT CHANGE REPORT, PT AWAKE ALERT AND ORIENTED RESTING IN BED, NO C/O DISCOMFORT AT THIS TIME, TELE MONITOR IN PLACE, CALL CUELLO IN REACH.
[2019-08-14 08:45] VITALS: BP 102/72
[2019-08-14 09:44] LABS: BARBITURATES NEGATIVE (NEGATIVE); COCAINE POSITIVE (NEGATIVE); METHADONE NEGATIVE (NEGATIVE); TETRAHYDROCANNABIONOL NEGATIVE (NEGATIVE); TRICYLIC ANTIDEPRESSANTS NEGATIVE (NEGATIVE)
[2019-08-14 09:51] LABS: OXCYCODONE NEGATIVE (NEGATIVE)
--- NOTE | 2019-08-14 11:15 | NUR ---
AMBULATING HALLWAYS AT THIS TIME, ALL NEEDS ADDRESSED.
[2019-08-14 11:59] VITALS: BP 103/78
--- NOTE | 2019-08-14 12:00 | NUR ---
HAVING MEAL, NO NEW COMPLAINS, ALL NEEDS ADDRESSED.
--- NOTE | 2019-08-14 16:00 | NUR ---
EET WRAPED FROM TOES TO KNEE WITH KERLIX AND ELINA WRAP PER MD'S ORDER TO RELIEVE EDEMA, PT ALSO ENCOURAGED TO KEEP LEGS ELEVATED.
--- NOTE | 2019-08-14 16:01 | NUR ---
AMBULATING IN ROOM AND HALLWAYS AT THIS TIME, REQUESTING "SOETHING" THE DR TOLD HIM ABOUT THIS AM FOR HIS LEGS, NO ORDER FOUND, WILL INVESTIGATE MORE SERGEI TO ADDRESS CONCERNS.
--- NOTE | 2019-08-14 19:05 | NUR ---
REPORT FROM RAMSES PERKINS. PT NOTED UP AMBULATING ROOM. NO APPARENT DISTRESS NOTED. PT DENIES ANY PAIN OR SOB. LEG WRAPS TO BLE CDI. HABILITATION ASSISTANT IN PLACE. IV SITE APPEARS HEALTHY. DISCUSSED POC. PT VERBALIZED UNDERSTANDING. CALL LIGHT WITHIN REACH. WILL CONTINUE TO MONITOR.
--- NOTE | 2019-08-14 20:07 | NUR ---
FROZEN DINNER PROVIDED PT STATES HE DID NOT LIKE THE LASAGNA THAT WAS SERVED FOR DINNER.
--- NOTE | 2019-08-14 23:39 | NUR ---
PT RESTING IN BED WITH EYES CLOSED. NO APPARENT DISTRESS NOTED. CALL LIGHT WITHIN REACH. WILL CONTINUE TO MONITOR.
[2019-08-15] VITALS (7 sets, daily range): BP systolic 93–132; BP diastolic 67–93
--- NOTE | 2019-08-15 03:44 | NUR ---
PT RESTING IN BED WITH EYES CLOSED. NO APPARENT DISTRESS NOTED. CALL LIGHT WITHIN REACH. WILL CONTINUE TO MONITOR.
--- NOTE | 2019-08-15 09:00 | NUR ---
PT IS AWAKE, ALERT, ORIENTED X 3, AMBULATORY IN ROOM. DRESSINGS CHANGED TO PENIS AND PERIRECTAL SITES, APPEAR HEALING WELL. EDEMA IS 2+ BLE. NO DIFFICULTY BREATHING, RA.
--- NOTE | 2019-08-15 13:48 | NUR ---
PT SEEN AT REST IN THE ROOM, NO DISTRESS, NO COMPLAINTS.
[2019-08-15 14:55] LABS: ANION GAP 11 (6-22 (CALC)); BUN 19 mg/dL (9-20); BUN/CREATININE RATIO 16 (12-20 (CALC)); CARBON DIOXIDE 29 mmol/l (22-30); CHLORIDE 99 mmol/l (95-108); CREATININE 1.2 mg/dL (0.7-1.3); GFR > 60 ML/MIN (>=60 (CALC)); GFR FOR AFR.AMER. > 60 ML/MIN (>=60 (CALC)); POTASSIUM 3.8 mmol/l (3.5-5.1); SODIUM 134 mmol/l (137-146)
--- NOTE | 2019-08-15 18:12 | NUR ---
PT PROVIDED TYLENOL FOR PAIN RELIEF TO PENILE AREA. NO CHANGE IN STATUS, PT HOPES TO BE ABLE TO GO HOME TOMORROW.
--- NOTE | 2019-08-15 19:15 | NUR ---
REPORT FROM KEVIN PERKINS. PT SITTING AT END OF RANDALL WITH MASK ON LOOKING OUT WINDOW. NO APPARENT DISTRESS NOTED. PT DENIES ANY PAIN OR DISCOMFORT. DISCUSSED POC, PT VERBALIZED UNDERSTANDING. PT REQUESTING DRESSING TO BE REINFORCED WHEN HE RETURNS TO ROOM. WILL ASSESS WHEN PT RETURNS TO ROOM. DEBUG TECHNICIAN IN PLACE. IV SITE APPEARS HEALTHY. FRANCOISE HOSE ON AT THIS TIME. WILL CONTINUE TO MONITOR.
--- NOTE | 2019-08-15 21:26 | NUR ---
PT MEDICATED ORDERED. ASSESSMENT COMPLETE. DRESSING TO PENIS/GROIN AREA REINFORCED. PT NOT ABLE TO RETRACT FORESKIN AND CLEAN, PERICARE PROVIDED BY ENVIRONMENTAL SERVICES TECHNICIAN. SNACK PROVIDED AT THIS TIME. CALL LIGHT WITHIN REACH. WILL CONTINUE TO MONITOR.
[2019-08-16] VITALS (8 sets, daily range): BP systolic 83–111; BP diastolic 55–77
--- NOTE | 2019-08-16 01:26 | NUR ---
PT RESTING IN BED WITH EYES CLOSED. NO APPARENT DISTRESS NOTED. CALL LIGHT WITHIN REACH. WILL CONTINUE TO MONITOR.
[2019-08-16 05:36] LABS: HEMATOCRIT 37.3 % (39.0-50.0); MEAN CELL VOLUME 83.6 fL CALC (80.0-100.0); MEAN CORPUSCULAR HGB 24.7 pG CALC (26.0-32.0); MEAN CORPUSCULAR HGB CONC 29.5 g/dL CAL (32.0-36.0); RED BLOOD COUNT 4.46 mill/uL (4.70-6.10); RED CELL DISTRI WIDTH 17.2 % (11.5-15.5)
--- NOTE | 2019-08-16 05:51 | NUR ---
FIELD PLACEMENT DIRECTOR REAPPLIED ELINA WRAPS TO LEGS, PT NOT HAPPY WITH [facility]. NO APPARENT DISTRESS NOTED. WILL CONTINUE TO MONITOR
[2019-08-16 05:56] LABS: ALBUMIN 3.4 g/dL (3.2-5.0); ALKALINE PHOSPHATASE 158 u/l (38-126); ANION GAP 13 (6-22 (CALC)); BUN 19 mg/dL (9-20); BUN/CREATININE RATIO 15 (12-20 (CALC)); CARBON DIOXIDE 29 mmol/l (22-30); CHLORIDE 99 mmol/l (95-108); CREATININE 1.2 mg/dL (0.7-1.3); GFR > 60 ML/MIN (>=60 (CALC)); GFR FOR AFR.AMER. > 60 ML/MIN (>=60 (CALC)); POTASSIUM 4.1 mmol/l (3.5-5.1); SGOT/AST 31 u/l (17-59); SODIUM 137 mmol/l (137-146); TOTAL PROTEIN 6.2 g/dL (6.3-8.2)
--- NOTE | 2019-08-16 09:00 | NUR ---
PT SEEN AWAKE, ALERT, ORIENTED X 3, AMBULATORY IN ROOM. NO DISTRESS, BUT PT STATES THAT HE BECOMES SHORT OF BREATH WITH MINIMAL ACTIVITY. DR ALBARRAN IN ROOM TO REVIEW FINDINGS OF ECHO.
--- NOTE | 2019-08-16 13:07 | NUR ---
PT DISAPPOINTED THAT HE WILL NOT BE DISCHARGED HOME TODAY. PT CONTINUES AMBULATING IN HALLWAY AND ROOM DESIRED. NO SOB, NO CP.
--- NOTE | 2019-08-16 16:13 | NUR ---
PT WITH DRESSINGS CHANGED, WILL ATTEMPT TO NAP BEFORE SUPPER.
--- NOTE | 2019-08-16 19:05 | NUR ---
REPORT FROM KEVIN PERKINS. PT SITTING AT END OF RANDALL WITH MASK ON LOOKING OUT WINDOW. NO APPARENT DISTRESS NOTED. PT DENIES ANY PAIN OR DISCOMFORT. DISCUSSED POC, PT VERBALIZED UNDERSTANDING. INSIDE SALES MANAGER IN PLACE. IV SITE APPEARS HEALTHY. COMPRESSION WRAPS NOTED TO BLE. WILL CONTINUE TO MONITOR.
--- NOTE | 2019-08-16 23:26 | NUR ---
COMPRESSION WRAPS REMOVED UPON REQUEST. EDUCATED PT AND ENCOURAGED LEG ELEVATION WHILE WRAPS OFF. BP CURRENTLY 83/55 HR 65. FOOT OF BED ELEVATED AND PT PUT IN MILD TRANDELENBURG. PT ALSO HAD 6 BEAT RUN OF VTACH, ASYMPTOMATIC AT THIS TIME, PHYSICIAN MADE AWARE. CALL LIGHT WITHIN REACH. WILL CONTINUE TO MONITOR.
--- NOTE | 2019-08-16 23:26 | NUR ---
COMPRESSION WRAPS REMOVED UPON REQUEST. EDUCATED PT AND ENCOURAGED LEG ELEVATION WHILE WRAPS OFF. BP CURRENTLY 83/55 HR 65. FOOT OF BED ELEVATED AND PT PUT IN MILD TRANDELENBURG. PT ALSO HAD 6 BEAT RUN OF VTACH, ASYMPTOMATIC AT THIS TIME. CALL LIGHT WITHIN REACH. WILL CONTINUE TO MONITOR.
--- NOTE | 2019-08-16 23:57 | NUR ---
BP NOW 99/69 HR 81. NO APPARENT DISTRESS NOTED. WILL CONTINUE TO MONITOR.
--- NOTE | 2019-08-17 03:29 | NUR ---
PT RESTING IN BED WITH EYES CLOSED. NO APPARENT DISTRESS NOTED. CALL LIGHT WITHIN REACH. WILL CONTINUE TO MONITOR.
[2019-08-17 04:12] VITALS: BP 95/67
[2019-08-17 06:40] LABS: ANION GAP 8 (6-22 (CALC)); BUN 18 mg/dL (9-20); BUN/CREATININE RATIO 16 (12-20 (CALC)); CARBON DIOXIDE 32 mmol/l (22-30); CHLORIDE 98 mmol/l (95-108); CREATININE 1.1 mg/dL (0.7-1.3); GFR > 60 ML/MIN (>=60 (CALC)); GFR FOR AFR.AMER. > 60 ML/MIN (>=60 (CALC)); POTASSIUM 3.6 mmol/l (3.5-5.1); SODIUM 135 mmol/l (137-146)
[2019-08-17 07:20] VITALS: BP 101/69
--- NOTE | 2019-08-17 07:20 | NUR ---
PT AMBULATING IN ROOM, NO SIGNS OF DISTRESS NOTED, RESP EVEN AND UNLABORED. PT SAT ON SIDE OF BED, VITALS OBTAINED. PT STATES THE SWELLING HAS GONE DOWN TO LEGS, NOTED +1 PITTING EDEMA, PT REQUESTING LEGS BE RE-WRAPPED INFORMED PT LARD REFINER WILL RETURN TO WRAP BLE, PT AGREED. ASSESSMENT COMPLETED, NOTED BANDAID TO BUTTOCK CDI, DRESSING TO PELVIC REGION CDI AND DRESSING TO PENIS SHAFT CDI; CALL LIGHT IN REACH,CONTINUE TO MONITOR.
--- NOTE | 2019-08-17 08:43 | NUR ---
SALES PRODUCT MANAGER RETURNED TO BEDSIDE TO WRAP BLE, PT AMBULATED TO BED, BLE WRAPPED WITH KERLEX AND ELINA WRAP FOR COMPRESSION. CALL LIGHT IN REACH,CONTINUE TO MONITOR.
[2019-08-17 10:30] VITALS: BP 96/68
--- NOTE | 2019-08-17 15:04 | NUR ---
PT SITTING AT END OF HALLWAY, NO SIGNS OF DISTRESS NOTED, RESP EVEN AND UNLABORED. CONTINUE TO MONITOR.
[2019-08-17 15:30] VITALS: BP 114/85
--- NOTE | 2019-08-17 18:09 | NUR ---
PT SITTING ON SIDE OF BED EATING DINNER, NO SIGNS OF DISTRESS NOTED, RESP EVEN AND UNLABORED. CALL LIGHT IN REACH,CONTINUE TO MONITOR.
[2019-08-17 19:17] VITALS: BP 93/55
--- NOTE | 2019-08-17 20:26 | NUR ---
PT MEDICATED ORDERS PROVIDE, ASSESSMENT COMPLETED AT THIS TIME. PT ASKED FOR COMPRESSION DRESSINGS TO BE REMOVED FROM BLE "FOR AWHILE TO AIR OUT." DRESSINGS REMOVED REQUESTED. EDEMA TO BLE 1+ AT THIS TIME.
--- NOTE | 2019-08-17 23:05 | NUR ---
PT ASKED FOR BLE TO BE REWRAPPED W/KURLEX AND ELINA BANDAGES PREVIOUSLY WRAPPED/PROVIDED AT THIS TIME. PT ASKING FOR ICE COKE/PROVIDED. HE IS WATCHING TV AND DENIES ANY OTHER NEEDS AT THIS TIME.
[2019-08-17 23:48] VITALS: BP 124/83
--- NOTE | 2019-08-18 02:00 | NUR ---
PT AMBULATING HALLWAY AND SITTING AT END OF THE RANDALL. DENIES ANY NEEDS.
[2019-08-18 03:57] VITALS: BP 94/57
--- NOTE | 2019-08-18 05:25 | NUR ---
PT SLEEPING, NO S/O DISTRESS NOTED.
--- NOTE | 2019-08-18 08:00 | NUR ---
PT RESTING IN BED WATCHING TV, NO SIGNS OF DISTRESS NOTED, RESP EVEN AND UNLABORED. PT ALERT AND ORIENTED X3, DISCUSSED POC, DRESSINGS TO BLE CDI, DRESSING TO PENIS CDI, ASSESSMENT COMPLETED, CALL LIGHT IN REACH,CONTINUE TO MONITOR.
[2019-08-18 08:01] VITALS: BP 112/80
--- NOTE | 2019-08-18 10:16 | NUR ---
PT SITTING AT END OF HALLWAY, NO SIGNS OF DISTRESS NOTED, RESP EVEN AND UNLABORED. CALL LIGHT IN REACH,CONTINUE TO MONITOR.
[2019-08-18 10:42] VITALS: BP 99/67
[2019-08-18 15:24] VITALS: BP 118/85
--- NOTE | 2019-08-18 15:53 | NUR ---
MELISA FROM CASE MANAGMENT DISCUSSING STATUS OF LIFE VEST WITH PT
[2019-08-18 18:55] VITALS: BP 105/75
--- NOTE | 2019-08-18 19:05 | NUR ---
PT SITTING AT THE END OF THE HALLWAY LOOKING OUT THE WINDOW. NO S/O DISTRESS NOTED. DENIES ANY NEEDS.
--- NOTE | 2019-08-18 21:56 | NUR ---
PT MEDICATED ORDERS PROVIDE. PT REQUESTED SNACK/PROVIDED. MEDICATION SCHEDULE DISCUSSED AT THIS TIME, PT'S QUESTIONS ANSWERED REGARDING MEDICATIONS NEED AND SCEDULE. VERBALIZED UNDERSTANDING. PT REPORTED BEING "TIRED AND WAS NOT WANTING TO TAKE LASIX TONIGHT, BUT AGREED AFTER PURPOSE AND OUTCOMES WERE DISCUSSED. PT DENIES ANY OTHER NEEDS AT THIS TIME, BUT HAS BEEN ENCOURAGED TO CALL NEEDS ARISE.
[2019-08-18 23:45] VITALS: BP 96/61
--- NOTE | 2019-08-19 00:32 | NUR ---
PT SLEEPING, NO S/O DISTRESS NOTED.
[2019-08-19 04:15] VITALS: BP 102/71
--- NOTE | 2019-08-19 05:23 | NUR ---
NEW IV SITE ACCESS OBTAINED, OLD IV REMOVED/SITE APPEARS HEALTHY. BLE WRAPPED W/COMPRESSION WRAPS. PT WATCHING THE NEWS W/FEET ELEVATED. PT ASKING FOR MORE ICE/PROVIDED. DENIES ANY OTHER NEEDS AT THIS TIME. CALL LIGHT IN HAND.
--- NOTE | 2019-08-19 08:00 | NUR ---
RECIEVED REPORT FROM GREGORIO DEJESUS . PT SITTING UP IN CHAIR EATING BREAKFAST UPON ENTERING ROOM. INTRODUCED SELF TO PT AND DISCUSSED POC.PT IS A/O X3 AND AMBULATORY. ASSESSMENT AND VITALS OBTAINED. BP 105/72, HR 90, O2 98% ON ROOM AIR. HEART RHYTHM IS NORMAL, BOWEL SOUNDS ARE ACTIVE IN ALL QUADRANTS, LOWER LUNG SOUNDS ARE CLEAR AND UPPER LUNG SOUNDS HAVE WHEEZING ON EXHALING.PT DESCRIBED A 8/10 PAIN IN LEFT FOOT, SUGGESTED TYLENOL AND PT AGREED, ADMINISTERED WITH MORNING MEDS. RADIAL PULSES ARE STRONG WITH NORMAL CAPILLARY REFILL.UNABLE TO FEEL PEDAL PULSES DUE TO COMPRESSION DRESSINGS ON LOWER EXTREMITIES, CAPILLARY REFILL ARE NORMAL. DRESSINGS ON BOTH PENIS AND BUTTOCK ARE CDI, CHANGED 08/18/19.PT DENIES ANY OTHER PAINS OR DISCOMFORTS AT THIS TIME. ALL SAFTEY PRECAUTIONS IN PLACE WITH CALL LIGHT IN REACH. WILL CONTINUE TO MONITOR
[2019-08-19 08:08] VITALS: BP 105/72
--- NOTE | 2019-08-19 09:58 | NUR ---
AT BEDSIDE DISCUSSING POC.
[2019-08-19 10:45] VITALS: BP 101/67
--- NOTE | 2019-08-19 14:41 | NUR ---
PT RESTING IN SEMI FOWLERS POSITION WATCHING TV. PT DENIES ANY PAIN OR DISCOMFORTS AT THIS TIME. ALL SAFTEY PRECAUTIONS IN PLACE WITH CALL LIGHT IN REACH. WILL CONTINUE TO MONITOR.
[2019-08-19 14:55] VITALS: BP 104/64
--- NOTE | 2019-08-19 15:57 | NUR ---
PT UP WALKING AROUND ROOM. BREATHING IS EVEN AND UNLABORED. PT DENIES ANY PAIN OR DISCOMFORTS AT THIS TIME. ALL SAFTEY PRECAUTIONS IN PLACE WITH CALL LIGHT IN REACH, ENCOURAGED PT TO CALL FOR ASSISTANCE. WILL CONTINUE TO MONITOR.
--- NOTE | 2019-08-19 16:02 | NUR ---
LIFE VEST REPRESENATIVE DEANDRA AT BEDSIDE FITTING PT FOR LIFE VEST.
--- NOTE | 2019-08-19 17:35 | NUR ---
DISCHARGE INSTRUCTIONS AND EDUCATION GIVEN TO PT, PT VERBALIZED UNDERSTANDING.PT IV REMOVED, PT TOLERATED WELL. AWAITING TRANSPORTATION AT THIS TIME. WILL CONTINUE TO MONITOR.
--- NOTE | 2019-08-19 18:03 | NUR ---
Discharge instructions given. Patient verbalizes understanding of same. Discharged in stable condition via Ambulatory to Home with family. All belongings sent with pt. PT AMBULATED WITH A STEADY GAIT TO [facility] FOR DISCHARGE HOME ACCOMPANIED BY GRACE WALLACE;PT DISCHARGED HOME WITH [employer].
== END 2019-08-19 18:03 | DRG 293 ==
LOC: ED 14:52 → ED-I 17:00 → ED 17:12 → MS2 17:13 → ED-I 17:13 → MS2 18:22
PROVIDERS: Family Medicine; Nurse Practitioner Family; ADMIT Internal Medicine; ATTEND Internal Medicine
DX: I11.0 Hypertensive heart disease with heart failure (principal); I50.23 Acute on chronic systolic (congestive) heart failure; J43.9 Emphysema, unspecified; E11.9 Type 2 diabetes mellitus without complications; I48.0 Paroxysmal atrial fibrillation; E78.5 Hyperlipidemia, unspecified; F14.10 Cocaine abuse, uncomplicated; F17.200 Nicotine dependence, unspecified, uncomplicated; Z79.4 Long term (current) use of insulin; Z20.828 Contact with and (suspected) exposure to other viral communicable diseases

== ENCOUNTER 2019-09-18 02:55 | Observation (INO) | payer MEDICAID ==
[~2019-09-18] VITALS: Ht 175.3 cm; Wt 104.8 kg
--- NOTE | 2019-09-18 02:58 | NUR ---
PT STRAIGHT BACK VIA WHEELCHAIR TO ROOM 10 AND TRIAGED.
--- NOTE | 2019-09-18 02:59 | NUR ---
PT. TO ROOM 10 WITH C/O FEELING SOB SINCE YESTERDAY. O2 SAT 100% ON RA. BILATERAL LUNG SALAS ARE CRACKLES IN THE LOWER LOBES. ABD. DISTENDED. PT. STATES HE HAS A PMH OD COPD AND CHF.
--- NOTE | 2019-09-18 03:20 | NUR ---
BREATHING TREATMENT GIVEN.
[2019-09-18 03:47] LABS: HEMATOCRIT 38.9 % (39.0-50.0); HEMOGLOBIN 11.3 g/dl (14.0-18.0); IMMATURE GRANULOCYTES 0.4 % (0.0-5.0); MEAN CELL VOLUME 81.4 fL CALC (80.0-100.0); MEAN CORPUSCULAR HGB 23.6 pG CALC (26.0-32.0); NEUT# 4.83 thou/uL (1.82-7.42); RED BLOOD COUNT 4.78 mill/uL (4.70-6.10); RED CELL DISTRI WIDTH 16.9 % (11.5-15.5)
--- NOTE | 2019-09-18 03:59 | NUR ---
O2 ON AT 2 LIT/NC. STATTING 100% ON RA. PT. COUGHING UP FLEM. NO C/O CP OFFERED.
[2019-09-18 04:00] LABS: ALBUMIN 3.6 g/dL (3.2-5.0); ALKALINE PHOSPHATASE 136 u/l (38-126); BILIRUBIN, TOTAL 0.8 mg/dL (0.0-1.4); BUN 26 mg/dL (9-20); BUN/CREATININE RATIO 23 (12-20 (CALC)); CHLORIDE 102 mmol/l (95-108); CREATININE 1.1 mg/dL (0.7-1.3); GFR > 60 ML/MIN (>=60 (CALC)); GFR FOR AFR.AMER. > 60 ML/MIN (>=60 (CALC)); SGOT/AST 38 u/l (17-59); SODIUM 136 mmol/l (137-146); TOTAL PROTEIN 6.5 g/dL (6.3-8.2)
[2019-09-18 04:01] LABS: ANION GAP 15 (6-22 (CALC)); CARBON DIOXIDE 24 mmol/l (22-30); POTASSIUM 4.8 mmol/l (3.5-5.1)
[2019-09-18 04:38] LABS: URINE BILIRUBIN - DIPSTICK NEGATIVE (NEGATIVE); URINE BLOOD DIPSTICK NEGATIVE (NEGATIVE); URINE COLOR YELLOW; URINE GLUCOSE - DIPSTICK NEGATIVE (NEGATIVE); URINE KETONE NEGATIVE (NEGATIVE); URINE NITRITE - DIPSTICK NEGATIVE (Negative); URINE PH 5.5 (4.5-8.0); URINE PROTEIN - DIPSTICK NEGATIVE (NEG-TRACE); URINE UROBILINOGEN - DIPSTICK 0.2 E.U./dL (0.2)
[2019-09-18 04:40] LABS: URINE LEUK ESTERASE TRACE (NEGATIVE)
--- NOTE | 2019-09-18 04:49 | NUR ---
PT. REQUESTING SOME ICE CUBES STATING, " I AM SO DRY." COUGHING LESS AT THIS TIME.
--- NOTE | 2019-09-18 05:17 | NUR ---
PT. REFUSED COVID 19 SWAB, AWARE.
--- NOTE | 2019-09-18 05:50 | NUR ---
MD IN ROOM TO DISCUSS CLINICAL FINDINGS WITH PT. VERBALIZED UNDERSTANDING. PT. INFORMED OF NEED FOR ADMISSION, VERBALIZED UNDERSTANDING.
--- NOTE | 2019-09-18 05:52 | NUR ---
PT. VOIDED APPROX. 650 ML CLEAR YELLOW URINE.
[2019-09-18 06:09] LABS: ACT PARTIAL THROMBO TIME 27.3 SECONDS (20.0-32.5); INTERNATIONAL NORMALIZED RATIO 1.3 RATIO (0.7-1.3); PROTHROMBIN TIME 13.7 SECONDS (9.0-12.5)
--- NOTE | 2019-09-18 06:50 | NUR ---
REPORT RECIEVED FROM JANUSZ RN; PT SITTING UP ON STRETCHER; ADVISED OF PENDING TRANSFER TO FLOOR WHEN BED AVAILABLE; NO S/S OF DISTRESS NOTED; DRY COUGH; MONITORING DEVICES IN PLACE; CALL LIGHT WITHIN REACH; WILL CONTINUE TO MONITOR
--- NOTE | 2019-09-18 06:58 | NUR ---
REPORT TO ENRICO PERKINS.
[2019-09-18 07:50] VITALS: BP 123/70
--- NOTE | 2019-09-18 10:50 | NUR ---
PT SITTING UP ON STRETCHER; NO S/S OF DISTRESS NOTED; PT ADVISED OF CONTINUED WAIT TIME FOR ADMISSION TO ROOM; MONITORING DEVICES IN PLACE; PT VERBALIZES UNDERSTANDING; VSS; WILL CONTINUE TO MONITOR
--- NOTE | 2019-09-18 11:30 | NUR ---
PT TO ROOM 277. PT ORIENTED TO ROOM AND UNIT. PT IS ALERT AND ORIENTED X3. IV PATENT X1. VSS. CALL LIGHT IN REACH. WILL CONTINUE TO MONITOR.
--- NOTE | 2019-09-18 11:40 | NUR ---
Admission Note Report Given to: GREGORIO GRAHAM Transported by: Wheelchair Stretcher Transported with: X Nurse Transporter X Patent IV X O2 X Administrative Hearing Officer Location: ICU X [facility]
[2019-09-18 11:45] VITALS: BP 122/87
--- NOTE | 2019-09-18 13:48 | NUR ---
covid swab obtained right nare.
[2019-09-18 15:30] VITALS: BP 111/83
--- NOTE | 2019-09-18 15:35 | NUR ---
PT RESTING IN BED WITH EYES CLOSED. RESP ARE EVEN AND UNLABORED. NO DISTRESS NOTED. CALL LIGHT IN REACH. WILL CONTINUE TO MONITOR.
--- NOTE | 2019-09-18 19:05 | NUR ---
REPORT FROM SANTOS PERKINS. PT NOTED SITTING UP AT BEDSIDE. NO APPARENT DISTRESS NOTED. PT ALERT AND ORIENTED. DENIES ANY PAIN OR DISCOMFORT. IV SITE APPEARS HEALTHY. DISCUSSED POC. PT VERBALIZED UNDERSTANDING. SANDING LINE OPERATOR QUESTIONED PT ABOUT LIFE VEST BEING BROUGHT IN FROM HOME. PT STATES " I AM NOT DOING THAT I DON'T EVEN WEAR IT MOST OF THE TIME". EDUCATION PROVIDED TO PT ABOUT IMPORTANCE OF LIFE VEST. PT REFUSED EDUCATION STATING " IF ITS MY TIME TO GO ITS MY TIME TO GO". PT HAS NO CURRENT WANTS OR NEEDS. CALL LIGHT WITHIN REACH. WILL CONTINUE TO MONITOR.
[2019-09-18 19:25] VITALS: BP 110/79
--- NOTE | 2019-09-18 21:09 | NUR ---
PT MEDICATED ORDERED. NO APPARENT DISTRESS NOTED. SNACK PROVIDED UPON REQUEST. PT DENIES ANY PAIN OR DISCOMFORT. NO OTHER WANTS OR NEEDS. CALL LIGHT WITHIN REACH. WILL CONTINUE TO MONITOR.
[2019-09-19] VITALS (7 sets, daily range): BP systolic 88–116; BP diastolic 60–83
--- NOTE | 2019-09-19 00:09 | NUR ---
PT RESTING IN BED WITH EYES CLOSED. NO APPARENT DISTRESS NOTED. PHOTOGRAPHIC SPECIALIST IN PLACE. CALL LIGHT WITHIN REACH. WILL CONTINUE TO MONITOR.
--- NOTE | 2019-09-19 04:47 | NUR ---
PT RESTING IN BED. NO APPARENT DISTRESS NOTED. ICE PROVIDED UPON REQUEST. NO OTHER WANTS OR NEEDS. CALL LIGHT WITHIN REACH. WILL CONTINUE TO MONITOR.
[2019-09-19 06:29] LABS: ANION GAP 14 (6-22 (CALC)); BUN 26 mg/dL (9-20); BUN/CREATININE RATIO 23 (12-20 (CALC)); CARBON DIOXIDE 26 mmol/l (22-30); CHLORIDE 98 mmol/l (95-108); CREATININE 1.1 mg/dL (0.7-1.3); GFR > 60 ML/MIN (>=60 (CALC)); GFR FOR AFR.AMER. > 60 ML/MIN (>=60 (CALC)); MAGNESIUM 1.8 mg/dL (1.6-2.3); POTASSIUM 4.4 mmol/l (3.5-5.1); SODIUM 134 mmol/l (137-146)
--- NOTE | 2019-09-19 08:40 | NUR ---
ASSESSMENT IS COMPLTED: IV SITE IS FREE FROM REDNESS OR EDEMA. HR IS REG,PULSES ARE STRONG X4, ABD IS SOFT WITH ACTIVE BS. BREATH SOUNDS ARE CLEAR. TELE MONITOR IN PLACE. CONTINUE TO OSEBRVE AND MONITOR.
--- NOTE | 2019-09-19 12:08 | NUR ---
SPOKE WITH PT'S DAUGHTER RE: LIFE VEST, AND CHF., WILL TRY TO COME AND SEE PT TOMORROW.
--- NOTE | 2019-09-19 12:44 | NUR ---
PT IS RELAXING IN BED WITH NO DISTRESS NOTED. IV SITE IS FREE FROM REDNESS OR JENNIFER.
--- NOTE | 2019-09-19 16:45 | NUR ---
PT REMAINS RELAXING IN BED WITH NO DISTRESS NTOED. IV SITE IS FREE FROM REDNESS OR EDEMA.
--- NOTE | 2019-09-19 19:01 | NUR ---
REPORT FROM DEANDRA EDWARDS. PT RESTING IN BED. NO APPARENT DISTRESS NOTED. IV SITE APPEARS HEALTHY. WELT STITCHER IN PLACE. PT DENIES ANY CURRENT WANTS OR NEEDS. DISCUSSED POC. PT VERBALIZED UNDERSTANDING. CALL LIGHT WITHIN REACH. WILL CONTINUE TO MONITOR.
[2019-09-20 00:03] VITALS: BP 103/74
--- NOTE | 2019-09-20 00:56 | NUR ---
PT RESTING IN BED WITH EYES CLOSED. NO APPARENT DISTRESS NOTED. O2 VIA NC @ 2L/M. RESPIRATIONS EVEN AND UNLABORED. CALL LIGHT WITHIN REACH. WILL CONTINUE TO MONITOR.
[2019-09-20 04:06] VITALS: BP 90/73
--- NOTE | 2019-09-20 04:25 | NUR ---
PT RESTING IN BED. NO APPARENT DISTRESS NOTED. CALL LIGHT WITHIN REACH. WILL CONTINUE TO MONITOR.
[2019-09-20 05:59] LABS: ANION GAP 10 (6-22 (CALC)); BUN 30 mg/dL (9-20); BUN/CREATININE RATIO 25 (12-20 (CALC)); CARBON DIOXIDE 30 mmol/l (22-30); CHLORIDE 96 mmol/l (95-108); CREATININE 1.2 mg/dL (0.7-1.3); GFR > 60 ML/MIN (>=60 (CALC)); GFR FOR AFR.AMER. > 60 ML/MIN (>=60 (CALC)); MAGNESIUM 1.9 mg/dL (1.6-2.3); POTASSIUM 5.1 mmol/l (3.5-5.1); SODIUM 131 mmol/l (137-146)
[2019-09-20 09:30] VITALS: BP 101/78
--- NOTE | 2019-09-20 09:30 | NUR ---
ASSESSMENT IS COMPLETED: IV SITE IS FREE FROM REDNESS OR EDEMA. HR IS REG
--- NOTE | 2019-09-20 09:30 | NUR ---
ASSESSMENT IS COMPLTED: IV SITE IS FREE FROM REDNESS OR EDEMA. HR IS REG,PULSES ARE STRONG X4, ABD IS SOFT WITH ACTIVE BS. TELE MONITOR IN PLACE. CONTINUE TO OSEBRVE AND MONITOR.
[2019-09-20 10:54] VITALS: BP 106/74
--- NOTE | 2019-09-20 11:55 | NUR ---
DAUGHTER IN TO VISIT WITH PT WOULD LIKE TO SPEAK WITH ABOUT PT.
[2019-09-20] MEDS ORDERED: PREDNISONE10 MG PO (12:37)
--- NOTE | 2019-09-20 13:00 | NUR ---
PT AND FAMILY IN THE ROOM. IV SITE REMOVED FOR DISCHARGE. CATHETER INTACT. DISCHARGE INSTRUCTIONS GIVEN AND VERBALIZED UNDERSTANDING.
--- NOTE | 2019-09-20 13:30 | NUR ---
Discharge instructions given. Patient verbalizes understanding of same. Discharged in stable condition via Wheelchair to Home with family. All belongings sent with pt. PT TRUCK DOWNSTAIRS AND FAMILY IS DRIVING HIM HOME. CONTINUE TO OSBERVE AND MONITOR.
== END 2019-09-20 13:20 ==
LOC: ED 02:55 → ED-I 05:40 → ED 05:56 → ED-I 05:57 → MS2 09:03
PROVIDERS: Internal Medicine; ADMIT Internal Medicine; ATTEND Internal Medicine
DX: I11.0 Hypertensive heart disease with heart failure (principal); I50.23 Acute on chronic systolic (congestive) heart failure; J44.1 Chronic obstructive pulmonary disease with (acute) exacerbation; E78.5 Hyperlipidemia, unspecified; E11.9 Type 2 diabetes mellitus without complications; I48.0 Paroxysmal atrial fibrillation; F14.10 Cocaine abuse, uncomplicated; F17.200 Nicotine dependence, unspecified, uncomplicated; Z51.5 Encounter for palliative care; Z79.01 Long term (current) use of anticoagulants; Z79.4 Long term (current) use of insulin; Z20.828 Contact with and (suspected) exposure to other viral communicable diseases
CPT/HCPCS: G0378; J1650; Q9967

== ENCOUNTER 2020-05-07 11:08 | Inpatient (IN) | payer MEDICARE ==
[~2020-05-07] VITALS: Ht 175.3 cm; Wt 103.0 kg
--- NOTE | 2020-05-07 11:10 | NUR ---
PT TO ROOM VIA WHEELCHAIR FOR BEDSIDE TRIAGE
[2020-05-07 11:55] LABS: HEMATOCRIT 36.3 % (39.0-50.0); HEMOGLOBIN 10.7 g/dl (14.0-18.0); IMMATURE GRANULOCYTES 0.5 % (0.0-5.0); MEAN CORPUSCULAR HGB 20.7 pG CALC (26.0-32.0); MEAN CORPUSCULAR HGB CONC 29.5 g/dL CAL (32.0-36.0); NEUT# 6.7 thou/uL (1.82-7.42); RED BLOOD COUNT 5.17 mill/uL (4.70-6.10); RED CELL DISTRI WIDTH 15.2 % (11.5-15.5)
[2020-05-07 12:12] LABS: BILIRUBIN, TOTAL 0.5 mg/dL (0.0-1.4)
[2020-05-07 12:16] LABS: MEAN CELL VOLUME 70.2 fL CALC (80.0-100.0)
[2020-05-07 12:17] LABS: CREATININE 2.5 mg/dL (0.7-1.3); POTASSIUM 2.6 mmol/l (3.5-5.1); TOTAL PROTEIN 9.2 g/dL (6.3-8.2)
--- NOTE | 2020-05-07 12:29 | NUR ---
PT SEEN BY DR HAY, DESCRIBES EPISODES OF FALLING OUT. TO CT.
[2020-05-07] MEDS ORDERED: METOLAZONE2.5 MG PO (13:51)
--- NOTE | 2020-05-07 14:01 | NUR ---
PT PROVIDED ONE LITER NS, POTASSIUM PILLS X 2. PT AWARE OF PENDING ADMISSION.
--- NOTE | 2020-05-07 14:55 | NUR ---
PATIENT ARRIVED TO UNIT FROM ER. VITALS TAKEN AND RECORED
--- NOTE | 2020-05-07 14:57 | NUR ---
REPORT PROVIDED TO SERAFIN Gómez RN. PT WAS TAKEN TO ROOM 267 WITHOUT INCIDENT.
[2020-05-07 15:00] VITALS: BP 131/83
--- NOTE | 2020-05-07 16:00 | NUR ---
PATIENT AWAKE AND ALERT WITH NO EXPRESSED NEEDS AT THIS TIME
--- NOTE | 2020-05-07 17:00 | NUR ---
ALEXIS MADE AWAKE THAT PATIENT IS NOT ON SLIDING SCALE AND BG IS 301
[2020-05-07 19:00] VITALS: BP 105/70
--- NOTE | 2020-05-07 20:03 | NUR ---
PHYSICAL ASSESMENT COMPLETE. PT CURRENTLY DENIES PAIN OR DISCOMFORT. PT UP IN THE CHAIR. SCHEDULED MEDICATIONS AND PRN MEDICATION ADMINISTERED, SEE E-MAR. PT DENIES ANY NEEDS AT THIS TIME. PLAN OF CARE REVIEWED, PT DENIES QUESTIONS, VERBALIZES UNDERSTANDING. ITEMS WITHIN REACH, BED LOCKED IN LOW POSITION W/ BEDRAILS UP X2. CALL CUELLO WITHIN REACH, AGREES TO CALL PRN.
[2020-05-07 23:45] VITALS: BP 115/78
--- NOTE | 2020-05-08 00:03 | NUR ---
PT LAYING IN BED WITH EYES CLOSED, APPEARS TO BE SLEEPING, APPEARS COMFORTABLE AND IN NO DISTRESS. RESPIRATIONS REGULAR AND UNLABORED. ITEMS REMAIN WITHIN REACH, CALL CUELLO REMAINS WITHIN REACH. BED REMAINS LOCKED AND IN LOW POSITION WITH BEDRAILS UP X2. WILL CONTINUE TO MONITOR.
--- NOTE | 2020-05-08 03:46 | NUR ---
PT RESTING IN BED, NO SIGNS OF DISTRESS NOTED, RESP EVEN AND UNLABORED. PT VOICES NO NEEDS OR COMPLAINTS AT THIS TIME. CALL LIGHT IN REACH, CONTINUE TO MONITOR.
[2020-05-08 04:00] VITALS: BP 122/83
--- NOTE | 2020-05-08 04:19 | NUR ---
PT WEIGHT WAS ECORDED AT 1500 AT 209 LB. DAILY WEIGHT WAS TAKEN AT 0400 AND WEIGHT WAS 221.4 LB. PT STATES THAT HIS WEIGHT IS USUALLY AROUND 220 LB. NEW WEIGHT WAS RECORDED AT 221.4 LB.
[2020-05-08 06:26] LABS: HEMATOCRIT 31.2 % (39.0-50.0); HEMOGLOBIN 9.1 g/dl (14.0-18.0); MEAN CELL VOLUME 70.9 fL CALC (80.0-100.0); MEAN CORPUSCULAR HGB 20.7 pG CALC (26.0-32.0); MEAN CORPUSCULAR HGB CONC 29.2 g/dL CAL (32.0-36.0); RED BLOOD COUNT 4.4 mill/uL (4.70-6.10); RED CELL DISTRI WIDTH 15.2 % (11.5-15.5)
[2020-05-08 06:49] LABS: BILIRUBIN, TOTAL 0.5 mg/dL (0.0-1.4); POTASSIUM 2.7 mmol/l (3.5-5.1)
[2020-05-08 06:51] LABS: ALBUMIN 3.8 g/dL (3.2-5.0); CREATININE 1.5 mg/dL (0.7-1.3); MAGNESIUM 2.4 mg/dL (1.6-2.3); TOTAL PROTEIN 6.8 g/dL (6.3-8.2)
[2020-05-08 07:32] VITALS: BP 128/83
--- NOTE | 2020-05-08 07:32 | NUR ---
PATIENT SITTING AT BEDSIDE DENEIS ANY NEEDS AT THIS TIME CALL LIGHT IS WITHIN REACH SIDERAILS ARE UP X 2. POLICE SERGEANT DONE AT THIS TIME SEE INTERVENTIONS.
[2020-05-08 11:09] VITALS: BP 123/67
--- NOTE | 2020-05-08 12:05 | NUR ---
PATIENT LAYING IN BED AT THIS TIME STATES HIS PAIN IN HIS FEET HAS SUBSIDED DUE TO TAKING THE "GOUT" MEDICATIONS. SIDERAILS ARE UP CALL LIGHT WITHIN REACH.
[2020-05-08 15:08] VITALS: BP 92/59
--- NOTE | 2020-05-08 16:04 | NUR ---
PATIENT LAYING IN BED AT THIS TIME WITH EYES CLOSED RESPIRATION EASY AND UNLABORED AT THIS TIME. SIDERAILS ARE UP CALL LIGHT WITHIN REACH.
[2020-05-08 19:50] VITALS: BP 95/61
--- NOTE | 2020-05-08 20:00 | NUR ---
PT RESTING IN BED WITH COMPLAINT OF MODERATE PAIN TO THE TOP OF HIS RIGHT FOOT, WHERE HE WAS ASSESSED FOR POSSIBLE GOUT PAIN EARLIER TODAY. PT WAS ADMINISTERD TYLENOL, HE ALSO ASKED FOR ICE AND A SODA. NURSE RETURNED WITH THOSE ITEMS AND PT IS CURRENTLY RELAXING IN BED WATCHING TV. WILL CONTINUE TO MONITOR.
[2020-05-09] VITALS: BP 117/71
--- NOTE | 2020-05-09 | NUR ---
PT APPEARS TO BE SLEEPING. HIS PAIN HAD DECREASE SIGNIFICANTLY AFTER ADMINISTERATION OF TYLENOL. CALL LIGHT AND BELONGINGS WITHIN REACH.
[2020-05-09 03:45] VITALS: BP 107/57
--- NOTE | 2020-05-09 04:00 | NUR ---
PT RESTING WITH EYES CLOSED, APPEARS TO BE SLEEPING. NO S/S OF DISCOMFORT. WILL CONTINUE TO MONITOR.
[2020-05-09 05:16] LABS: HEMATOCRIT 28.4 % (39.0-50.0); HEMOGLOBIN 8.3 g/dl (14.0-18.0); MEAN CELL VOLUME 72.3 fL CALC (80.0-100.0); MEAN CORPUSCULAR HGB 21.1 pG CALC (26.0-32.0); MEAN CORPUSCULAR HGB CONC 29.2 g/dL CAL (32.0-36.0); RED BLOOD COUNT 3.93 mill/uL (4.70-6.10); RED CELL DISTRI WIDTH 15.2 % (11.5-15.5)
[2020-05-09 05:37] LABS: BUN 37 mg/dL (8-23); BUN/CREATININE RATIO 28 (12-20 (CALC)); CARBON DIOXIDE 33 mmol/l (22-30); CHLORIDE 91 mmol/l (95-108); CREATININE 1.3 mg/dL (0.7-1.3); GFR 56 ML/MIN (>=60 (CALC)); GFR FOR AFR.AMER. > 60 ML/MIN (>=60 (CALC)); MAGNESIUM 2.4 mg/dL (1.6-2.3); SODIUM 129 mmol/l (137-146)
[2020-05-09 05:38] LABS: ANION GAP 8 (6-22 (CALC)); POTASSIUM 3.4 mmol/l (3.5-5.1)
[2020-05-09 07:30] VITALS: BP 110/58
--- NOTE | 2020-05-09 07:30 | NUR ---
PATIENT LAYING IN BED AT THIS TIME. PATIENT STATES HIS PAIN LEVEL IS A '1" OUT OF A PAIN SCALE OF 0-10 AND THAT HIS PAIN IN ON THE TOP OF HIS FOOT (L). PATIENT ASSESSMENT DONE SEE INTERVENTIONS. CALL LIGHT WITHIN REACH SIDERAILS UP X 2.
[2020-05-09 10:40] VITALS: BP 115/63
[2020-05-09] MEDS ORDERED: KLOR-CON M2020 MEQ PO (11:53)
--- NOTE | 2020-05-09 11:54 | NUR ---
PATIENT SITTING UP IN BED EATING LUNCH AT THIS TIME. PATIENT DENIES ANY NEEDS AND STATES HE IS HAVING NO PAIN AT THIS TIME. CALL LIGHT IS WITHIN REACH SIDERAILS UP X 2. PATIENT STATED HE IS BEING D/C TODAY AND PATIENT WAS ADVISED WHEN THE ORDER IS WRITTEN WE WILL NOTIFY HIM AND GO OVER INSTRUCTIONS.
--- NOTE | 2020-05-09 13:05 | NUR ---
DISCHARGE INSTRUCTIONS GONE OVER WITH PATIENT AT THIS TIME. PATIENT VERBALIZES UNDERSTANDING OF D/C INSTRUCTIONS.
--- NOTE | 2020-05-09 13:14 | NUR ---
Discharge instructions given. Patient verbalizes understanding of same. Discharged in stable condition via Wheelchair to Home with family. All belongings sent with pt.
== END 2020-05-09 13:14 | disposition home or self-care (01) | DRG 918 ==
LOC: ED 11:08 → ED-I 12:59 → ED 13:06 → MS2 13:07
PROVIDERS: Emergency Medicine; Nurse Practitioner; ADMIT Internal Medicine; ATTEND Internal Medicine
DX: T50.2X1A Poisoning by carbonic-anhydrase inhibitors, benzothiadiazides and other diuretics, accidental (unintentional), initial encounter (principal); N17.9 Acute kidney failure, unspecified; I42.9 Cardiomyopathy, unspecified; E86.0 Dehydration; E87.6 Hypokalemia; I11.0 Hypertensive heart disease with heart failure; I50.9 Heart failure, unspecified; E11.9 Type 2 diabetes mellitus without complications; J43.9 Emphysema, unspecified; E78.5 Hyperlipidemia, unspecified; I48.0 Paroxysmal atrial fibrillation; F17.200 Nicotine dependence, unspecified, uncomplicated; M10.071 Idiopathic gout, right ankle and foot; D50.9 Iron deficiency anemia, unspecified; Z79.01 Long term (current) use of anticoagulants; Z20.822 Contact with and (suspected) exposure to COVID-19
CPT/HCPCS: J1756

== ENCOUNTER 2023-05-17 08:51 | Emergency (ER) | payer MEDICARE, MEDICAID ==
[~2023-05-17] VITALS: Ht 175.3 cm; Wt 92.9 kg
[2023-05-17] VITALS (32 sets, daily range): BP systolic 65–115; BP diastolic 42–91
[~2023-05-17 08:51] MED LIST changes: +KLOR-CON M2020 MEQ PO; +METOLAZONE2.5 MG PO; +ROBITUSSIN AC10 ML PO
[2023-05-17] MEDS ORDERED: SODIUM CHLORIDE 0.9% 1,000 ML IV ONE (09:10)
[2023-05-17 09:34] LABS: BASO% 0.4 % (0-3); HEMATOCRIT 52.4 % (39.0-50.0); IMMATURE GRANULOCYTES 0.2 % (0.0-5.0); LYMPH% 32.1 % (15-41); MEAN CELL VOLUME 85.2 fL CALC (80.0-100.0); MEAN CORPUSCULAR HGB CONC 30.5 g/dL CAL (32.0-36.0); MONO% 15.9 % (2-13); NEUT# 2.26 thou/uL (1.82-7.42); NEUT% 49.4 % (42-76); RED BLOOD COUNT 6.15 mill/uL (4.70-6.10); RED CELL DISTRI WIDTH 16.1 % (11.5-15.5)
[2023-05-17 09:53] LABS: ALBUMIN 3.7 g/dL (3.2-5.0); ALKALINE PHOSPHATASE 63 u/l (38-126); BUN 31 mg/dL (8-23); BUN/CREATININE RATIO 20 (12-20 (CALC)); CARBON DIOXIDE 29 mmol/l (22-30); CHLORIDE 106 mmol/l (95-108); CREATININE 1.5 mg/dL (0.7-1.3); GFR FOR AFR.AMER. 57 ML/MIN (>=60 (CALC)); GFR OTHER RACES 47 ML/MIN (>=60 (CALC)); POTASSIUM 4.1 mmol/l (3.5-5.1); SGOT/AST 31 u/l (19-48); TOTAL PROTEIN 6.3 g/dL (6.3-8.2)
[2023-05-17 10:09] LABS: ANION GAP 9 (6-22 (CALC)); BILIRUBIN, TOTAL 0.3 mg/dL (0.2-1.3); SODIUM 140 mmol/l (137-146)
[2023-05-17 12:22] LABS: URINE BILIRUBIN - DIPSTICK Negative (NEGATIVE); URINE BLOOD DIPSTICK Negative (NEGATIVE); URINE GLUCOSE - DIPSTICK >=1000 mg/dL (NEGATIVE); URINE KETONE Negative (NEGATIVE); URINE LEUK ESTERASE Trace (NEGATIVE); URINE NITRITE - DIPSTICK Negative (Negative); URINE PROTEIN - DIPSTICK Negative (NEG-TRACE)
[2023-05-17 12:23] LABS: URINE COLOR Yellow
== END 2023-05-17 15:49 | disposition home or self-care (01) ==
LOC: ED 08:51
PROVIDERS: Family Medicine
DX: I95.2 Hypotension due to drugs (principal); T44.7X5A Adverse effect of beta-adrenoreceptor antagonists, initial encounter; I11.0 Hypertensive heart disease with heart failure; I50.9 Heart failure, unspecified; E11.9 Type 2 diabetes mellitus without complications; F17.210 Nicotine dependence, cigarettes, uncomplicated; Z86.711 Personal history of pulmonary embolism

== ENCOUNTER 2024-05-09 10:06 | Emergency (ER) | payer MEDICARE ==
[~2024-05-09] VITALS: Ht 175.3 cm; Wt 86.1 kg
[2024-05-09] VITALS (11 sets, daily range): BP systolic 80–117; BP diastolic 56–98
[2024-05-09] MEDS ORDERED: SODIUM CHLORIDE 0.9% 1,000 ML IV ONE (11:05)
[2024-05-09] MEDS ORDERED: IPRATROPIUM-Albuterol 0.5MG-2.5MG/3 ML NEB ONE (11:05)
[2024-05-09 11:31] LABS: BASO% 0.6 % (0-3); EOS% 2.2 % (0-8); HEMOGLOBIN 16.7 g/dl (14.0-18.0); LYMPH% 27.8 % (15-41); MEAN CORPUSCULAR HGB 26.3 pG CALC (26.0-32.0); MEAN CORPUSCULAR HGB CONC 30.9 g/dL CAL (32.0-36.0); MONO% 11.9 % (2-13); NEUT# 2.07 thou/uL (1.82-7.42); NEUT% 57.5 % (42-76); RED BLOOD COUNT 6.35 mill/uL (4.70-6.10); RED CELL DISTRI WIDTH 14.7 % (11.5-15.5); URINE BILIRUBIN - DIPSTICK Negative (NEGATIVE); URINE BLOOD DIPSTICK Negative (NEGATIVE); URINE COLOR Yellow; URINE GLUCOSE - DIPSTICK 500 mg/dL (NEGATIVE); URINE KETONE Negative (NEGATIVE); URINE LEUK ESTERASE Negative (NEGATIVE); URINE NITRITE - DIPSTICK Negative (Negative); URINE PROTEIN - DIPSTICK Negative (NEG-TRACE); URINE UROBILINOGEN - DIPSTICK 0.2 E.U./dL (0.2)
[2024-05-09 11:58] LABS: ALBUMIN 4.2 g/dL (3.2-5.0); CREATININE 1.5 mg/dL (0.7-1.3); POTASSIUM 3.8 mmol/l (3.5-5.1); TOTAL PROTEIN 7.2 g/dL (6.3-8.2)
[2024-05-09 12:31] LABS: BILIRUBIN, TOTAL 0.7 mg/dL (0.2-1.3)
[2024-05-09] MEDS ORDERED: PREDNISONE50 MG PO (13:30)
[2024-05-09] MEDS ORDERED: IPRATROPIU0.5 MG/3 M IN (13:30)
== END 2024-05-09 14:03 | disposition home or self-care (01) ==
LOC: ED 10:06
PROVIDERS: Emergency Medicine
DX: J44.1 Chronic obstructive pulmonary disease with (acute) exacerbation (principal); E11.9 Type 2 diabetes mellitus without complications; I11.0 Hypertensive heart disease with heart failure; I50.9 Heart failure, unspecified; F17.200 Nicotine dependence, unspecified, uncomplicated; Z86.711 Personal history of pulmonary embolism; Z79.01 Long term (current) use of anticoagulants

== ENCOUNTER 2024-06-02 23:02 | Inpatient (IN) | payer MEDICARE ==
[~2024-06-02] VITALS: Ht 175.3 cm; Wt 89.0 kg
[~2024-06-02 23:02] MED LIST changes: +CARVEDILOL12.5 MG PO
[2024-06-02 23:11] VITALS: BP 96/71
[2024-06-02] MEDS ORDERED: ONDANSETRON HCl 4 MG/2 ML SDV IV ONE (23:15)
[2024-06-02] MEDS ORDERED: MORPHINE SULFATE 4 MG/ML VIAL IV ONE (23:15)
[2024-06-02] MEDS ORDERED: IPRATROPIUM-Albuterol 0.5MG-2.5MG/3 ML NEB ONE (23:15)
[2024-06-02] MEDS ORDERED: SODIUM CHLORIDE 0.9% 1,000 ML IV ONE (23:15)
[2024-06-02 23:30] VITALS: BP 95/62
[2024-06-02 23:32] LABS: BASO% 0.2 % (0-3); EOS% 0.7 % (0-8); IMMATURE GRANULOCYTES 0.2 % (0.0-5.0); MEAN CELL VOLUME 84.7 fL CALC (80.0-100.0); MEAN CORPUSCULAR HGB 26.8 pG CALC (26.0-32.0); MEAN CORPUSCULAR HGB CONC 31.6 g/dL CAL (32.0-36.0); MONO% 10.6 % (2-13); NEUT# 8.74 thou/uL (1.82-7.42); NEUT% 80.3 % (42-76); RED BLOOD COUNT 5.49 mill/uL (4.70-6.10); RED CELL DISTRI WIDTH 14.1 % (11.5-15.5)
[2024-06-02 23:33] LABS: HEMATOCRIT 46.5 % (39.0-50.0); HEMOGLOBIN 14.7 g/dl (14.0-18.0)
[2024-06-02 23:45] LABS: ALBUMIN 3.6 g/dL (3.2-5.0); BILIRUBIN, TOTAL 0.7 mg/dL (0.2-1.3); CREATININE 1.4 mg/dL (0.7-1.3); POTASSIUM 4.1 mmol/l (3.5-5.1); TOTAL PROTEIN 6.6 g/dL (6.3-8.2)
[2024-06-03] VITALS (17 sets, daily range): BP systolic 90–142; BP diastolic 41–103
[2024-06-03] MEDS ORDERED: AMPICILLIN & SULBACTAM SODIUM 3 GM in SODIUM CHLORIDE 0.9% 100 ML IV ONE (01:20)
[2024-06-03] MEDS ORDERED: SODIUM CHLORIDE 0.9% 1,000 ML IV PRN ×2 (01:45→12:50)
[2024-06-03] MEDS ORDERED: ONDANSETRON HCl 4 MG/2 ML SDV IV PRN (01:50)
[2024-06-03] MEDS ORDERED: MORPHINE SULFATE 4 MG/ML VIAL IV PRN (01:50)
[2024-06-03 01:57] LABS: URINE BILIRUBIN - DIPSTICK Negative (NEGATIVE); URINE BLOOD DIPSTICK Small (NEGATIVE); URINE COLOR Yellow; URINE GLUCOSE - DIPSTICK >=1000 mg/dL (NEGATIVE); URINE KETONE Negative (NEGATIVE); URINE LEUK ESTERASE Trace (NEGATIVE); URINE NITRITE - DIPSTICK Negative (Negative); URINE PROTEIN - DIPSTICK Negative (NEG-TRACE); URINE UROBILINOGEN - DIPSTICK >=8.0 E.U./dL (0.2)
[2024-06-03 01:59] LABS: URINE SQUAMOUS EPITHELIAL CELL FEW EPI/hpf (0-FEW); URINE WBC 20-50 WBC/hpf (0-5)
[2024-06-03] MEDS ORDERED: ONDANSETRON HCl 4 MG/2 ML SDV IV ONE (02:50)
[2024-06-03] MEDS ORDERED: MORPHINE SULFATE 4 MG/ML VIAL IV ONE (02:50)
[2024-06-03] MEDS ORDERED: AMPICILLIN & SULBACTAM SODIUM 3 GM in SODIUM CHLORIDE 0.9% 100 ML IV SCH (06:00)
[2024-06-03] MEDS ORDERED: SODIUM CHLORIDE 0.9% 1,000 ML BAG IV ONE (08:53)
[2024-06-03] MEDS ORDERED: KETAMINE HCL 50 MG/ML 10 ML VIAL IV ONE (08:53)
[2024-06-03] MEDS ORDERED: PROPOFOL 200 MG/20 ML VIAL IV ONE (08:53)
[2024-06-03] MEDS ORDERED: LIDOCAINE HCL 2% 2ML SDV IV ONE (08:53)
[2024-06-03] MEDS ORDERED: MIDAZOLAM HCL 2 MG/2 ML VIAL IV ONE (08:53)
[2024-06-03] MEDS ORDERED: FARXIGA10 MG PO (10:45)
[2024-06-03] MEDS ORDERED: ENTRESTO 49-511 TAB PO (10:46)
[2024-06-03] MEDS ORDERED: JANUVIA100 MG PO (10:46)
[2024-06-03] MEDS ORDERED: ALDACTONE25 MG PO (10:47)
[2024-06-03] MEDS ORDERED: ALLOPURINOL300 MG PO (10:47)
[2024-06-03] MEDS ORDERED: MOTRIN800 MG PO (10:47)
[2024-06-03] MEDS ORDERED: IPRATROPIU0.5 MG/3 M IN (10:48)
[2024-06-03] MEDS ORDERED: PIPERACILLIN Sodium-Tazobactam 3.375 GM VIAL IV ONE (11:47)
[2024-06-03] MEDS ORDERED: SODIUM CHLORIDE 0.9% 100 ML IV ONE (11:47)
[2024-06-03] MEDS ORDERED: PIPERACILLIN Sodium-Tazobactam 3.375 GM in SODIUM CHLORIDE 0.9% 100 ML IV SCH (12:00)
[2024-06-03] MEDS ORDERED: LIDOcaine HCl 1% (Local Anesth.) 20 ML VIAL ONE (12:18)
[2024-06-03] MEDS ORDERED: DEXTROSE 250 ML IV PRN (12:50)
[2024-06-03] MEDS ORDERED: oxyCODONE 5MG/ ACETAMINOPHEN 325MG TAB PO PRN (12:50)
[2024-06-03] MEDS ORDERED: HYDROmorphone HCL 2 MG/AMP IV PRN (12:50)
[2024-06-03] MEDS ORDERED: ALBUTEROL SULFATE 8 GM INH IN PRN (12:55)
[2024-06-03] MEDS ORDERED: FUROSEMIDE 40 MG/TAB PO SCH (14:00)
[2024-06-03] MEDS ORDERED: ALLOPURINOL 100 MG/TAB PO SCH (14:00)
[2024-06-03] MEDS ORDERED: IPRATROPIUM-Albuterol 0.5MG-2.5MG/3 ML IN SCH (14:00)
[2024-06-03] MEDS ORDERED: CARVEDILOL 6.25 MG/TAB PO SCH (14:00)
[2024-06-03] MEDS ORDERED: SPIRONOLACTONE 25 MG/TAB PO SCH (14:00)
[2024-06-03] MEDS ORDERED: BUDESONIDE 180 MCG IN SCH (14:00)
[2024-06-03] MEDS ORDERED: INSULIN LISPRO 100 UNITS/ML ML SC SCH (17:00)
[2024-06-03] MEDS ORDERED: RIVAROXABAN 20 MG TAB PO SCH (17:00)
[2024-06-04 06:01] LABS: BASO% 0.2 % (0-3); EOS% 0.8 % (0-8); HEMATOCRIT 45.8 % (39.0-50.0); HEMOGLOBIN 14.1 g/dl (14.0-18.0); IMMATURE GRANULOCYTES 0.4 % (0.0-5.0); MEAN CELL VOLUME 88.6 fL CALC (80.0-100.0); MEAN CORPUSCULAR HGB 27.3 pG CALC (26.0-32.0); MEAN CORPUSCULAR HGB CONC 30.8 g/dL CAL (32.0-36.0); MONO% 8.6 % (2-13); NEUT# 9.67 thou/uL (1.82-7.42); RED BLOOD COUNT 5.17 mill/uL (4.70-6.10); RED CELL DISTRI WIDTH 14.1 % (11.5-15.5)
[2024-06-04 06:10] LABS: ALBUMIN 2.9 g/dL (3.2-5.0); BILIRUBIN, TOTAL 0.7 mg/dL (0.2-1.3); CREATININE 1.3 mg/dL (0.7-1.3); POTASSIUM 4.6 mmol/l (3.5-5.1); TOTAL PROTEIN 5.6 g/dL (6.3-8.2)
[2024-06-04 07:04] VITALS: BP 92/64
[2024-06-04] MEDS ORDERED: INFLUENZA VIRUS VACCINE FLUZONE HD 2024/25 0.5 ML INJ IM SCH (09:00)
[2024-06-04] MEDS ORDERED: IPRATROPIUM-Albuterol 0.5MG-2.5MG/3 ML IN PRN (10:00)
[2024-06-04] MEDS ORDERED: VANCOMYCIN HCL 1 GM in SODIUM CHLORIDE 0.9% 250 ML IV SCH (11:00)
[2024-06-04 14:42] VITALS: BP 96/63
[2024-06-04 17:24] VITALS: BP 96/63
[2024-06-04 19:58] VITALS: BP 103/65
[2024-06-04 21:15] VITALS: BP 98/62
[2024-06-04 21:17] VITALS: BP 96/62
[2024-06-05 04:18] VITALS: BP 92/61
[2024-06-05 05:53] VITALS: BP 99/69
[2024-06-05 05:54] LABS: BASO% 0.4 % (0-3); EOS% 2.1 % (0-8); HEMATOCRIT 40.9 % (39.0-50.0); HEMOGLOBIN 12.7 g/dl (14.0-18.0); IMMATURE GRANULOCYTES 0.3 % (0.0-5.0); LYMPH% 15.7 % (15-41); MEAN CORPUSCULAR HGB CONC 31.1 g/dL CAL (32.0-36.0); MONO% 10.6 % (2-13); NEUT# 4.95 thou/uL (1.82-7.42); NEUT% 70.9 % (42-76); RED BLOOD COUNT 4.7 mill/uL (4.70-6.10); RED CELL DISTRI WIDTH 13.9 % (11.5-15.5)
[2024-06-05 05:57] LABS: ALBUMIN 2.6 g/dL (3.2-5.0); BILIRUBIN, TOTAL 0.5 mg/dL (0.2-1.3); CREATININE 1.2 mg/dL (0.7-1.3); MAGNESIUM 2.2 mg/dL (1.6-2.3); POTASSIUM 4.1 mmol/l (3.5-5.1); TOTAL PROTEIN 5.2 g/dL (6.3-8.2)
[2024-06-05] MEDS ORDERED: AMOXICILLIN & POT CLAVULANATE 875 MG/TAB PO SCH (10:00)
[2024-06-05] MEDS ORDERED: DOXYCYCLINE HYCLATE 100 MG/CAP PO SCH (12:30)
[2024-06-05 14:28] VITALS: BP 109/71
[2024-06-05 17:52] VITALS: BP 94/65
[2024-06-05 18:30] VITALS: BP 94/65
[2024-06-06 02:59] VITALS: BP 112/74
[2024-06-06 04:00] VITALS: BP 112/74
[2024-06-06 05:04] LABS: BASO% 0.4 % (0-3); EOS% 2.3 % (0-8); HEMATOCRIT 40.6 % (39.0-50.0); HEMOGLOBIN 12.7 g/dl (14.0-18.0); IMMATURE GRANULOCYTES 0.5 % (0.0-5.0); LYMPH% 19.6 % (15-41); MEAN CORPUSCULAR HGB 26.9 pG CALC (26.0-32.0); MEAN CORPUSCULAR HGB CONC 31.3 g/dL CAL (32.0-36.0); MONO% 8.9 % (2-13); NEUT# 4.98 thou/uL (1.82-7.42); NEUT% 68.3 % (42-76); RED BLOOD COUNT 4.72 mill/uL (4.70-6.10); RED CELL DISTRI WIDTH 13.5 % (11.5-15.5)
[2024-06-06 05:18] LABS: BILIRUBIN, TOTAL 0.4 mg/dL (0.2-1.3); CREATININE 1.2 mg/dL (0.7-1.3); POTASSIUM 4.6 mmol/l (3.5-5.1); TOTAL PROTEIN 5.7 g/dL (6.3-8.2)
[2024-06-06 07:00] VITALS: BP 97/69
[2024-06-06 08:17] VITALS: BP 103/64
[2024-06-06 09:20] VITALS: BP 103/64
[2024-06-06] MEDS ORDERED: PERCOCET 5/325M1 TAB PO (09:33)
[2024-06-06] MEDS ORDERED: DOXYCYCLINE HY100 MG PO (11:17)
== END 2024-06-06 13:54 | DRG 603 ==
LOC: ED 23:02 → ED-I 06-03 01:20 → ED 06-03 01:43 → MS2 06-03 01:44
PROVIDERS: Family Medicine; Nurse Practitioner Family; ADMIT Surgery; ATTEND Surgery
PROC: 0W9M0ZZ Drainage of Male Perineum, Open Approach (ICD-10-PCS; principal; 2024-06-03)
DX: L02.215 Cutaneous abscess of perineum (principal); I13.0 Hypertensive heart and chronic kidney disease with heart failure and stage 1 through stage 4 chronic kidney disease, or unspecified chronic kidney disease; E11.22 Type 2 diabetes mellitus with diabetic chronic kidney disease; I50.9 Heart failure, unspecified; N18.9 Chronic kidney disease, unspecified; J44.9 Chronic obstructive pulmonary disease, unspecified; I25.10 Atherosclerotic heart disease of native coronary artery without angina pectoris; I48.0 Paroxysmal atrial fibrillation; F14.10 Cocaine abuse, uncomplicated; E78.5 Hyperlipidemia, unspecified; K59.00 Constipation, unspecified; F17.210 Nicotine dependence, cigarettes, uncomplicated; Z79.01 Long term (current) use of anticoagulants; Z95.5 Presence of coronary angioplasty implant and graft; Z86.711 Personal history of pulmonary embolism; Z95.0 Presence of cardiac pacemaker; Z86.19 Personal history of other infectious and parasitic diseases; Z20.822 Contact with and (suspected) exposure to COVID-19
CPT/HCPCS: 90662; J1100; J1171; J1815; J2405; J2543; J3370; J7626